=== PATIENT | male | born 1975 | race Caucasian/White ===

== ENCOUNTER 2016-11-03 15:47 | Emergency (ER) | payer OTHER ==
[~2016-11-03 15:47] MED LIST: ADV100INH INH; ALBU83IN IN; ASMA110A INH; CYCL10TA PO; FLEXERIL PO; IMOD2TAB16 PO; LIDO1DIS2 TOP; NAPR1TAB86 PO; NAPR500T OR; PROA1AER INH; PROZ20CA11 PO; RANI150T PO; REMERON PO; TRAM50TA2 OR; TRAM50TA2 PO; TRAZ100T OR; TRAZ100T4 PO; VITA200016 PO; VITAMIN B COMPLE1 PO; VITATAB11 PO; ZANT150T OR
--- NOTE | 2016-11-03 16:21 | REP ---
Chest one-view HISTORY: Chest pain Comparison: 09/06/2016 The lungs are clear. The heart is normal in size. The pulmonary vasculature is normal in appearance. Impression: No acute disease. Signed by Osito Becerra MD 11/03/2016 04:13 P
[2016-11-03 16:31] LABS: BASO % 0.4 % (0.0-1.0); EOS # 0.1 K/mm3 (0.0-0.50); EOS % 1.3 % (0.0-3.0); LARGE UNSTAINED CELL # 0.2 K/mm3 (0.0-0.4); LYMPH # 1.4 K/mm3 (1.5-4.5); LYMPH % 22.5 % (24.0-44.0); MEAN CORPUSCULAR HEMOGLOBIN 30.3 pg (27.0-33.0); MEAN CORPUSCULAR VOLUME 89.1 fl (80.0-96.0); MONO # 0.4 K/mm3 (0.0-0.8); MONO % 5.7 % (0.0-5.0); NEUTROPHILS # 4.2 K/mm3 (1.8-7.7); NEUTROPHILS % 67.1 % (36.0-66.0); PLATELET COUNT, AUTOMATED 222 k/mm3 (150-450); WHITE BLOOD COUNT 6.2 K/mm3 (4.0-10.0)
[2016-11-03] MEDS ORDERED: ASPIRIN 81 MG CHEW TABLET As Ordered ONE (16:32)
[2016-11-03 16:56] LABS: ANION GAP 9 MEQ/L (8-16); BLOOD UREA NITROGEN 18 MG/DL (7-18); CALCIUM LEVEL 8.2 MG/DL (8.5-10.1); CARBON DIOXIDE LEVEL 25 MEQ/L (21-32); CHLORIDE LEVEL 110 MEQ/L (98-107); CREATININE FOR GFR 1.21 MG/DL (0.70-1.30); GLOMERULAR FILTRATION RATE > 60.0 (>60); GLUCOSE, FASTING 127 MG/DL (70-105); POTASSIUM SERUM 4.2 MEQ/L (3.5-5.1); SODIUM LEVEL 144 MEQ/L (136-145)
[2016-11-03] MEDS ORDERED: KETOROLAC 30 MG/ML VIAL (J1885) As Ordered ONE (17:06)
--- NOTE | 2016-11-03 22:53 | EDDOCDS ---
Nurse's Notes [facility] Name: Brittany Blanc Age: 41 yrs Sex: Male : 1975 Arrival Date: 11/03/2016 Time: 15:47 Bed OBSERVATION Private MD: Pawan Mcrae M Diagnosis: Other chest pain Presentation: 11/03 15:54 Presenting complaint:. dwg 15:54 Presenting complaint: Patient states: Left sided chest pain for 2 days, ''on and off'', dwg much worse since 3pm today. Aspirin was not taken prior to arrival. Adult Sepsis Screening: The patient does not have new or worsening altered mentation. Patient's respiratory rate is less than 22. Systolic blood pressure is greater than 100. Patient has a qSOFA score of 0- Negative Sepsis Screen. Suicide/Homicide risk assessment- the patient denies having any suicidal and/or homicidal ideations and does not present with any other emotional, behavioral or mental health complaints. Status: Patient is not a director of food and nutrition services or dependent. Transition of care: patient was not received from another setting of care. 15:54 Acuity: STACY Level 2 dwg 15:54 Method Of Arrival: Walkin/Carried/Asstd dwg Triage Assessment: 15:56 General: Appears in no apparent distress, Behavior is cooperative. Pain: Pain currently dwg is 7 out of 10 on a pain scale. HIV screening NA for this visit Offered previously. Historical: - Allergies: no known allergies; - Home Meds: 1. none - PMHx: Kidney stones; Migraine Headaches; Asthma; - PSHx: Left elbow tendon repair; - Social history: Smoking status: Patient states former smoker of tobacco. No barriers to communication noted, The patient speaks fluent Lithuanian. - Family history: Father has/had cerebrovascular accident, cardiac disorder. - : The pt / caregiver states he / she is not on anticoagulants. Home medication list is obtained from the patient. - Exposure Risk Screening:: None identified. Screenin:18 Screening information is obtained from the patient. Fall risk: No risks identified. kr3 Assistance ADL's: requires no assistance with activities of daily living. Abuse/DV Screen: The patient / caregiver reports he/she is: not in a situation that causes fear, pain or injury. Nutritional screening: No deficits noted. Advance Directives: Currently, there is no health care proxy. home support is adequate. Assessment: 16:19 General: Appears in no apparent distress, comfortable, Behavior is cooperative. Pain: kr3 Location: chest Pain currently is 7 out of 10 on a pain scale. Pain radiates to left arm Quality of pain is described as tingling left arm. Neurological: No deficits noted. Cardiovascular: Rhythm is sinus rhythm No ectopy. Respiratory: Respiratory effort is even, unlabored, Breath sounds are clear bilaterally. Denies shortness of breath. Derm: Skin is normal. 17:09 Reassessment: Patient appears in no apparent distress at this time. Reassessment: kr3 informed of plan for redraws at 930PM. Pain: Location: chest Pain currently is 3 out of 10 on a pain scale. Respiratory: Respiratory effort is even, unlabored. Derm: Skin is pink, warm & dry. 18:04 Reassessment: Patient appears in no apparent distress at this time. Patient denies pain kr3 at this time. Respiratory: Respiratory effort is even, unlabored. 18:04 Adult Sepsis Screening: The patient does not have new or worsening altered mentation. kr3 Patient's respiratory rate is less than 22. Systolic blood pressure is greater than 100. Patient has a qSOFA score of 0- Negative Sepsis Screen. 19:23 General: Appears in no apparent distress, comfortable, Behavior is cooperative, mlc pleasant. Pain: Location: anterior aspect of left upper chest and left breast Pain currently is 4 out of 10 on a pain scale. Neurological: Level of Consciousness is awake, alert, Oriented to person, place, time. Cardiovascular: Capillary refill < 3 seconds Heart tones S1 S2 present Rhythm is sinus rhythm. Respiratory: Airway is patent Respiratory effort is even, unlabored, Respiratory pattern is regular, Breath sounds are clear bilaterally. Derm: Skin is pink, warm & dry. 20:32 Reassessment: Patient appears in no apparent distress at this time. pt resting mlc comfortably in bed, resp easy/unlabored. pt offers no complaints. . 21:40 Reassessment: Patient appears in no apparent distress at this time. pt resting mlc comfortably in bed, offers no complaints. labs sent per order. 22:50 General: Appears in no apparent distress, comfortable, Behavior is cooperative. mlc Neurological: Level of Consciousness is awake, alert, Oriented to person, place, time. Respiratory: Airway is patent Respiratory effort is even, unlabored, Respiratory pattern is regular. Derm: Skin is pink, warm & dry. Vital Signs: 15:49 BP 149 / 93; Pulse 89; Resp 18 S; Temp 96.7(O); Pulse Ox 100% on R/A; Weight 122.47 kg gr2 (R); Height 6 ft. 8 in. (203.20 cm) (R); Pain 3/10; 16:15 BP 129 / 86 (auto/); kr3 16:16 Pulse 80 MON; kr3 16:45 BP 129 / 73 (auto/); kr3 16:46 Pulse 70 MON; Resp 16; Pulse Ox 95% on R/A; kr3 17:15 BP 128 / 71 (auto/); kr3 17:16 Pulse 64 MON; Resp 16; Pulse Ox 95% on R/A; kr3 17:45 BP 125 / 76 (auto/); kr3 17:46 Pulse 62 MON; Resp 16; Pulse Ox 96% on R/A; kr3 18:15 BP 123 / 73 (auto/); kr3 18:16 Pulse 60 MON; Resp 16; Pulse Ox 96% on R/A; kr3 18:45 BP 124 / 79 (auto/); mlc 18:46 Pulse 56 MON; Pulse Ox 96% ; mlc 19:15 BP 127 / 82 (auto/); mlc 19:16 Pulse 58 MON; Pulse Ox 97% ; mlc 19:45 BP 125 / 67 (auto/); mlc 19:46 Pulse 56 MON; Pulse Ox 96% ; mlc 20:15 BP 130 / 83 (auto/); mlc 20:16 Pulse 64 MON; Pulse Ox 97% ; mlc 20:45 BP 131 / 85 (auto/); mlc 20:46 Pulse 66 MON; Pulse Ox 97% ; mlc 21:15 BP 132 / 86 (auto/); mlc 21:16 Pulse 68 MON; Pulse Ox 97% ; mlc 21:38 Pulse 70 MON; Pulse Ox 97% ; mlc 21:45 BP 143 / 94 (auto/); mlc 21:46 Pulse 64 MON; Pulse Ox 96% ; mlc 22:15 BP 134 / 88 (auto/); mlc 22:16 Pulse 70 MON; Pulse Ox 95% ; mlc 22:47 BP 147 / 90; Pulse 75; Resp 18; Temp 98.2(TE); Pulse Ox 97% on R/A; Pain 0/10; mirtha 15:49 Body Mass Index 29.66 (122.47 kg, 203.20 cm) gr2 Vitals: 15:49 Log In Time: November 03, 2016 at 15:49. RN notified that patient meets Red Flag gr2 criteria. ED Course: 15:49 Patient visited by Zak Bernal. gr2 15:49 Pawan Mcrae is Private Physician. gr2 15:49 Patient moved to Waiting gr2 15:52 Patient visited by Zak Bernal. gr2 15:52 Patient moved to Pre RCE gr2 15:56 Triage Initiated dwg 15:57 Patient moved to 11 dwg 15:58 Anita Sage MD is Attending Physician. sd1 16:04 Patient visited by Anita Sage MD. sd1 16:18 The patient / caregiver is instructed regarding the plan of care and ED course. Patient kr3 has correct armband on for positive identification. Placed in gown. Bed in low position. Call light in reach. Side rails up X2. vehicle monitor technician on. Pulse ox on. NIBP on. 16:19 Inserted saline lock: 20 gauge in right forearm and blood collected. kr3 16:20 Patient visited by Keith Vilchis. dem1 16:20 Basic Metabolic Profile Sent. kr3 16:20 CBC with Diff Sent. kr3 16:20 Cardiac Injury Profile Sent. kr3 16:20 Troponin Sent. kr3 16:20 EKG done. (by ED staff). Reviewed by Anita Sage MD. dem1 16:24 portable chest Returned. EDMS 17:08 Patient moved to OBSERVATION sd1 17:58 [facility] Payment Agreement was scanned into [employer] and attached to record. ks16 19:00 Ingrid Friedman,KING is Primary Nurse. mlc 19:12 Attending Physician role handed off by Anita Sage MD cs11 19:12 Fabio Rosales DO is Attending Physician. cs11 19:31 Patient visited by Ingrid Friedman,KING. mlc 20:33 Patient visited by Ingrid Friedman,KING. mlc 21:35 Patient visited by Deniz Bain PCA. jmv 21:35 EKG done. (by ED staff). Reviewed by Fabio Rosales DO. jmv 21:39 CARDIAC MARKER PANEL Sent. mlc 21:40 Patient visited by Ingrid Friedman RN. mlc 21:46 Discontinued IV lock intact, bleeding controlled, pressure dressing applied, No mlc redness/swelling at site. No procedures done that require assistance. 22:32 Pawan Mcrae is Referral Physician. cs11 22:32 Jim Franklin MD is Referral Physician. cs11 22:48 Patient visited by Roro Peguero PCA. mirtha Administered Medications: 16:32 Not Given (Duplicate Order): Aspirin Delayed Release Tablet 81 mg PO once sd1 16:34 Drug: Aspirin 81 mg [aspirin 81 mg chewable tablet (1 tabs)] Route: PO; kr3 17:09 Drug: ketorolac 30 mg [ketorolac 30 mg/mL (1 mL) injection solution (1 mL)] Route: IVP; kr3 Site: right forearm; 18:04 Follow up: Response: Pain is resolved kr3 Order Results: Lab Order: Basic Metabolic Profile; SPEC'M 11/03/16 16:16 Test: GLUCOSE, FASTING; Value: 127; Range: 70-105; Abnormal: Above high normal; Units: MG/DL; Status: F Test: BLOOD UREA NITROGEN; Value: 18; Range: 7-18; Units: MG/DL; Status: F Test: CREATININE FOR GFR; Value: 1.21; Range: 0.70-1.30; Units: MG/DL; Status: F Test: GLOMERULAR FILTRATION RATE; Value: > 60.0; Range: >60; Status: F Test: SODIUM LEVEL; Value: 144; Range: 136-145; Units: MEQ/L; Status: F Test: POTASSIUM SERUM; Value: 4.2; Range: 3.5-5.1; Units: MEQ/L; Status: F Test: CHLORIDE LEVEL; Value: 110; Range: 98-107; Abnormal: Above high normal; Units: MEQ/L; Status: F Test: CARBON DIOXIDE LEVEL; Value: 25; Range: 21-32; Units: MEQ/L; Status: F Test: ANION GAP; Value: 9; Range: 8-16; Units: MEQ/L; Status: F Test: CALCIUM LEVEL; Value: 8.2; Range: 8.5-10.1; Abnormal: Below low normal; Units: MG/DL; Status: F Test Note: ; Units are mL/min/1.73 m2 Chronic Kidney Disease Staging per NKF: Stage I & II GFR >=60 Normal to Mildly Decreased Stage III GFR 30-59 Moderately Decreased Stage IV GFR 15-29 Severely Decreased Stage V GFR <15 Very Little GFR Left ESRD GFR <15 on CYBER REVERSE ENGINEER Lab Order: CBC with Diff; SPEC'M 11/03/16 16:16 Test: WHITE BLOOD COUNT; Value: 6.2; Range: 4.0-10.0; Units: K/mm3; Status: F Test: RED BLOOD COUNT; Value: 4.85; Range: 4.30-6.10; Units: M/mm3; Status: F Test: HEMOGLOBIN; Value: 14.7; Range: 14.0-18.0; Units: g/dl; Status: F Test: HEMATOCRIT; Value: 43.2; Range: 42.0-52.0; Units: %; Status: F Test: MEAN CORPUSCULAR VOLUME; Value: 89.1; Range: 80.0-96.0; Units: fl; Status: F Test: MEAN CORPUSCULAR HEMOGLOBIN; Value: 30.3; Range: 27.0-33.0; Units: pg; Status: F Test: MEAN CORPUSCULAR HGB CONC; Value: 34.0; Range: 32.0-36.5; Units: g/dl; Status: F Test: RED CELL DISTRIBUTION WIDTH; Value: 13.0; Range: 11.5-14.5; Units: %; Status: F Test: PLATELET COUNT, AUTOMATED; Value: 222; Range: 150-450; Units: k/mm3; Status: F Test: NEUTROPHILS %; Value: 67.1; Range: 36.0-66.0; Abnormal: Above high normal; Units: %; Status: F Test: LYMPH %; Value: 22.5; Range: 24.0-44.0; Abnormal: Below low normal; Units: %; Status: F Test: MONO %; Value: 5.7; Range: 0.0-5.0; Abnormal: Above high normal; Units: %; Status: F Test: EOS %; Value: 1.3; Range: 0.0-3.0; Units: %; Status: F Test: BASO %; Value: 0.4; Range: 0.0-1.0; Units: %; Status: F Test: LARGE UNSTAINED CELL %; Value: 3.0; Range: 0.0-4.0; Units: %; Status: F Test: NEUTROPHILS #; Value: 4.2; Range: 1.8-7.7; Units: K/mm3; Status: F Test: LYMPH #; Value: 1.4; Range: 1.5-4.5; Abnormal: Below low normal; Units: K/mm3; Status: F Test: MONO #; Value: 0.4; Range: 0.0-0.8; Units: K/mm3; Status: F Test: EOS #; Value: 0.1; Range: 0.0-0.50; Units: K/mm3; Status: F Test: BASO #; Value: 0.0; Range: 0.0-0.2; Units: K/mm3; Status: F Test: LARGE UNSTAINED CELL #; Value: 0.2; Range: 0.0-0.4; Units: K/mm3; Status: F Lab Order: Cardiac Injury Profile; SPEC'M 11/03/16 16:16 Test: CPK CREATINE PHOSPHOKINASE; Value: 176; Range: 39-308; Units: U/L; Status: F Test: CK-MB VALUE MASS; Value: 1.1; Range: 0.0-3.6; Units: NG/ML; Status: F Test: MB/CK RELATIVE INDEX; Value: 0.62; Range: < OR =4; Status: F Test Note: ; DIAGNOSIS CRITERIA MMB ng/ml Relative Index (RI) NON-AMI < or = 5 N/A RODRIGUEZ ZONE > 5 < or = 4 AMI > 5 > 4 Lab Order: Troponin; SPEC'M 11/03/16 16:16 Test: TROPONIN I; Value: < 0.02; Range: < 0.10; Units: NG/ML; Status: F Test Note: ; Troponin I Reference Interval for [place] LOCI: 99th Percentile= 0.00-0.045 ng/ml Risk Stratification: <= 0.10 ng/ml Decreased Risk for Adverse Clinical Events. 0.10-1.50 ng/ml Increased Risk for Adverse Clinical Events. Evaluation of additional criterion and/or repeat testing in 2-6 hours is suggested to rule out myocardial damage. >= 1.50 ng/ml Indicative of Myocardial Injury. Lab Order: CARDIAC MARKER PANEL; SPEC'M 11/03/16 21:38 Test: CPK CREATINE PHOSPHOKINASE; Value: 140; Range: 39-308; Units: U/L; Status: F Test: CK-MB VALUE MASS; Value: 1.0; Range: 0.0-3.6; Units: NG/ML; Status: F Test: MB/CK RELATIVE INDEX; Value: 0.71; Range: < OR =4; Status: F Test: TROPONIN I; Value: < 0.02; Range: < 0.10; Units: NG/ML; Status: F Test Note: ; DIAGNOSIS CRITERIA MMB ng/ml Relative Index (RI) NON-AMI < or = 5 N/A RODRIGUEZ ZONE > 5 < or = 4 AMI > 5 > 4 Lab Order: D-Dimer Quant; SPEC'M 11/03/16 16:16 Test: D-DIMER QUANT; Value: < 270.0; Range: <500; Units: ng/ml; Status: F Radiology Order: portable chest Test: portable chest REASON FOR EXAMINATION: Chest Pain; Chest one-view; ; HISTORY: Chest pain; ; Comparison: 09/06/2016; ; The lungs are clear. The heart is normal in size. The pulmonary vasculature is; normal in appearance.; ; Impression: No acute disease.; ; ; Signed by; Osito Becerra MD 11/03/2016 04:13 P; Outcome: 21:46 Discharge Assessment: Patient awake, alert and oriented x 3. No cognitive and/or mlc functional deficits noted. Patient verbalized understanding of disposition instructions. patient administered narcotics - no. The following High Risk Discharge criteria are identified: None. Discharged to home ambulatory. Condition: good Condition: stable. Discharge instructions given to patient, Instructed on discharge instructions, follow up and referral plans. medication usage, Demonstrated understanding of instructions, medications, Pt was receptive of discharge instructions/ teaching. Prescriptions given X 1. No special radiology studies were completed. Property sent home with patient. 22:32 Discharge ordered by Provider. cs11 22:52 [place]. [facility] [place] Signatures: Dispatcher [employer] EDMS Anita Sage MD MD sd1 Ricky Echevarria, RN RN dwg Jasmyne Christine,KING RN kr3 Sudhir, Roro, EVP SALES EVP SALES mirtha Deng, Keith dem1 Fabio Rosales, DO DO cs11 Zak Bernal gr2 Ingrid Friedman,KING RN [facility] [place] Concetta, Edyta, Reg Reg ks16 Bain, Deniz, EVP SALES EVP SALES jmv MTDD
--- NOTE | 2016-11-03 22:53 | EDDOCDS ---
Physician Documentation [facility] Name: Brittany Blanc Age: 41 yrs Sex: Male : 1975 Arrival Date: 11/03/2016 Time: 15:47 Bed OBSERVATION Private MD: Pawan Mcrae M Disposition: 11/03/16 22:32 Discharged to Home/Self Care. Impression: Other chest pain. - Condition is Stable. - Discharge Instructions: Angina Pectoris, Nonspecific Chest Pain, Chest Wall Pain, Gastroesophageal Reflux Disease, Adult. - Prescriptions for Aspirin 81 mg - take 1 tablet by ORAL route once daily; 90 tablet. - Medication Reconciliation, Local Pharmacy Hours form. - Follow up: Pawan Mcrae; When: Call to arrange an appointment. Follow up: Jim Franklin; When: Call to arrange an appointment. - Problem is new. - Symptoms have improved. Historical: - Allergies: no known allergies; - Home Meds: 1. none - PMHx: Kidney stones; Migraine Headaches; Asthma; - PSHx: Left elbow tendon repair; - Social history: Smoking status: Patient states former smoker of tobacco. No barriers to communication noted, The patient speaks fluent Syriac. - Family history: Father has/had cerebrovascular accident, cardiac disorder. - : The pt / caregiver states he / she is not on anticoagulants. Home medication list is obtained from the patient. - Exposure Risk Screening:: None identified. Vital Signs: 11/03 15:49 BP 149 / 93; Pulse 89; Resp 18 S; Temp 96.7(O); Pulse Ox 100% on R/A; Weight 122.47 kg gr2 / 270 lbs (R); Height 6 ft. 8 in. (203.20 cm) (R); Pain 3/10; 16:15 BP 129 / 86 (auto/); kr3 16:16 Pulse 80 MON; kr3 16:45 BP 129 / 73 (auto/); kr3 16:46 Pulse 70 MON; Resp 16; Pulse Ox 95% on R/A; kr3 17:15 BP 128 / 71 (auto/); kr3 17:16 Pulse 64 MON; Resp 16; Pulse Ox 95% on R/A; kr3 17:45 BP 125 / 76 (auto/); kr3 17:46 Pulse 62 MON; Resp 16; Pulse Ox 96% on R/A; kr3 18:15 BP 123 / 73 (auto/); kr3 18:16 Pulse 60 MON; Resp 16; Pulse Ox 96% on R/A; kr3 18:45 BP 124 / 79 (auto/); mlc 18:46 Pulse 56 MON; Pulse Ox 96% ; mlc 19:15 BP 127 / 82 (auto/); mlc 19:16 Pulse 58 MON; Pulse Ox 97% ; mlc 19:45 BP 125 / 67 (auto/); mlc 19:46 Pulse 56 MON; Pulse Ox 96% ; mlc 20:15 BP 130 / 83 (auto/); mlc 20:16 Pulse 64 MON; Pulse Ox 97% ; mlc 20:45 BP 131 / 85 (auto/); mlc 20:46 Pulse 66 MON; Pulse Ox 97% ; mlc 21:15 BP 132 / 86 (auto/); mlc 21:16 Pulse 68 MON; Pulse Ox 97% ; mlc 21:38 Pulse 70 MON; Pulse Ox 97% ; mlc 21:45 BP 143 / 94 (auto/); mlc 21:46 Pulse 64 MON; Pulse Ox 96% ; mlc 22:15 BP 134 / 88 (auto/); mlc 22:16 Pulse 70 MON; Pulse Ox 95% ; mlc 22:47 BP 147 / 90; Pulse 75; Resp 18; Temp 98.2(TE); Pulse Ox 97% on R/A; Pain 0/10; mirtha 15:49 Body Mass Index 29.66 (122.47 kg, 203.20 cm) gr2 MDM: 15:58 Marine Drafter/Pulse Ox/q 30 min VS ordered. sd1 15:58 IV Saline Lock ordered. sd1 15:58 Rhythm Strip to chart ordered. sd1 15:58 Undress patient appropriately for examination ordered. sd1 16:01 portable chest Ordered. EDMS 16:01 Basic Metabolic Profile Ordered. EDMS 16:01 CBC with Diff Ordered. EDMS 16:01 Cardiac Injury Profile Ordered. EDMS 16:01 Troponin Ordered. EDMS 16:01 ECG WITH READING ER PHYS+CARDIAG ordered. EDMS 16:23 Aspirin Delayed Release Tablet 81 mg PO once ordered. sd1 16:32 Aspirin Chewable Tablet 81 mg PO once ordered. sd1 16:49 CBC with Diff Reviewed. sd1 16:49 portable chest Reviewed. sd1 17:03 Basic Metabolic Profile Reviewed. sd1 17:03 Cardiac Injury Profile Reviewed. sd1 17:03 Troponin Reviewed. sd1 17:04 ketorolac 30 mg IVP once ordered. sd1 17:04 Redraw CIP &Troponin (put time in details section) ordered. sd1 17:05 Repeat EKG (put time details section) ordered. sd1 17:05 Misc. Nursing Order ordered. sd1 17:19 Redraw CIP &Troponin (put time in details section) complete. deg 17:19 Repeat EKG (put time details section) complete. deg 17:19 ECG WITH READING ER PHYS ordered. EDMS 17:20 CARDIAC MARKER PANEL Ordered. EDMS 17:35 D-Dimer Quant Ordered. EDMS 17:46 Financial registration complete. ks16 17:58 [facility] Payment Agreement was scanned into [employer] and attached to record. ks16 18:36 D-Dimer Quant Reviewed. sd1 Administered Medications: 16:32 Not Given (Duplicate Order): Aspirin Delayed Release Tablet 81 mg PO once sd1 16:34 Drug: Aspirin 81 mg [aspirin 81 mg chewable tablet (1 tabs)] Route: PO; kr3 17:09 Drug: ketorolac 30 mg [ketorolac 30 mg/mL (1 mL) injection solution (1 mL)] Route: IVP; kr3 Site: right forearm; 18:04 Follow up: Response: Pain is resolved kr3 Signatures: Dispatcher [employer] Anita Mota MD MD sd1 Shannan Bullock, Ranger Aide Unit deg Ricky Echevarria RN RN dwg Robie, Kathleen, RN RN kr3 Fabio Rosales, DO cs11 Ingrid Friedman RN RN mlc Sorenson, Kimberly, Reg Reg ks16 The chart was reviewed and I authenticate all verbal orders and agree with the evaluation and treatment provided.Attachments: 17:58 [facility] [place] Agreement ks16 MTDD
--- NOTE | 2016-11-04 07:28 | ECGEPIP ---
Stationary ECG Study [facility] - ED Test Date: 2016-11-03 Pat Name: ALFONSO JAIME Department: Room: - Gender: M Bioinformatics Team Member: yaya : 1975 Requested By: Anita Sage Order Number: [id number] Reading MD: Anita Sage Measurements Intervals [place] Rate: 75 P: 67 IN: 155 QRS: 55 QRSD: 97 T: 55 QT: 361 QTc: 403 Interpretive Statements SINUS RHYTHM LVH NSTTW ABNORMALITY SIMILAR 09/06/16 Electronically Signed On 11-04-2016 7:28:09 EST by Anita Sage
--- NOTE | 2016-11-04 07:35 | ECGEPIP ---
Stationary ECG Study [facility] - ED Test Date: 2016-11-03 Pat Name: ALFONSO JAIME Department: Room: - Gender: M Aircraft Time Clerk: aleksander : 1975 Requested By: Anita Sage Order Number: [id number] Reading MD: Anita Sage Measurements Intervals [place] Rate: 71 P: 50 PA: 145 QRS: 39 QRSD: 100 T: 38 QT: 386 QTc: 422 Interpretive Statements SINUS RHYTHM NSTTW ABNORMALITY SIMILAR 11/03/16 16:20 Electronically Signed On 11-04-2016 7:35:26 EST by Anita Sage
--- NOTE | 2016-11-05 23:53 | EDDOCDS ---
Physician Documentation [facility] Name: Brittany Blanc Age: 41 yrs Sex: Male : 1975 Arrival Date: 11/03/2016 Time: 15:47 Bed OBSERVATION Private MD: Pawan Mcrae M Disposition: 11/03/16 22:32 Discharged to Home/Self Care. Impression: Other chest pain. - Condition is Stable. - Discharge Instructions: Angina Pectoris, Nonspecific Chest Pain, Chest Wall Pain, Gastroesophageal Reflux Disease, Adult. - Prescriptions for Aspirin 81 mg - take 1 tablet by ORAL route once daily; 90 tablet. - Medication Reconciliation, Local Pharmacy Hours form. - Follow up: Pawan Mcrae; When: Call to arrange an appointment. Follow up: Jim Franklin; When: Call to arrange an appointment. - Problem is new. - Symptoms have improved. Historical: - Allergies: no known allergies; - Home Meds: 1. none - PMHx: Kidney stones; Migraine Headaches; Asthma; - PSHx: Left elbow tendon repair; - Social history: Smoking status: Patient states former smoker of tobacco. No barriers to communication noted, The patient speaks fluent Yoruba. - Family history: Father has/had cerebrovascular accident, cardiac disorder. - : The pt / caregiver states he / she is not on anticoagulants. Home medication list is obtained from the patient. - Exposure Risk Screening:: None identified. Vital Signs: 11/03 15:49 BP 149 / 93; Pulse 89; Resp 18 S; Temp 96.7(O); Pulse Ox 100% on R/A; Weight 122.47 kg gr2 / 270 lbs (R); Height 6 ft. 8 in. (203.20 cm) (R); Pain 3/10; 16:15 BP 129 / 86 (auto/); kr3 16:16 Pulse 80 MON; kr3 16:45 BP 129 / 73 (auto/); kr3 16:46 Pulse 70 MON; Resp 16; Pulse Ox 95% on R/A; kr3 17:15 BP 128 / 71 (auto/); kr3 17:16 Pulse 64 MON; Resp 16; Pulse Ox 95% on R/A; kr3 17:45 BP 125 / 76 (auto/); kr3 17:46 Pulse 62 MON; Resp 16; Pulse Ox 96% on R/A; kr3 18:15 BP 123 / 73 (auto/); kr3 18:16 Pulse 60 MON; Resp 16; Pulse Ox 96% on R/A; kr3 18:45 BP 124 / 79 (auto/); mlc 18:46 Pulse 56 MON; Pulse Ox 96% ; mlc 19:15 BP 127 / 82 (auto/); mlc 19:16 Pulse 58 MON; Pulse Ox 97% ; mlc 19:45 BP 125 / 67 (auto/); mlc 19:46 Pulse 56 MON; Pulse Ox 96% ; mlc 20:15 BP 130 / 83 (auto/); mlc 20:16 Pulse 64 MON; Pulse Ox 97% ; mlc 20:45 BP 131 / 85 (auto/); mlc 20:46 Pulse 66 MON; Pulse Ox 97% ; mlc 21:15 BP 132 / 86 (auto/); mlc 21:16 Pulse 68 MON; Pulse Ox 97% ; mlc 21:38 Pulse 70 MON; Pulse Ox 97% ; mlc 21:45 BP 143 / 94 (auto/); mlc 21:46 Pulse 64 MON; Pulse Ox 96% ; mlc 22:15 BP 134 / 88 (auto/); mlc 22:16 Pulse 70 MON; Pulse Ox 95% ; mlc 22:47 BP 147 / 90; Pulse 75; Resp 18; Temp 98.2(TE); Pulse Ox 97% on R/A; Pain 0/10; mirtha 15:49 Body Mass Index 29.66 (122.47 kg, 203.20 cm) gr2 MDM: 15:58 Airflight Attendants Supervisor/Pulse Ox/q 30 min VS ordered. sd1 15:58 IV Saline Lock ordered. sd1 15:58 Rhythm Strip to chart ordered. sd1 15:58 Undress patient appropriately for examination ordered. sd1 16:01 portable chest Ordered. EDMS 16:01 Basic Metabolic Profile Ordered. EDMS 16:01 CBC with Diff Ordered. EDMS 16:01 Cardiac Injury Profile Ordered. EDMS 16:01 Troponin Ordered. EDMS 16:01 ECG WITH READING ER PHYS+CARDIAG ordered. EDMS 16:23 Aspirin Delayed Release Tablet 81 mg PO once ordered. sd1 16:32 Aspirin Chewable Tablet 81 mg PO once ordered. sd1 16:49 CBC with Diff Reviewed. sd1 16:49 portable chest Reviewed. sd1 17:03 Basic Metabolic Profile Reviewed. sd1 17:03 Cardiac Injury Profile Reviewed. sd1 17:03 Troponin Reviewed. sd1 17:04 ketorolac 30 mg IVP once ordered. sd1 17:04 Redraw CIP &Troponin (put time in details section) ordered. sd1 17:05 Repeat EKG (put time details section) ordered. sd1 17:05 Misc. Nursing Order ordered. sd1 17:19 Redraw CIP &Troponin (put time in details section) complete. deg 17:19 Repeat EKG (put time details section) complete. deg 17:19 ECG WITH READING ER PHYS ordered. EDMS 17:20 CARDIAC MARKER PANEL Ordered. EDMS 17:35 D-Dimer Quant Ordered. EDMS 17:46 Financial registration complete. ks16 17:58 [facility] Payment Agreement was scanned into [employer] and attached to record. ks16 18:36 D-Dimer Quant Reviewed. sd11/04 09:29 T-Sheet-- Draft Copy was scanned into [employer] and attached to record. gb 09:30 ECG/EKG was scanned into [employer] and attached to record. gb Administered Medications: 11/03 16:32 Not Given (Duplicate Order): Aspirin Delayed Release Tablet 81 mg PO once sd1 16:34 Drug: Aspirin 81 mg [aspirin 81 mg chewable tablet (1 tabs)] Route: PO; kr3 17:09 Drug: ketorolac 30 mg [ketorolac 30 mg/mL (1 mL) injection solution (1 mL)] Route: IVP; kr3 Site: right forearm; 18:04 Follow up: Response: Pain is resolved kr3 Signatures: Dispatcher [employer] EDAnita Nick MD MD sd1 Shannan Bullock, Roll Coating Machine Operator Unit deg Ricky Echevarria RN RN dwg Deisy Gunn, Reg Reg gb Jasmyne Christine RN RN kr3 Fabio Rosales, DO cs11 Ingrid FriedmanRN RN Edyta Amor, Reg Reg ks16 The chart was reviewed and I authenticate all verbal orders and agree with the evaluation and treatment provided.Attachments: 17:58 [facility] Payment Agreement ks16 11/04 09:29 T-Sheet-- Draft Copy gb 09:30 ECG/EKG gb Chart Complete MTDD
--- NOTE | 2016-11-05 23:53 | EDDOCDS ---
Nurse's Notes [facility] Name: Alfonso Jaime Age: 41 yrs Sex: Male : 1975 Arrival Date: 11/03/2016 Time: 15:47 Bed OBSERVATION Private MD: Pawan Mcrae M Diagnosis: Other chest pain Presentation: 11/03 15:54 Presenting complaint:. dwg 15:54 Presenting complaint: Patient states: Left sided chest pain for 2 days, ''on and off'', dwg much worse since 3pm today. Aspirin was not taken prior to arrival. Adult Sepsis Screening: The patient does not have new or worsening altered mentation. Patient's respiratory rate is less than 22. Systolic blood pressure is greater than 100. Patient has a qSOFA score of 0- Negative Sepsis Screen. Suicide/Homicide risk assessment- the patient denies having any suicidal and/or homicidal ideations and does not present with any other emotional, behavioral or mental health complaints. Status: Patient is not a service architect or dependent. Transition of care: patient was not received from another setting of care. 15:54 Acuity: STACY Level 2 dwg 15:54 Method Of Arrival: Walkin/Carried/Asstd dwg Triage Assessment: 15:56 General: Appears in no apparent distress, Behavior is cooperative. Pain: Pain currently dwg is 7 out of 10 on a pain scale. HIV screening NA for this visit Offered previously. Historical: - Allergies: no known allergies; - Home Meds: 1. none - PMHx: Kidney stones; Migraine Headaches; Asthma; - PSHx: Left elbow tendon repair; - Social history: Smoking status: Patient states former smoker of tobacco. No barriers to communication noted, The patient speaks fluent Turkish. - Family history: Father has/had cerebrovascular accident, cardiac disorder. - : The pt / caregiver states he / she is not on anticoagulants. Home medication list is obtained from the patient. - Exposure Risk Screening:: None identified. Screenin:18 Screening information is obtained from the patient. Fall risk: No risks identified. kr3 Assistance ADL's: requires no assistance with activities of daily living. Abuse/DV Screen: The patient / caregiver reports he/she is: not in a situation that causes fear, pain or injury. Nutritional screening: No deficits noted. Advance Directives: Currently, there is no health care proxy. home support is adequate. Assessment: 16:19 General: Appears in no apparent distress, comfortable, Behavior is cooperative. Pain: kr3 Location: chest Pain currently is 7 out of 10 on a pain scale. Pain radiates to left arm Quality of pain is described as tingling left arm. Neurological: No deficits noted. Cardiovascular: Rhythm is sinus rhythm No ectopy. Respiratory: Respiratory effort is even, unlabored, Breath sounds are clear bilaterally. Denies shortness of breath. Derm: Skin is normal. 17:09 Reassessment: Patient appears in no apparent distress at this time. Reassessment: kr3 informed of plan for redraws at 930PM. Pain: Location: chest Pain currently is 3 out of 10 on a pain scale. Respiratory: Respiratory effort is even, unlabored. Derm: Skin is pink, warm & dry. 18:04 Reassessment: Patient appears in no apparent distress at this time. Patient denies pain kr3 at this time. Respiratory: Respiratory effort is even, unlabored. 18:04 Adult Sepsis Screening: The patient does not have new or worsening altered mentation. kr3 Patient's respiratory rate is less than 22. Systolic blood pressure is greater than 100. Patient has a qSOFA score of 0- Negative Sepsis Screen. 19:23 General: Appears in no apparent distress, comfortable, Behavior is cooperative, mlc pleasant. Pain: Location: anterior aspect of left upper chest and left breast Pain currently is 4 out of 10 on a pain scale. Neurological: Level of Consciousness is awake, alert, Oriented to person, place, time. Cardiovascular: Capillary refill < 3 seconds Heart tones S1 S2 present Rhythm is sinus rhythm. Respiratory: Airway is patent Respiratory effort is even, unlabored, Respiratory pattern is regular, Breath sounds are clear bilaterally. Derm: Skin is pink, warm & dry. 20:32 Reassessment: Patient appears in no apparent distress at this time. pt resting mlc comfortably in bed, resp easy/unlabored. pt offers no complaints. . 21:40 Reassessment: Patient appears in no apparent distress at this time. pt resting mlc comfortably in bed, offers no complaints. labs sent per order. 22:50 General: Appears in no apparent distress, comfortable, Behavior is cooperative. mlc Neurological: Level of Consciousness is awake, alert, Oriented to person, place, time. Respiratory: Airway is patent Respiratory effort is even, unlabored, Respiratory pattern is regular. Derm: Skin is pink, warm & dry. Vital Signs: 15:49 BP 149 / 93; Pulse 89; Resp 18 S; Temp 96.7(O); Pulse Ox 100% on R/A; Weight 122.47 kg gr2 (R); Height 6 ft. 8 in. (203.20 cm) (R); Pain 3/10; 16:15 BP 129 / 86 (auto/); kr3 16:16 Pulse 80 MON; kr3 16:45 BP 129 / 73 (auto/); kr3 16:46 Pulse 70 MON; Resp 16; Pulse Ox 95% on R/A; kr3 17:15 BP 128 / 71 (auto/); kr3 17:16 Pulse 64 MON; Resp 16; Pulse Ox 95% on R/A; kr3 17:45 BP 125 / 76 (auto/); kr3 17:46 Pulse 62 MON; Resp 16; Pulse Ox 96% on R/A; kr3 18:15 BP 123 / 73 (auto/); kr3 18:16 Pulse 60 MON; Resp 16; Pulse Ox 96% on R/A; kr3 18:45 BP 124 / 79 (auto/); mlc 18:46 Pulse 56 MON; Pulse Ox 96% ; mlc 19:15 BP 127 / 82 (auto/); mlc 19:16 Pulse 58 MON; Pulse Ox 97% ; mlc 19:45 BP 125 / 67 (auto/); mlc 19:46 Pulse 56 MON; Pulse Ox 96% ; mlc 20:15 BP 130 / 83 (auto/); mlc 20:16 Pulse 64 MON; Pulse Ox 97% ; mlc 20:45 BP 131 / 85 (auto/); mlc 20:46 Pulse 66 MON; Pulse Ox 97% ; mlc 21:15 BP 132 / 86 (auto/); mlc 21:16 Pulse 68 MON; Pulse Ox 97% ; mlc 21:38 Pulse 70 MON; Pulse Ox 97% ; mlc 21:45 BP 143 / 94 (auto/); mlc 21:46 Pulse 64 MON; Pulse Ox 96% ; mlc 22:15 BP 134 / 88 (auto/); mlc 22:16 Pulse 70 MON; Pulse Ox 95% ; mlc 22:47 BP 147 / 90; Pulse 75; Resp 18; Temp 98.2(TE); Pulse Ox 97% on R/A; Pain 0/10; mirtha 15:49 Body Mass Index 29.66 (122.47 kg, 203.20 cm) gr2 Vitals: 15:49 Log In Time: November 03, 2016 at 15:49. RN notified that patient meets Red Flag gr2 criteria. ED Course: 15:49 Patient visited by Zak Bernal. gr2 15:49 Pawan Mcrae is Private Physician. gr2 15:49 Patient moved to Waiting gr2 15:52 Patient visited by Zak Bernal. gr2 15:52 Patient moved to Pre RCE gr2 15:56 Triage Initiated dwg 15:57 Patient moved to 11 dwg 15:58 Anita Sage MD is Attending Physician. sd1 16:04 Patient visited by Anita Sage MD. sd1 16:18 The patient / caregiver is instructed regarding the plan of care and ED course. Patient kr3 has correct armband on for positive identification. Placed in gown. Bed in low position. Call light in reach. Side rails up X2. dry wall installations mechanic on. Pulse ox on. NIBP on. 16:19 Inserted saline lock: 20 gauge in right forearm and blood collected. kr3 16:20 Patient visited by Keith Vilchis. dem1 16:20 Basic Metabolic Profile Sent. kr3 16:20 CBC with Diff Sent. kr3 16:20 Cardiac Injury Profile Sent. kr3 16:20 Troponin Sent. kr3 16:20 EKG done. (by ED staff). Reviewed by Anita Sage MD. dem1 16:24 portable chest Returned. EDMS 17:08 Patient moved to OBSERVATION sd1 17:58 [facility] Payment Agreement was scanned into [employer] and attached to record. ks16 19:00 Ingrid Friedman,KING is Primary Nurse. mlc 19:12 Attending Physician role handed off by Anita Sage MD cs11 19:12 Fabio Rosales DO is Attending Physician. cs11 19:31 Patient visited by Ingrid Friedman,KING. mlc 20:33 Patient visited by Ingrid Friedman,KING. mlc 21:35 Patient visited by Deniz Bain PCA. jmv 21:35 EKG done. (by ED staff). Reviewed by Fabio Rosales DO. jmv 21:39 CARDIAC MARKER PANEL Sent. mlc 21:40 Patient visited by Ingrid Friedman RN. mlc 21:46 Discontinued IV lock intact, bleeding controlled, pressure dressing applied, No mlc redness/swelling at site. No procedures done that require assistance. 22:32 Pawan Mcrae is Referral Physician. cs11 22:32 Jim Franklin MD is Referral Physician. cs11 22:48 Patient visited by Roro Peguero PCA. mirtha 11/04 07:53 EKG-ADULT Returned. EDMS 07:53 ECG WITH READING ER PHYS Returned. EDMS 09:29 T-Sheet-- Draft Copy was scanned into [employer] and attached to record. gb 09:30 ECG/EKG was scanned into [employer] and attached to record. gb Administered Medications: 11/03 16:32 Not Given (Duplicate Order): Aspirin Delayed Release Tablet 81 mg PO once sd1 16:34 Drug: Aspirin 81 mg [aspirin 81 mg chewable tablet (1 tabs)] Route: PO; kr3 17:09 Drug: ketorolac 30 mg [ketorolac 30 mg/mL (1 mL) injection solution (1 mL)] Route: IVP; kr3 Site: right forearm; 18:04 Follow up: Response: Pain is resolved kr3 Order Results: Lab Order: Basic Metabolic Profile; SPEC'M 11/03/16 16:16 Test: GLUCOSE, FASTING; Value: 127; Range: 70-105; Abnormal: Above high normal; Units: MG/DL; Status: F Test: BLOOD UREA NITROGEN; Value: 18; Range: 7-18; Units: MG/DL; Status: F Test: CREATININE FOR GFR; Value: 1.21; Range: 0.70-1.30; Units: MG/DL; Status: F Test: GLOMERULAR FILTRATION RATE; Value: > 60.0; Range: >60; Status: F Test: SODIUM LEVEL; Value: 144; Range: 136-145; Units: MEQ/L; Status: F Test: POTASSIUM SERUM; Value: 4.2; Range: 3.5-5.1; Units: MEQ/L; Status: F Test: CHLORIDE LEVEL; Value: 110; Range: 98-107; Abnormal: Above high normal; Units: MEQ/L; Status: F Test: CARBON DIOXIDE LEVEL; Value: 25; Range: 21-32; Units: MEQ/L; Status: F Test: ANION GAP; Value: 9; Range: 8-16; Units: MEQ/L; Status: F Test: CALCIUM LEVEL; Value: 8.2; Range: 8.5-10.1; Abnormal: Below low normal; Units: MG/DL; Status: F Test Note: ; Units are mL/min/1.73 m2 Chronic Kidney Disease Staging per NKF: Stage I & II GFR >=60 Normal to Mildly Decreased Stage III GFR 30-59 Moderately Decreased Stage IV GFR 15-29 Severely Decreased Stage V GFR <15 Very Little GFR Left ESRD GFR <15 on HOPPER FEEDER Lab Order: CBC with Diff; SPEC'M 11/03/16 16:16 Test: WHITE BLOOD COUNT; Value: 6.2; Range: 4.0-10.0; Units: K/mm3; Status: F Test: RED BLOOD COUNT; Value: 4.85; Range: 4.30-6.10; Units: M/mm3; Status: F Test: HEMOGLOBIN; Value: 14.7; Range: 14.0-18.0; Units: g/dl; Status: F Test: HEMATOCRIT; Value: 43.2; Range: 42.0-52.0; Units: %; Status: F Test: MEAN CORPUSCULAR VOLUME; Value: 89.1; Range: 80.0-96.0; Units: fl; Status: F Test: MEAN CORPUSCULAR HEMOGLOBIN; Value: 30.3; Range: 27.0-33.0; Units: pg; Status: F Test: MEAN CORPUSCULAR HGB CONC; Value: 34.0; Range: 32.0-36.5; Units: g/dl; Status: F Test: RED CELL DISTRIBUTION WIDTH; Value: 13.0; Range: 11.5-14.5; Units: %; Status: F Test: PLATELET COUNT, AUTOMATED; Value: 222; Range: 150-450; Units: k/mm3; Status: F Test: NEUTROPHILS %; Value: 67.1; Range: 36.0-66.0; Abnormal: Above high normal; Units: %; Status: F Test: LYMPH %; Value: 22.5; Range: 24.0-44.0; Abnormal: Below low normal; Units: %; Status: F Test: MONO %; Value: 5.7; Range: 0.0-5.0; Abnormal: Above high normal; Units: %; Status: F Test: EOS %; Value: 1.3; Range: 0.0-3.0; Units: %; Status: F Test: BASO %; Value: 0.4; Range: 0.0-1.0; Units: %; Status: F Test: LARGE UNSTAINED CELL %; Value: 3.0; Range: 0.0-4.0; Units: %; Status: F Test: NEUTROPHILS #; Value: 4.2; Range: 1.8-7.7; Units: K/mm3; Status: F Test: LYMPH #; Value: 1.4; Range: 1.5-4.5; Abnormal: Below low normal; Units: K/mm3; Status: F Test: MONO #; Value: 0.4; Range: 0.0-0.8; Units: K/mm3; Status: F Test: EOS #; Value: 0.1; Range: 0.0-0.50; Units: K/mm3; Status: F Test: BASO #; Value: 0.0; Range: 0.0-0.2; Units: K/mm3; Status: F Test: LARGE UNSTAINED CELL #; Value: 0.2; Range: 0.0-0.4; Units: K/mm3; Status: F Lab Order: Cardiac Injury Profile; SPEC'M 11/03/16 16:16 Test: CPK CREATINE PHOSPHOKINASE; Value: 176; Range: 39-308; Units: U/L; Status: F Test: CK-MB VALUE MASS; Value: 1.1; Range: 0.0-3.6; Units: NG/ML; Status: F Test: MB/CK RELATIVE INDEX; Value: 0.62; Range: < OR =4; Status: F Test Note: ; DIAGNOSIS CRITERIA MMB ng/ml Relative Index (RI) NON-AMI < or = 5 N/A RODRIGUEZ ZONE > 5 < or = 4 AMI > 5 > 4 Lab Order: Troponin; SPEC'M 11/03/16 16:16 Test: TROPONIN I; Value: < 0.02; Range: < 0.10; Units: NG/ML; Status: F Test Note: ; Troponin I Reference Interval for [employer] LOCI: 99th Percentile= 0.00-0.045 ng/ml Risk Stratification: <= 0.10 ng/ml Decreased Risk for Adverse Clinical Events. 0.10-1.50 ng/ml Increased Risk for Adverse Clinical Events. Evaluation of additional criterion and/or repeat testing in 2-6 hours is suggested to rule out myocardial damage. >= 1.50 ng/ml Indicative of Myocardial Injury. Lab Order: CARDIAC MARKER PANEL; SPEC'M 11/03/16 21:38 Test: CPK CREATINE PHOSPHOKINASE; Value: 140; Range: 39-308; Units: U/L; Status: F Test: CK-MB VALUE MASS; Value: 1.0; Range: 0.0-3.6; Units: NG/ML; Status: F Test: MB/CK RELATIVE INDEX; Value: 0.71; Range: < OR =4; Status: F Test: TROPONIN I; Value: < 0.02; Range: < 0.10; Units: NG/ML; Status: F Test Note: ; DIAGNOSIS CRITERIA MMB ng/ml Relative Index (RI) NON-AMI < or = 5 N/A RODRIGUEZ ZONE > 5 < or = 4 AMI > 5 > 4 Lab Order: D-Dimer Quant; SPEC'M 11/03/16 16:16 Test: D-DIMER QUANT; Value: < 270.0; Range: <500; Units: ng/ml; Status: F Radiology Order: portable chest Test: portable chest REASON FOR EXAMINATION: Chest Pain; Chest one-view; ; HISTORY: Chest pain; ; Comparison: 09/06/2016; ; The lungs are clear. The heart is normal in size. 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; : 1975 Requested By: Anita Sage; Order Number: [id number] Reading MD: Anita Sage; Measurements; Intervals [place]; Rate: 75 P: 67; MN: 155 QRS: 55; QRSD: 97 T: 55; QT: 361; QTc: 403; Interpretive Statements; SINUS RHYTHM; LVH; NSTTW ABNORMALITY; SIMILAR 09/06/16; Electronically Signed On 11-04-2016 7:28:09 EST by Anita Sage; Radiology Order: ECG WITH READING ER PHYS Test: ECG WITH READING ER PHYS REASON FOR EXAMINATION: CHEST PAIN; Stationary ECG Study; [facility] ED; ; Test Date: 2016-11-03; Pat Name: ALOFNSO JAIME Department:; Room: -; Gender: M Distributor Sales Consultant: [email or web address]; : 1975 Requested By: Anita Sage; Order Number: [id number] Reading MD: Anita Sage; Measurements; Intervals [place]; Rate: 71 P: 50; MN: 145 QRS: 39; QRSD: 100 T: 38; QT: 386; QTc: 422; Interpretive Statements; SINUS RHYTHM; NSTTW ABNORMALITY; SIMILAR 11/03/16 16:20; Electronically Signed On 11-04-2016 7:35:26 EST by Anita Sage; Outcome: 21:46 Discharge Assessment: Patient awake, alert and oriented x 3. No cognitive and/or mlc functional deficits noted. Patient verbalized understanding of disposition instructions. patient administered narcotics - no. The following High Risk Discharge criteria are identified: None. Discharged to home ambulatory. Condition: good Condition: stable. Discharge instructions given to patient, Instructed on discharge instructions, follow up and referral plans. medication usage, Demonstrated understanding of instructions, medications, Pt was receptive of discharge instructions/ teaching. Prescriptions given X 1. No special radiology studies were completed. Property sent home with patient. 22:32 Discharge ordered by Provider. cs11 22:52 Patient left the ED. [facility] [place] Signatures: Dispatcher Med[employer] EDLA Anita Sage MD MD sd1 Ricky Echevarria, RN RN williamg Deisy Gunn, Reg Reg Jasmyne Fields,RN RN kr3 Sudhir, Roro, FNPS FNPS mirtha Deng, Keith dem1 Fabio Rosales, DO cs11 Zak Bernal gr2 Ingrid Friedman,RN RN [facility] [place] Edyta Hylton, Reg Reg ks16 Bain, Deniz, FNPS FNPS jmv Chart Complete MTDD
--- NOTE | 2016-11-05 23:53 | EDDOCDS ---
Physician Documentation [facility] Name: Brittany Blanc Age: 41 yrs Sex: Male : 1975 Arrival Date: 11/03/2016 Time: 15:47 Bed OBSERVATION Private MD: Pawan Mcrae M Disposition: 11/03/16 22:32 Discharged to Home/Self Care. Impression: Other chest pain. - Condition is Stable. - Discharge Instructions: Angina Pectoris, Nonspecific Chest Pain, Chest Wall Pain, Gastroesophageal Reflux Disease, Adult. - Prescriptions for Aspirin 81 mg - take 1 tablet by ORAL route once daily; 90 tablet. - Medication Reconciliation, Local Pharmacy Hours form. - Follow up: Pawan Mcrae; When: Call to arrange an appointment. Follow up: Jim Franklin; When: Call to arrange an appointment. - Problem is new. - Symptoms have improved. Historical: - Allergies: no known allergies; - Home Meds: 1. none - PMHx: Kidney stones; Migraine Headaches; Asthma; - PSHx: Left elbow tendon repair; - Social history: Smoking status: Patient states former smoker of tobacco. No barriers to communication noted, The patient speaks fluent Maltese. - Family history: Father has/had cerebrovascular accident, cardiac disorder. - : The pt / caregiver states he / she is not on anticoagulants. Home medication list is obtained from the patient. - Exposure Risk Screening:: None identified. Vital Signs: 11/03 15:49 BP 149 / 93; Pulse 89; Resp 18 S; Temp 96.7(O); Pulse Ox 100% on R/A; Weight 122.47 kg gr2 / 270 lbs (R); Height 6 ft. 8 in. (203.20 cm) (R); Pain 3/10; 16:15 BP 129 / 86 (auto/); kr3 16:16 Pulse 80 MON; kr3 16:45 BP 129 / 73 (auto/); kr3 16:46 Pulse 70 MON; Resp 16; Pulse Ox 95% on R/A; kr3 17:15 BP 128 / 71 (auto/); kr3 17:16 Pulse 64 MON; Resp 16; Pulse Ox 95% on R/A; kr3 17:45 BP 125 / 76 (auto/); kr3 17:46 Pulse 62 MON; Resp 16; Pulse Ox 96% on R/A; kr3 18:15 BP 123 / 73 (auto/); kr3 18:16 Pulse 60 MON; Resp 16; Pulse Ox 96% on R/A; kr3 18:45 BP 124 / 79 (auto/); mlc 18:46 Pulse 56 MON; Pulse Ox 96% ; mlc 19:15 BP 127 / 82 (auto/); mlc 19:16 Pulse 58 MON; Pulse Ox 97% ; mlc 19:45 BP 125 / 67 (auto/); mlc 19:46 Pulse 56 MON; Pulse Ox 96% ; mlc 20:15 BP 130 / 83 (auto/); mlc 20:16 Pulse 64 MON; Pulse Ox 97% ; mlc 20:45 BP 131 / 85 (auto/); mlc 20:46 Pulse 66 MON; Pulse Ox 97% ; mlc 21:15 BP 132 / 86 (auto/); mlc 21:16 Pulse 68 MON; Pulse Ox 97% ; mlc 21:38 Pulse 70 MON; Pulse Ox 97% ; mlc 21:45 BP 143 / 94 (auto/); mlc 21:46 Pulse 64 MON; Pulse Ox 96% ; mlc 22:15 BP 134 / 88 (auto/); mlc 22:16 Pulse 70 MON; Pulse Ox 95% ; mlc 22:47 BP 147 / 90; Pulse 75; Resp 18; Temp 98.2(TE); Pulse Ox 97% on R/A; Pain 0/10; mirtha 15:49 Body Mass Index 29.66 (122.47 kg, 203.20 cm) gr2 MDM: 15:58 Medical Tech/Pulse Ox/q 30 min VS ordered. sd1 15:58 IV Saline Lock ordered. sd1 15:58 Rhythm Strip to chart ordered. sd1 15:58 Undress patient appropriately for examination ordered. sd1 16:01 portable chest Ordered. EDMS 16:01 Basic Metabolic Profile Ordered. EDMS 16:01 CBC with Diff Ordered. EDMS 16:01 Cardiac Injury Profile Ordered. EDMS 16:01 Troponin Ordered. EDMS 16:01 ECG WITH READING ER PHYS+CARDIAG ordered. EDMS 16:23 Aspirin Delayed Release Tablet 81 mg PO once ordered. sd1 16:32 Aspirin Chewable Tablet 81 mg PO once ordered. sd1 16:49 CBC with Diff Reviewed. sd1 16:49 portable chest Reviewed. sd1 17:03 Basic Metabolic Profile Reviewed. sd1 17:03 Cardiac Injury Profile Reviewed. sd1 17:03 Troponin Reviewed. sd1 17:04 ketorolac 30 mg IVP once ordered. sd1 17:04 Redraw CIP &Troponin (put time in details section) ordered. sd1 17:05 Repeat EKG (put time details section) ordered. sd1 17:05 Misc. Nursing Order ordered. sd1 17:19 Redraw CIP &Troponin (put time in details section) complete. deg 17:19 Repeat EKG (put time details section) complete. deg 17:19 ECG WITH READING ER PHYS ordered. EDMS 17:20 CARDIAC MARKER PANEL Ordered. EDMS 17:35 D-Dimer Quant Ordered. EDMS 17:46 Financial registration complete. [email or web address] 17:58 [facility] Payment Agreement was scanned into [employer] and attached to record. ks16 18:36 D-Dimer Quant Reviewed. sd11/04 09:29 T-Sheet-- Draft Copy was scanned into [employer] and attached to record. gb 09:30 ECG/EKG was scanned into [employer] and attached to record. gb Administered Medications: 11/03 16:32 Not Given (Duplicate Order): Aspirin Delayed Release Tablet 81 mg PO once sd1 16:34 Drug: Aspirin 81 mg [aspirin 81 mg chewable tablet (1 tabs)] Route: PO; kr3 17:09 Drug: ketorolac 30 mg [ketorolac 30 mg/mL (1 mL) injection solution (1 mL)] Route: IVP; kr3 Site: right forearm; 18:04 Follow up: Response: Pain is resolved kr3 Signatures: Dispatcher [employer] EDAnita Nick MD MD sd1 Shannan Bullock, Grocery Worker Unit deg Ricky Echevarria RN RN dwg Deisy Gunn, Reg Reg gb Jasmyne Christine RN RN kr3 Fabio Rosales, DO cs11 Ingrid FriedmanRN RN Edyta Amor, Reg Reg ks16 The chart was reviewed and I authenticate all verbal orders and agree with the evaluation and treatment provided.Attachments: 17:58 [facility] Payment Agreement [email or web address] 11/04 09:29 T-Sheet-- Draft Copy gb 09:30 ECG/EKG gb Chart Complete MTDD
== END 2016-11-03 22:52 | disposition home or self-care (01) ==
LOC: M ED 15:47
DX: R07.9 Chest pain, unspecified (principal)
CPT/HCPCS: 36415; 71010; 80048; 82550; 82553; 85025; 85379; 93005; 93041; 96374; 99285; J1885

== ENCOUNTER 2017-03-01 23:25 | Emergency (ER) | payer OTHER ==
[~2017-03-01] VITALS: Ht 203.2 cm; Wt 122.5 kg
[2017-03-01] MEDS ORDERED: ASPI81TA85 PO (23:31)
[2017-03-02 00:30] LABS: BASO % 0.4 % (0.0-1.0); EOS # 0.2 K/mm3 (0.0-0.50); EOS % 3.4 % (0.0-3.0); LARGE UNSTAINED CELL # 0.3 K/mm3 (0.0-0.4); LARGE UNSTAINED CELL % 4.4 % (0.0-4.0); LYMPH # 2.2 K/mm3 (1.5-4.5); LYMPH % 36.8 % (24.0-44.0); MEAN CORPUSCULAR HEMOGLOBIN 31.1 pg (27.0-33.0); MEAN CORPUSCULAR HGB CONC 34.4 g/dl (32.0-36.5); MEAN CORPUSCULAR VOLUME 90.2 fl (80.0-96.0); MONO # 0.4 K/mm3 (0.0-0.8); MONO % 5.9 % (0.0-5.0); NEUTROPHILS % 49.2 % (36.0-66.0); PLATELET COUNT, AUTOMATED 170 k/mm3 (150-450); RED CELL DISTRIBUTION WIDTH 12.8 % (11.5-14.5); WHITE BLOOD COUNT 6.1 K/mm3 (4.0-10.0)
[2017-03-02 00:40] LABS: ALBUMIN 3.6 GM/DL (3.2-5.2); ALBUMIN/GLOBULIN RATIO 1.16 (1.00-1.93); ALKALINE PHOSPHATASE 128 U/L (45-117); ALT/SGPT 29 U/L (12-78); ANION GAP 4 MEQ/L (8-16); AST/SGOT 13 U/L (15-37); BILIRUBIN,TOTAL 1.3 MG/DL (0.2-1.0); BLOOD UREA NITROGEN 25 MG/DL (7-18); CALCIUM LEVEL 7.9 MG/DL (8.5-10.1); CARBON DIOXIDE LEVEL 29 MEQ/L (21-32); CHLORIDE LEVEL 109 MEQ/L (98-107); CREATININE FOR GFR 1.36 MG/DL (0.70-1.30); GLOMERULAR FILTRATION RATE > 60.0 (>60); GLUCOSE, FASTING 80 MG/DL (70-105); POTASSIUM SERUM 3.7 MEQ/L (3.5-5.1); SODIUM LEVEL 142 MEQ/L (136-145); TOTAL PROTEIN 6.7 GM/DL (6.4-8.2)
[2017-03-02 01:38] LABS: MAGNESIUM LEVEL 2.4 MG/DL (1.8-2.4)
[2017-03-02 02:58] VITALS: BP 134/87
--- NOTE | 2017-03-02 08:13 | ECGEPIP ---
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
== END 2017-03-02 03:00 | disposition home or self-care (01) ==
LOC: M ED 23:25
DX: R00.2 Palpitations (principal)

== ENCOUNTER 2017-03-17 04:50 | Emergency (ER) | payer OTHER ==
[~2017-03-17] VITALS: Ht 203.2 cm; Wt 122.5 kg
[~2017-03-17 04:50] MED LIST changes: +ASPI81TA85 PO
[2017-03-17] MEDS ORDERED: HYDR-4274 PO (08:10)
[2017-03-17 08:19] VITALS: BP 132/85
--- NOTE | 2017-03-17 12:02 | ECGEPIP ---
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 Order Number: [id number] Reading MD: Anita Sage Measurements Intervals [place] Rate: 55 P: 41 [place]: 175 QRS: 76 QRSD: 98 T: 62 QT: 462 QTc: 443 Interpretive Statements SINUS BRADYCARDIA NSTTW ABNORMALITY DECREASED RATE 03/01/17 Electronically Signed On 03-17-2017 12:01:42 EDT by Anita Sage
== END 2017-03-17 08:21 | disposition home or self-care (01) ==
LOC: M ED 05:39
DX: F41.1 Generalized anxiety disorder (principal); F41.0 Panic disorder [episodic paroxysmal anxiety]; R00.1 Bradycardia, unspecified; J45.909 Unspecified asthma, uncomplicated

== ENCOUNTER 2017-05-19 15:37 | Emergency (ER) | payer OTHER ==
[~2017-05-19] VITALS: Ht 203.2 cm; Wt 125.0 kg
[~2017-05-19 15:37] MED LIST changes: +HYDR50TA70 PO; -PROA1AER INH; +PROAAER10 INH; +TRAZ-136 PO; -TRAZ100T4 PO
[2017-05-19] MEDS ORDERED: NITROGLYCERIN 0.4 MG SUBL TABLET SL PRN (16:30)
[2017-05-19] MEDS ORDERED: ASPIRIN 81 MG CHEW TABLET PO ONE (16:30)
[2017-05-19 16:46] LABS: BASO % 0.3 % (0.0-1.0); EOS % 0.6 % (0.0-3.0); LARGE UNSTAINED CELL # 0.2 K/mm3 (0.0-0.4); LARGE UNSTAINED CELL % 2.4 % (0.0-4.0); LYMPH # 2.1 K/mm3 (1.5-4.5); LYMPH % 24.8 % (24.0-44.0); MEAN CORPUSCULAR HEMOGLOBIN 31.2 pg (27.0-33.0); MEAN CORPUSCULAR HGB CONC 34.2 g/dl (32.0-36.5); MEAN CORPUSCULAR VOLUME 91.2 fl (80.0-96.0); MONO # 0.4 K/mm3 (0.0-0.8); MONO % 5.1 % (0.0-5.0); NEUTROPHILS # 5.1 K/mm3 (1.8-7.7); NEUTROPHILS % 66.8 % (36.0-66.0); PLATELET COUNT, AUTOMATED 166 k/mm3 (150-450); RED CELL DISTRIBUTION WIDTH 12.7 % (11.5-14.5); WHITE BLOOD COUNT 7.6 K/mm3 (4.0-10.0)
[2017-05-19 16:54] LABS: ANION GAP 8 MEQ/L (8-16); BLOOD UREA NITROGEN 20 MG/DL (7-18); CALCIUM LEVEL 8.1 MG/DL (8.5-10.1); CARBON DIOXIDE LEVEL 28 MEQ/L (21-32); CHLORIDE LEVEL 108 MEQ/L (98-107); CREATININE FOR GFR 1.23 MG/DL (0.70-1.30); GLOMERULAR FILTRATION RATE > 60.0 (>60); GLUCOSE, FASTING 111 MG/DL (70-105); POTASSIUM SERUM 3.9 MEQ/L (3.5-5.1); SODIUM LEVEL 144 MEQ/L (136-145)
--- NOTE | 2017-05-19 17:42 | REP ---
HISTORY: Chest pain. COMPARISON: Multiple, the latest 11/03/2016 FINDINGS: The superior mediastinal structures are midline. The cardiac silhouette is unremarkable in size, shape and position. The diaphragmatic surfaces of the lungs are regular and the costophrenic angles are clear. The pulmonary cormier are clear. The imaged osseous structures are intact. IMPRESSION: There is no acute cardiopulmonary disease. No significant change from the prior exam. Signed by Crispin López DO 05/22/2017 03:24 P
--- NOTE | 2017-05-19 19:59 | ECGEPIP ---
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
[2017-05-19 23:06] VITALS: BP 138/62
--- NOTE | 2017-05-20 07:19 | ECGEPIP ---
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
== END 2017-05-19 23:07 | disposition home or self-care (01) ==
LOC: M ED 15:37
DX: R07.9 Chest pain, unspecified (principal); I10 Essential (primary) hypertension; J45.909 Unspecified asthma, uncomplicated; K21.9 Gastro-esophageal reflux disease without esophagitis; M48.00 Spinal stenosis, site unspecified; G25.81 Restless legs syndrome; Z82.49 Family history of ischemic heart disease and other diseases of the circulatory system

== ENCOUNTER 2017-08-24 11:44 | Emergency (ER) | payer OTHER, SELFPAY ==
[~2017-08-24] VITALS: Ht 203.2 cm; Wt 122.7 kg
[2017-08-24 11:45] VITALS: BP 142/86
[2017-08-24] MEDS ORDERED: ASPI1TAB PO (11:51)
[2017-08-24] MEDS ORDERED: HYDR-3363 PO (11:51)
== END 2017-08-24 12:59 | disposition home or self-care (01) ==
LOC: M ED 11:44
DX: B34.9 Viral infection, unspecified (principal); J45.909 Unspecified asthma, uncomplicated; M48.00 Spinal stenosis, site unspecified; Z79.82 Long term (current) use of aspirin; Z87.442 Personal history of urinary calculi; Z86.79 Personal history of other diseases of the circulatory system

== ENCOUNTER 2017-09-21 08:57 | Emergency (ER) | payer OTHER, SELFPAY ==
[~2017-09-21] VITALS: Ht 203.2 cm; Wt 122.7 kg
[~2017-09-21 08:57] MED LIST changes: +ASPI1TAB PO; +HYDR-3363 PO
[2017-09-21 08:58] VITALS: BP 134/85
[2017-09-21] MEDS ORDERED: ZOFR4TAB3 PO (10:11)
[2017-09-21] MEDS ORDERED: ONDANSETRON 4 MG ORAL DISINTEGRATING TAB (S0181) PO ONE (10:15)
== END 2017-09-21 10:26 | disposition home or self-care (01) ==
LOC: M ED 08:57
DX: A08.4 Viral intestinal infection, unspecified (principal); J45.909 Unspecified asthma, uncomplicated; F41.9 Anxiety disorder, unspecified; F33.9 Major depressive disorder, recurrent, unspecified; Z79.899 Other long term (current) drug therapy; Z79.82 Long term (current) use of aspirin; Z87.448 Personal history of other diseases of urinary system

== ENCOUNTER 2017-10-13 06:51 | Emergency (ER) | payer SELFPAY, OTHER ==
[2017-10-13] MEDS: ONDANSETRON 4MG/2ML VIAL (J2405) IV (07:39)
[2017-10-13] MEDS: NS 1,000 ML IV (07:39)
[2017-10-13 07:44] LABS: BASO % 0.2 % (0.0-1.0); EOS # 0.1 10^3/uL (0.0-0.50); EOS % 2.2 % (0.0-3.0); HEMATOCRIT 41.1 % (42.0-52.0); HEMOGLOBIN 14.3 g/dl (14.0-18.0); IMMATURE GRANULOCYTE % 0.3 % (0-0); LYMPH # 1.8 10^3/uL (1.5-4.5); LYMPH % 30.1 % (24.0-44.0); MEAN CORPUSCULAR HEMOGLOBIN 30.1 pg (27.0-33.0); MEAN CORPUSCULAR HGB CONC 34.8 g/dl (32.0-36.5); MEAN CORPUSCULAR VOLUME 86.5 fl (80.0-96.0); MONO # 0.5 10^3/uL (0.0-0.8); MONO % 9.1 % (0.0-5.0); NEUTROPHILS # 3.4 10^3/uL (1.8-7.7); NEUTROPHILS % 58.1 % (36.0-66.0); PLATELET COUNT, AUTOMATED 182 10^3/uL (150-450); RED BLOOD COUNT 4.75 10^6/uL (4.30-6.10); RED CELL DISTRIBUTION WIDTH 12.3 % (11.5-14.5); WHITE BLOOD COUNT 5.9 10^3/uL (4.0-10.0)
[2017-10-13] MEDS ORDERED: NS 1,000 ML IV (07:45)
[2017-10-13 08:09] LABS: ALBUMIN 3.9 GM/DL (3.2-5.2); ALBUMIN/GLOBULIN RATIO 1.44 (1.00-1.93); ALKALINE PHOSPHATASE 113 U/L (45-117); ALT/SGPT 24 U/L (12-78); ANION GAP 3 MEQ/L (8-16); AST/SGOT 14 U/L (7-37); BILIRUBIN,DIRECT 0.2 MG/DL (0.0-0.2); BILIRUBIN,TOTAL 1.2 MG/DL (0.2-1.0); BLOOD UREA NITROGEN 18 MG/DL (7-18); CARBON DIOXIDE LEVEL 30 MEQ/L (21-32); CHLORIDE LEVEL 110 MEQ/L (98-107); CREATININE FOR GFR 1.19 MG/DL (0.70-1.30); GLOMERULAR FILTRATION RATE > 60.0 (>60); GLUCOSE, FASTING 85 MG/DL (70-105); LIPASE 213 U/L (73-393); POTASSIUM SERUM 3.7 MEQ/L (3.5-5.1); SODIUM LEVEL 143 MEQ/L (136-145); TOTAL PROTEIN 6.6 GM/DL (6.4-8.2)
== END 2017-10-13 09:06 | disposition home or self-care (01) ==
LOC: M ED 06:51
DX: R11.10 Vomiting, unspecified (principal); R19.7 Diarrhea, unspecified; R10.9 Unspecified abdominal pain; M48.00 Spinal stenosis, site unspecified; F41.9 Anxiety disorder, unspecified; F33.9 Major depressive disorder, recurrent, unspecified; Z79.899 Other long term (current) drug therapy; Z79.82 Long term (current) use of aspirin; Z87.442 Personal history of urinary calculi
CPT/HCPCS: J2405

== ENCOUNTER 2017-11-08 10:45 | Emergency (ER) | payer SELFPAY | END 2017-11-08 12:12 | disposition home or self-care (01) | LOC: M ED 10:45 | DX: J20.9 Acute bronchitis, unspecified (principal); J06.9 Acute upper respiratory infection, unspecified; B34.9 Viral infection, unspecified | CPT/HCPCS: 99283 ==

== ENCOUNTER 2017-12-29 05:29 | Emergency (ER) | payer SELFPAY ==
[2017-12-29 06:19] LABS: BASO % 0.3 % (0.0-1.0); EOS # 0.2 10^3/uL (0.0-0.50); EOS % 2.4 % (0.0-3.0); HEMATOCRIT 41.7 % (42.0-52.0); HEMOGLOBIN 14.5 g/dl (14.0-18.0); IMMATURE GRANULOCYTE % 0.4 % (0-3.0); LYMPH # 1.7 10^3/uL (1.5-4.5); MEAN CORPUSCULAR HEMOGLOBIN 30.2 pg (27.0-33.0); MEAN CORPUSCULAR HGB CONC 34.8 g/dl (32.0-36.5); MEAN CORPUSCULAR VOLUME 86.9 fl (80.0-96.0); MONO # 0.7 10^3/uL (0.0-0.8); MONO % 9.5 % (0.0-5.0); NEUTROPHILS % 65.4 % (36.0-66.0); PLATELET COUNT, AUTOMATED 168 10^3/uL (150-450); RED CELL DISTRIBUTION WIDTH 12.7 % (11.5-14.5); WHITE BLOOD COUNT 7.6 10^3/uL (4.0-10.0)
[2017-12-29 06:28] LABS: ALBUMIN 3.9 GM/DL (3.2-5.2); ALBUMIN/GLOBULIN RATIO 1.34 (1.00-1.93); ALKALINE PHOSPHATASE 105 U/L (45-117); ALT/SGPT 36 U/L (12-78); AMYLASE 66 U/L (25-115); ANION GAP 7 MEQ/L (8-16); AST/SGOT 14 U/L (7-37); BILIRUBIN,DIRECT 0.4 MG/DL (0.0-0.2); BILIRUBIN,TOTAL 1.8 MG/DL (0.2-1.0); BLOOD UREA NITROGEN 19 MG/DL (7-18); C REACTIVE PROTEIN QUANTITATIV < 0.30 MG/DL (0.00-0.30); CALCIUM LEVEL 7.7 MG/DL (8.5-10.1); CARBON DIOXIDE LEVEL 27 MEQ/L (21-32); CHLORIDE LEVEL 108 MEQ/L (98-107); CREATININE FOR GFR 1.16 MG/DL (0.70-1.30); GLOMERULAR FILTRATION RATE > 60.0 (>60); GLUCOSE, FASTING 97 MG/DL (70-100); LIPASE 141 U/L (73-393); SODIUM LEVEL 142 MEQ/L (136-145); TOTAL PROTEIN 6.8 GM/DL (6.4-8.2)
[2017-12-29] MEDS: NS 1,000 ML IV (06:38)
[2017-12-29] MEDS: METOCLOPRAMIDE INJ 10MG/2ML VIAL (J2765) IV (06:39)
[2017-12-29 07:28] LABS: APPEARANCE, URINE CLEAR (CLEAR); BACTERIA, URINE AUTO NEGATIVE (NEGATIVE); BILIRUBIN, URINE AUTO NEGATIVE (NEGATIVE); BLOOD, URINE BLOOD NEGATIVE (NEGATIVE); COLOR, URINE YELLOW (YELLOW); GLUCOSE, URINE (UA) AUTO NEGATIVE (NEGATIVE); KETONE, URINE AUTO NEGATIVE (NEGATIVE); LEUKOCYTE ESTERASE, URINE AUTO NEGATIVE (NEGATIVE); MUCUS, URINE SMALL (NEGATIVE); NITRITE, URINE AUTO NEGATIVE (NEGATIVE); PROTEIN, URINE AUTO NEGATIVE (NEGATIVE); RBC, URINE AUTO 2 /HPF (0-3); SPECIFIC GRAVITY URINE AUTO 1.027 (1.002-1.035); SQUAMOUS EPITHELIAL CELL UR AU 0 /HPF (0-6); UROBILINOGEN, URINE AUTO 0.2 mg/dL (0.0-2.0); WBC, URINE AUTO 0 /HPF (0-3)
== END 2017-12-29 07:58 | disposition home or self-care (01) ==
LOC: M ED 05:29
DX: R11.2 Nausea with vomiting, unspecified (principal); R19.7 Diarrhea, unspecified; J02.9 Acute pharyngitis, unspecified; J45.909 Unspecified asthma, uncomplicated; M48.00 Spinal stenosis, site unspecified; F41.9 Anxiety disorder, unspecified; F33.9 Major depressive disorder, recurrent, unspecified; Z87.442 Personal history of urinary calculi
CPT/HCPCS: J2765

== ENCOUNTER 2018-01-13 09:16 | Emergency (ER) | payer SELFPAY ==
[2018-01-13] MEDS: ONDANSETRON 4 MG ORAL DISINTEGRATING TAB (S0181) PO (09:44)
== END 2018-01-13 10:25 | disposition home or self-care (01) ==
LOC: M ED 09:16
DX: K52.9 Noninfective gastroenteritis and colitis, unspecified (principal); J32.9 Chronic sinusitis, unspecified; J45.909 Unspecified asthma, uncomplicated; F33.9 Major depressive disorder, recurrent, unspecified; F41.9 Anxiety disorder, unspecified; M48.00 Spinal stenosis, site unspecified; Z79.82 Long term (current) use of aspirin
CPT/HCPCS: 87880

== ENCOUNTER 2018-05-02 09:37 | Emergency (ER) | payer MEDICAID, SELFPAY ==
[2018-05-02] MEDS: ASPIRIN 81 MG CHEW TABLET PO ×2 (09:59)
[2018-05-02] MEDS ORDERED: ASPIRIN 81 MG CHEW TABLET PO ×2 (10:00)
[2018-05-02 10:05] LABS: BASO % 0.1 % (0.0-1.0); EOS # 0.1 10^3/uL (0.0-0.50); EOS % 0.9 % (0.0-3.0); HEMATOCRIT 42.9 % (42.0-52.0); HEMOGLOBIN 14.6 g/dl (13.5-17.5); IMMATURE GRANULOCYTE % 0.4 % (0-3.0); LYMPH # 1.6 10^3/uL (1.5-4.5); MEAN CORPUSCULAR HEMOGLOBIN 30.4 pg (27.0-33.0); MEAN CORPUSCULAR VOLUME 89.4 fl (80.0-96.0); MONO # 0.6 10^3/uL (0.0-0.8); MONO % 7.1 % (0.0-5.0); NEUTROPHILS # 5.6 10^3/uL (1.8-7.7); NEUTROPHILS % 71.5 % (36.0-66.0); PLATELET COUNT, AUTOMATED 197 10^3/uL (150-450); RED CELL DISTRIBUTION WIDTH 12.3 % (11.5-14.5); WHITE BLOOD COUNT 7.8 10^3/uL (4.0-10.0)
[2018-05-02 10:13] LABS: INR 0.97
[2018-05-02] MEDS: LORazepam 2 MG TAB PO ×2 (10:14)
[2018-05-02 10:38] LABS: ALBUMIN 3.9 GM/DL (3.2-5.2); ALBUMIN/GLOBULIN RATIO 1.22 (1.00-1.93); ALKALINE PHOSPHATASE 101 U/L (45-117); ALT/SGPT 22 U/L (12-78); ANION GAP 7 MEQ/L (8-16); AST/SGOT 10 U/L (7-37); BILIRUBIN,DIRECT 0.3 MG/DL (0.0-0.2); BILIRUBIN,TOTAL 1.8 MG/DL (0.2-1.0); BLOOD UREA NITROGEN 13 MG/DL (7-18); CALCIUM LEVEL 7.8 MG/DL (8.5-10.1); CARBON DIOXIDE LEVEL 27 MEQ/L (21-32); CHLORIDE LEVEL 108 MEQ/L (98-107); CPK CREATINE PHOSPHOKINASE 166 U/L (39-308); CREATININE FOR GFR 1.26 MG/DL (0.70-1.30); GLOMERULAR FILTRATION RATE > 60.0 (>60); GLUCOSE, FASTING 96 MG/DL (70-100); POTASSIUM SERUM 3.5 MEQ/L (3.5-5.1); SODIUM LEVEL 142 MEQ/L (136-145); TOTAL PROTEIN 7.1 GM/DL (6.4-8.2); TROPONIN I < 0.02 NG/ML (< 0.10)
[2018-05-02 10:44] LABS: CK-MB VALUE MASS < 1.0 NG/ML (<3.6); NT-PRO BNP 59 PG/ML (<125)
[2018-05-02 11:20] LABS: AMPHETAMINES LEVEL URINE NEGATIVE (NEGATIVE); BARBITURATES URINE NEGATIVE (NEGATIVE); BENZODIAZEPINES URINE NEGATIVE (NEGATIVE); CANNABINOIDS URINE NEGATIVE (NEGATIVE); COCAINE METABOLITE URINE NEGATIVE (NEGATIVE); METHADONE URINE NEGATIVE (NEGATIVE); OPIATES URINE NEGATIVE (NEGATIVE); PHENCYCLIDINE URINE NEGATIVE (NEGATIVE)
== END 2018-05-02 13:07 | disposition home or self-care (01) ==
LOC: M ED 09:37
DX: R07.9 Chest pain, unspecified (principal)
CPT/HCPCS: 71045

== ENCOUNTER 2018-05-11 07:46 | Emergency (ER) | payer OTHER, SELFPAY, MEDICAID ==
[2018-05-11] MEDS: methylPREDNISolone INJ 125 MG/2 ML VIAL (J2930) IM ×2 (08:45)
[2018-05-11] MEDS: KETOROLAC 60 MG/2 ML VIAL (J1885) IM ×2 (08:46)
== END 2018-05-11 09:15 | disposition home or self-care (01) ==
LOC: M ED 07:46
DX: M62.830 Muscle spasm of back (principal); X50.0XXA Overexertion from strenuous movement or load, initial encounter; Y92.89 Other specified places as the place of occurrence of the external cause; M48.00 Spinal stenosis, site unspecified; J45.909 Unspecified asthma, uncomplicated; F41.9 Anxiety disorder, unspecified; F32.9 Major depressive disorder, single episode, unspecified; Z87.442 Personal history of urinary calculi
CPT/HCPCS: J1885

== ENCOUNTER → 2018-08-06 | Outpatient (CLI) | payer OTHER ==
[2018-08-06 11:27] LABS: CHOLESTEROL LEVEL 127 MG/DL (<200); CHOLESTEROL RISK RATIO 2.591 (<5); HDL CHOLESTEROL 49 MG/DL (>40); LDL CHOLESTEROL 65 MG/DL (<100); NON-HDL-C 78 MG/DL; TRIGLYCERIDES LEVEL 64 MG/DL (<150)
== END ==
LOC: M LAB 10:08
DX: R07.2 Precordial pain (principal)
CPT/HCPCS: 80061

== ENCOUNTER 2018-08-15 20:03 | Emergency (ER) | payer OTHER ==
[2018-08-15] MEDS: AUGMENTIN 875 MG TAB PO (21:45)
== END 2018-08-15 22:14 | disposition home or self-care (01) ==
LOC: M ED 20:03
DX: R59.1 Generalized enlarged lymph nodes (principal); F41.9 Anxiety disorder, unspecified; Z79.899 Other long term (current) drug therapy
CPT/HCPCS: 99283

== ENCOUNTER 2018-10-10 04:57 | Emergency (ER) | payer OTHER ==
[~2018-10-10] VITALS: Ht 203.2 cm; Wt 109.1 kg
[~2018-10-10 04:57] MED LIST changes: +AUGM875T28 PO; +FLON1SPR; +IBUP-1022 PO; +PRED20TA PO; +SUDA1TAB3 PO; +TESS100C PO; -TRAZ-136 PO; +TRAZ-163 PO; +ZOFR4TAB14 PO
[2018-10-10 05:53] LABS: BASO % 0.3 % (0.0-1.0); EOS # 0.2 10^3/uL (0.0-0.50); EOS % 2.4 % (0.0-3.0); HEMATOCRIT 42.9 % (42.0-52.0); HEMOGLOBIN 14.5 g/dl (13.5-17.5); LYMPH # 2.2 10^3/uL (1.5-4.5); MEAN CORPUSCULAR HEMOGLOBIN 29.8 pg (27.0-33.0); MEAN CORPUSCULAR HGB CONC 33.8 g/dl (32.0-36.5); MEAN CORPUSCULAR VOLUME 88.1 fl (80.0-96.0); MONO # 0.6 10^3/uL (0.0-0.8); MONO % 9.6 % (0.0-5.0); NEUTROPHILS # 3.6 10^3/uL (1.8-7.7); NEUTROPHILS % 54.5 % (36.0-66.0); PLATELET COUNT, AUTOMATED 186 10^3/uL (150-450); RED BLOOD COUNT 4.87 10^6/uL (4.30-6.10); WHITE BLOOD COUNT 6.6 10^3/uL (4.0-10.0)
[2018-10-10 06:16] LABS: ALBUMIN 3.9 GM/DL (3.2-5.2); ALT/SGPT 22 U/L (12-78); BILIRUBIN,DIRECT 0.3 MG/DL (0.0-0.2); BILIRUBIN,TOTAL 1.2 MG/DL (0.2-1.0); BLOOD UREA NITROGEN 21 MG/DL (7-18); CALCIUM LEVEL 8.1 MG/DL (8.5-10.1); CARBON DIOXIDE LEVEL 29 MEQ/L (21-32); CHLORIDE LEVEL 108 MEQ/L (98-107); CREATININE FOR GFR 1.35 MG/DL (0.70-1.30); GLOMERULAR FILTRATION RATE > 60.0 (>60); GLUCOSE, FASTING 100 MG/DL (70-100); LIPASE 151 U/L (73-393); POTASSIUM SERUM 3.9 MEQ/L (3.5-5.1); SODIUM LEVEL 142 MEQ/L (136-145); TOTAL PROTEIN 6.9 GM/DL (6.4-8.2)
[2018-10-10] MEDS ORDERED: MORPHINE 4 MG/ML 1ML VIAL/SYRINGE (J2270) IV ONE (06:30)
[2018-10-10] MEDS ORDERED: ONDANSETRON 4MG/2ML VIAL (J2405) IV ONE (06:30)
--- NOTE | 2018-10-10 06:52 | REPVR ---
EXAM: CT Abdomen and Pelvis Without Contrast EXAM DATE/TIME: 10/10/2018 6:24 AM CLINICAL HISTORY: 43 years old, male; Pain; Abdominal pain; Flank; Right; Additional info: Right flank pain; HX kidney stones TECHNIQUE: Axial computed tomography images of the abdomen and pelvis without contrast. All CT scans at this facility use at least one of these dose optimization techniques: automated exposure control; mA and/or kV adjustment per patient size (includes targeted exams where dose is matched to clinical indication); or iterative reconstruction. Coronal and sagittal reformatted images were created and reviewed. COMPARISON: CT ABD PELVIS W/O CONTRAST 09/17/2015 11:27 AM FINDINGS: Lower thorax: There is severe emphysema in the lingula/inferior left upper lobe. Paraseptal emphysematous changes seen in the lung bases. There is a small sliding hiatal hernia. ABDOMEN: Liver: Normal. No mass. Gallbladder and bile ducts: Normal. No calcified stones. No ductal dilation. Pancreas: Normal. No ductal dilation. Spleen: Normal. No splenomegaly. Adrenals: Normal. No mass. Kidneys and ureters: There is a 7mm stone in the proximal right ureter with moderate right-sided hydronephrosis. Stomach and bowel: There is questionable thickening of the rectum (axial image 134) Appendix: No evidence of appendicitis. PELVIS: Bladder: Unremarkable as visualized. Reproductive: Unremarkable as visualized. ABDOMEN and PELVIS: Intraperitoneal space: Normal. No free air. No significant fluid collection. Bones/joints: There is L5 S1 disc degenerative changes. Soft tissues: Unremarkable. Vasculature: Normal. No abdominal aortic aneurysm. Lymph nodes: Normal. No enlarged lymph nodes. IMPRESSION: 1. 7 mm proximal right ureteral obstructing stone with moderate proximal hydronephrosis. 2. Small sliding hiatal hernia. 3. Apparent thickening of the rectum. Correlate clinically and with physical exam for rectal pathology. 4. Severe emphysematous changes and a partially imaged inferior left upper lobe/lingula in addition paraseptal emphysema in the partially imaged lower lobes. Electronically signed by: Andrew Mtz On 10/10/2018 06:51:57 AM
[2018-10-10] MEDS ORDERED: KETOROLAC 30 MG/ML VIAL (J1885) IV ONE (07:00)
[2018-10-10] MEDS ORDERED: METOCLOPRAMIDE INJ 10MG/2ML VIAL (J2765) IV ONE (07:15)
[2018-10-10] MEDS ORDERED: FLOM0.4C39 PO (08:14)
[2018-10-10] MEDS ORDERED: NORCOTAB PO (08:14)
[2018-10-10] MEDS ORDERED: KETO10TAB PO (08:14)
[2018-10-10] MEDS ORDERED: ZOFR4TAB14 PO (08:14)
[2018-10-10 08:28] VITALS: BP 130/74
--- NOTE | 2018-10-16 12:27 | ED PDOC ---
Post-Departure Follow-Up dr jose armando shrestha faxed formal report of ct abd/p for fu Dona Bnod MD Oct 16, 2018 12:27
== END 2018-10-10 08:33 | disposition home or self-care (01) ==
LOC: M ED 04:57
DX: N20.1 Calculus of ureter (principal); N13.39 Other hydronephrosis; R11.2 Nausea with vomiting, unspecified; J45.909 Unspecified asthma, uncomplicated; M48.00 Spinal stenosis, site unspecified; G43.909 Migraine, unspecified, not intractable, without status migrainosus; K21.9 Gastro-esophageal reflux disease without esophagitis; F41.9 Anxiety disorder, unspecified; F32.9 Major depressive disorder, single episode, unspecified; Z87.442 Personal history of urinary calculi
CPT/HCPCS: 74176; 80048; 80076; 83690; 85025; 96374; 96375; 99284; J1885; J2270; J2405; J2765

== ENCOUNTER 2018-10-21 08:41 | Emergency (ER) | payer OTHER ==
[~2018-10-21] VITALS: Ht 203.2 cm; Wt 109.1 kg
[~2018-10-21 08:41] MED LIST changes: +FLOM0.4C39 PO; +KETO10TAB PO; +NORCOTAB PO
[2018-10-21] MEDS ORDERED: ASPI81TA85 PO (08:47)
[2018-10-21 09:41] LABS: BASO % 0.1 % (0.0-1.0); EOS # 0.1 10^3/uL (0.0-0.50); HEMATOCRIT 42.1 % (42.0-52.0); HEMOGLOBIN 14.2 g/dl (13.5-17.5); LYMPH # 1.4 10^3/uL (1.5-4.5); LYMPH % 17.9 % (24.0-44.0); MEAN CORPUSCULAR HEMOGLOBIN 29.9 pg (27.0-33.0); MEAN CORPUSCULAR HGB CONC 33.7 g/dl (32.0-36.5); MEAN CORPUSCULAR VOLUME 88.6 fl (80.0-96.0); MONO % 11.9 % (0.0-5.0); NEUTROPHILS # 5.5 10^3/uL (1.8-7.7); NEUTROPHILS % 68.6 % (36.0-66.0); PLATELET COUNT, AUTOMATED 175 10^3/uL (150-450); RED BLOOD COUNT 4.75 10^6/uL (4.30-6.10)
--- NOTE | 2018-10-21 10:00 | REP ---
CT abdomen and pelvis without IV or oral contrast: History: Flank pain. Comparison CT study October 10, 2018. The recent prior CT study showed a 7 mm obstructing calculus in the right proximal ureter. 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 The lung bases remain clear. No hepatic or splenic abnormality is seen. The adrenals and gallbladder are unremarkable. No pancreatic abnormality is seen. There is no evidence of intrarenal calculus on either side. There is moderate right-sided hydronephrosis again noted. There is periureteral and elizabeth renal fat stranding. Right-sided hydroureter is seen and can be traced today to the central pelvis where the previously noted 7 mm calculus is seen in the distal ureter, several centimeters above the ureterovesical junction. No bladder calculus is seen. No left-sided hydronephrosis or left urinary calculus is seen. A normal appendix is seen. A few dystrophic calcifications are seen in the prostate as before. No abdominal wall defect is seen. Impression: Moderate hydronephrosis is again seen. The previously noted 7 mm right proximal ureteral calculus is now in the distal right ureter, several centimeters above the uretero-vesicle junction. Electronically Signed by Max Molina MD 10/21/2018 09:51 A
[2018-10-21 10:04] LABS: CALCIUM LEVEL 8.2 MG/DL (8.5-10.1); CREATININE FOR GFR 1.99 MG/DL (0.70-1.30); GLOMERULAR FILTRATION RATE 39.1 (>60); POTASSIUM SERUM 4.3 MEQ/L (3.5-5.1)
[2018-10-21] MEDS ORDERED: TAMSULOSIN 0.4 MG CAP PO ONE (10:30)
[2018-10-21] MEDS ORDERED: NS 1,000 ML IV ONE (10:30)
[2018-10-21 12:41] VITALS: BP 128/92
== END 2018-10-21 12:41 | disposition home or self-care (01) ==
LOC: M ED 08:41
DX: N20.1 Calculus of ureter (principal); J45.909 Unspecified asthma, uncomplicated; F41.9 Anxiety disorder, unspecified; F33.9 Major depressive disorder, recurrent, unspecified; G43.909 Migraine, unspecified, not intractable, without status migrainosus; M48.00 Spinal stenosis, site unspecified; Z79.899 Other long term (current) drug therapy; Z79.82 Long term (current) use of aspirin

== ENCOUNTER 2018-11-11 06:50 | Day surgery (SDC) | payer OTHER ==
[~2018-11-11] VITALS: Ht 203.2 cm; Wt 100.5 kg
[2018-11-11] MEDS ORDERED: KETOROLAC 30 MG/ML VIAL (J1885) IV ONE (07:15)
[2018-11-11 07:40] LABS: BASO % 0.1 % (0.0-1.0); EOS # 0.1 10^3/uL (0.0-0.50); HEMATOCRIT 39.6 % (42.0-52.0); HEMOGLOBIN 13.8 g/dl (13.5-17.5); LYMPH # 1.1 10^3/uL (1.5-4.5); LYMPH % 13.9 % (24.0-44.0); MEAN CORPUSCULAR HEMOGLOBIN 30.1 pg (27.0-33.0); MEAN CORPUSCULAR HGB CONC 34.8 g/dl (32.0-36.5); MEAN CORPUSCULAR VOLUME 86.5 fl (80.0-96.0); MONO # 0.8 10^3/uL (0.0-0.8); NEUTROPHILS # 6.1 10^3/uL (1.8-7.7); NEUTROPHILS % 74.6 % (36.0-66.0); PLATELET COUNT, AUTOMATED 157 10^3/uL (150-450); RED BLOOD COUNT 4.58 10^6/uL (4.30-6.10); WHITE BLOOD COUNT 8.1 10^3/uL (4.0-10.0)
[2018-11-11 08:05] LABS: CALCIUM LEVEL 7.7 MG/DL (8.5-10.1); CREATININE FOR GFR 2.05 MG/DL (0.70-1.30); GLOMERULAR FILTRATION RATE 37.7 (>60); POTASSIUM SERUM 4.4 MEQ/L (3.5-5.1)
--- NOTE | 2018-11-11 08:54 | REP ---
Clinical: Right flank pain. Technique: Axial noncontrast images from the lung bases to the pubic symphysis with coronal and sagittal re-formations. Findings: Mild/moderate acute right-sided obstructive uropathy with edematous enlargement to the kidney, perinephric and periureteral stranding, and hydroureteronephrosis with 8 mm obstructing calculus at the distal ureter / ureterovesicle junction (images 127-129). Remainder of the urinary tract system is unremarkable. Liver, spleen, pancreas, gallbladder, and bilateral adrenal glands are normal. The enteric system is without obstruction or acute inflammatory process. Normal terminal ileum and appendix identified in the right lower quadrant. Pelvis demonstrates normal bladder and age appropriate prostate/seminal vesicles. Phleboliths noted in the pelvis. No ascites. No free air. No significant adenopathy. Abdominal aorta without aneurysm. Musculoskeletal structures demonstrate degenerative changes to the lumbosacral spine. Lung bases are clear. Impression: Moderate acute right-sided obstructive uropathy with 8 mm calculus in the distal right ureter approaching the ureterovesical junction. Electronically Signed by Karl Wright MD 11/11/2018 08:46 A
[2018-11-11] MEDS ORDERED: PIPERACILLIN/TAZOBACTAM SOD 3.375 GM in D5W MINI-BAG PLUS 50 ML IV ONE (09:45)
[2018-11-11] MEDS ORDERED: NS 1,000 ML IV ONE (10:00)
--- NOTE | 2018-11-11 10:00 | REP ---
Clinical: Nephrolithiasis. Technique: Two supine views of the abdomen and pelvis. Correlation: CT dated 11/11/2018 Findings: Evaluation of the urinary tract system is severely limited due to overlying bowel gas. Known calculus in the right ureterovesical junction identified in the right hanane pelvis. Further calcifications in the pelvis consistent with phleboliths. Bowel gas pattern is nonspecific. No organomegaly. Skeletal structures intact. Impression: Right UVJ stone consistent with findings on CT. Electronically Signed by Karl Wright MD 11/11/2018 09:52 A
[2018-11-11] MEDS ORDERED: HYDR-3713 PO (10:08)
[2018-11-11] MEDS ORDERED: HYDR50TA70 PO (10:10)
[2018-11-11] MEDS ORDERED: IBUP-1022 PO (10:10)
[2018-11-11] MEDS ORDERED: ONDA4TAB6 PO (10:11)
[2018-11-11] MEDS ORDERED: FLOM0.4C39 PO ×2 (10:12→13:14)
[2018-11-11] MEDS ORDERED: CONRAY-60 60% 50ML VIAL (Q9961) As Ordered ONE (10:54)
[2018-11-11] MEDS ORDERED: LIDOCAINE 2% 5ML JELLY UROJET As Ordered ONE (10:54)
[2018-11-11] MEDS ORDERED: fentaNYL 100 MCG/2 ML INJECTION (J3010) As Ordered ONE ×2 (11:19→12:03)
[2018-11-11] MEDS ORDERED: MIDAZOLAM INJ 2 MG/2 ML VIAL (J2250) As Ordered ONE (11:19)
[2018-11-11] MEDS ORDERED: PROPOFOL 200 MG/20 ML VIAL As Ordered ONE (11:19)
[2018-11-11] MEDS ORDERED: LIDOCAINE 2% INJ 100 MG/5 ML SDV (FOR ANES.) As Ordered ONE (11:19)
[2018-11-11] MEDS ORDERED: dexameTHASONE 4 MG/ML 1ML VIAL (J1100) As Ordered ONE (11:57)
[2018-11-11] MEDS ORDERED: ONDANSETRON 4MG/2ML VIAL (J2405) As Ordered ONE (11:57)
--- NOTE | 2018-11-11 12:51 | REP ---
Clinical: Right-sided obstructive uropathy. Technique: Intraoperative fluoroscopic imaging using portable C-arm technique. Findings: Five images from retrograde pyelogram study demonstrates satisfactory right ureteral stent placement. Total fluoroscopic time 13 seconds. Impression: Status post right ureteral stent placement. Electronically Signed by Karl Wright MD 11/11/2018 12:43 P
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
[2018-11-11] MEDS ORDERED: TYLE500T78 PO (13:14)
[2018-11-11] MEDS ORDERED: CIPR-249 PO (13:14)
[2018-11-11] MEDS ORDERED: PERCOCET 5MG/325MG TAB PO PRN (13:15)
[2018-11-11] MEDS ORDERED: fentaNYL 100 MCG/2 ML INJECTION (J3010) IV PRN (13:15)
[2018-11-11] MEDS ORDERED: ONDANSETRON 4MG/2ML VIAL (J2405) IV PRN (13:15)
[2018-11-11] MEDS ORDERED: LR 1,000 ML IV SCH (13:15)
[2018-11-11] MEDS ORDERED: ACID1CAP5 PO (13:16)
[2018-11-11] MEDS ORDERED: ZOFR4TAB16 PO (13:16)
[2018-11-11] MEDS ORDERED: MIRA3350 PO (13:16)
[2018-11-11] MEDS ORDERED: MAGN400C PO (13:18)
[2018-11-11] MEDS ORDERED: ACETAMINOPHEN TAB 650MG DOSE (2X325MG) As Ordered ONE (13:36)
--- NOTE | 2018-11-11 13:56 | REP ---
Clinical: Ureteral stent. Technique: Portable supine view of the abdomen. Findings: A right ureteral stent is identified in seemingly satisfactory position. Bowel gas pattern is nonspecific. Skeletal structures appear intact. Impression: Right ureteral stent. Electronically Signed by Karl Wright MD 11/11/2018 01:48 P
[2018-11-11 14:00] VITALS: BP 139/86
[2018-11-11] MEDS ORDERED: ACETAMINOPHEN TAB 650MG DOSE (2X325MG) PO ONE (14:15)
== END 2018-11-11 16:14 | disposition home or self-care (01) ==
LOC: M ED 06:50 → M SDC 10:57 → M MSPAV 13:53 → M SDC 16:14
PROVIDERS: ATTEND Urology Pediatric Urology
DX: N20.1 Calculus of ureter (principal); I10 Essential (primary) hypertension; M48.00 Spinal stenosis, site unspecified; M54.9 Dorsalgia, unspecified; F32.9 Major depressive disorder, single episode, unspecified; G47.00 Insomnia, unspecified; I20.9 Angina pectoris, unspecified; J45.909 Unspecified asthma, uncomplicated; Z86.59 Personal history of other mental and behavioral disorders
CPT/HCPCS: 52332; 74018; 74420; 80048; 81001; 82360; 85025; 88300; 99284; C1769; C2617; J1100; J1885; J2250; J2405; J2543; J3010; Q9961

== ENCOUNTER → 2018-11-19 | Outpatient (CLI) | payer OTHER ==
[~2018-11-19] MED LIST changes: +ACID1CAP5 PO; +CIPR-249 PO; +HYDR-3713 PO; +MAGN400C PO; +MIRA3350 PO; +ONDA4TAB6 PO; +TYLE500T78 PO; +ZOFR4TAB16 PO
--- NOTE | 2018-11-19 17:09 | REP ---
KUB, ONE VIEW: HISTORY: Chronic kidney disease. A small amount of air is present in the intestine. There are no air fluid levels or dilated loops of intestine. There is no pneumoperitoneum. Calcifications are present in the pelvis consistent with phleboliths. IMPRESSION:Nonspecific bowel gas pattern. Electronically Signed by Osito Becerra MD 11/20/2018 07:53 A
== END ==
LOC: M SMT 14:20
PROVIDERS: ATTEND Urology Pediatric Urology
DX: N18.9 Chronic kidney disease, unspecified (principal)

== ENCOUNTER 2018-12-12 08:10 | Emergency (ER) | payer OTHER ==
[~2018-12-12] VITALS: Ht 200.7 cm; Wt 109.1 kg
[2018-12-12] MEDS ORDERED: ASPI81TA85 PO (08:16)
[2018-12-12] MEDS ORDERED: LORazepam 2 MG TAB PO STA (08:24)
[2018-12-12] MEDS ORDERED: ASPIRIN 81 MG CHEW TABLET PO ONE (08:30)
[2018-12-12 08:41] LABS: BASO % 0.4 % (0.0-1.0); EOS # 0.1 10^3/uL (0.0-0.50); EOS % 2.3 % (0.0-3.0); HEMATOCRIT 41.4 % (42.0-52.0); HEMOGLOBIN 14.5 g/dl (13.5-17.5); LYMPH # 1.4 10^3/uL (1.5-4.5); LYMPH % 27.5 % (24.0-44.0); MEAN CORPUSCULAR HEMOGLOBIN 30.3 pg (27.0-33.0); MEAN CORPUSCULAR VOLUME 86.4 fl (80.0-96.0); MONO # 0.5 10^3/uL (0.0-0.8); MONO % 8.8 % (0.0-5.0); NEUTROPHILS # 3.1 10^3/uL (1.8-7.7); NEUTROPHILS % 60.6 % (36.0-66.0); PLATELET COUNT, AUTOMATED 182 10^3/uL (150-450); RED BLOOD COUNT 4.79 10^6/uL (4.30-6.10); WHITE BLOOD COUNT 5.1 10^3/uL (4.0-10.0)
[2018-12-12 08:53] LABS: INR 0.97
[2018-12-12 09:14] LABS: D-DIMER QUANT < 270 ng/ml (<500)
--- NOTE | 2018-12-12 09:37 | REP ---
CHEST, SINGLE VIEW: There is no evidence of acute infiltrate. No pleural effusion is seen. The heart is normal in size. The mediastinal silhouette is unremarkable. The visualized osseous structures are intact. IMPRESSION: No acute pulmonary disease. Electronically Signed by Ricky Armstrong MD 12/12/2018 08:32 P
--- NOTE | 2018-12-12 09:39 | ECGEPIP ---
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
[2018-12-12 10:03] LABS: ALBUMIN 3.8 GM/DL (3.2-5.2); ALT/SGPT 30 U/L (12-78); BILIRUBIN,DIRECT 0.3 MG/DL (0.0-0.2); BILIRUBIN,TOTAL 1.6 MG/DL (0.2-1.0); BLOOD UREA NITROGEN 20 MG/DL (7-18); CALCIUM LEVEL 8.1 MG/DL (8.5-10.1); CARBON DIOXIDE LEVEL 26 MEQ/L (21-32); CHLORIDE LEVEL 110 MEQ/L (98-107); CPK CREATINE PHOSPHOKINASE 1381 U/L (39-308); CREATININE FOR GFR 1.25 MG/DL (0.70-1.30); GLOMERULAR FILTRATION RATE > 60.0 (>60); GLUCOSE, FASTING 94 MG/DL (70-100); LIPASE 155 U/L (73-393); MB/CK RELATIVE INDEX 0.18 (< OR =4); NT-PRO BNP 32 PG/ML (<125); POTASSIUM SERUM 4.2 MEQ/L (3.5-5.1); SODIUM LEVEL 143 MEQ/L (136-145); THYROID STIMULATING HORMONE 0.653 uIU/ML (0.358-3.740); TOTAL PROTEIN 6.6 GM/DL (6.4-8.2); TROPONIN I < 0.02 NG/ML (< 0.10)
[2018-12-12] MEDS ORDERED: NS 1,000 ML IV ONE (11:45)
[2018-12-12 14:03] LABS: CPK CREATINE PHOSPHOKINASE 989 U/L (39-308); TROPONIN I < 0.02 NG/ML (< 0.10)
[2018-12-12 14:31] VITALS: BP 142/86
--- NOTE | 2018-12-12 20:37 | ECGEPIP ---
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
== END 2018-12-12 14:51 | disposition home or self-care (01) ==
LOC: M ED 08:10
DX: F41.9 Anxiety disorder, unspecified (principal); Z79.82 Long term (current) use of aspirin

== ENCOUNTER 2018-12-21 08:13 | Emergency (ER) | payer OTHER ==
[~2018-12-21] VITALS: Ht 203.2 cm; Wt 103.6 kg
[2018-12-21 09:24] LABS: ALBUMIN 3.8 GM/DL (3.2-5.2); ALT/SGPT 20 U/L (12-78); BILIRUBIN,DIRECT 0.3 MG/DL (0.0-0.2); BILIRUBIN,TOTAL 1.8 MG/DL (0.2-1.0); CPK CREATINE PHOSPHOKINASE 170 U/L (39-308); LIPASE 180 U/L (73-393); MB/CK RELATIVE INDEX 0.82 (< OR =4); TOTAL PROTEIN 6.7 GM/DL (6.4-8.2); TROPONIN I < 0.02 NG/ML (< 0.10)
[2018-12-21 11:19] LABS: AMPHETAMINES LEVEL URINE NEGATIVE (NEGATIVE); BARBITURATES URINE NEGATIVE (NEGATIVE); BENZODIAZEPINES URINE NEGATIVE (NEGATIVE); CANNABINOIDS URINE NEGATIVE (NEGATIVE); COCAINE METABOLITE URINE NEGATIVE (NEGATIVE); METHADONE URINE NEGATIVE (NEGATIVE); OPIATES URINE NEGATIVE (NEGATIVE); PHENCYCLIDINE URINE NEGATIVE (NEGATIVE)
[2018-12-21 12:30] VITALS: BP 116/64
--- NOTE | 2018-12-21 20:33 | ECGEPIP ---
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
== END 2018-12-21 13:00 | disposition home or self-care (01) ==
LOC: M ED 08:13
DX: R07.89 Other chest pain (principal); G56.22 Lesion of ulnar nerve, left upper limb; F41.9 Anxiety disorder, unspecified; J45.909 Unspecified asthma, uncomplicated; Z79.82 Long term (current) use of aspirin

== ENCOUNTER 2019-05-15 15:31 | Emergency (ER) | payer OTHER ==
[~2019-05-15] VITALS: Ht 203.2 cm; Wt 109.7 kg
[2019-05-15 15:31] VITALS: BP 139/82
[~2019-05-15 15:31] MED LIST changes: -ASPI1TAB PO; +ASPI81TA26 PO; +HYDR-3715 PO; -NORCOTAB PO; -TRAZ-163 PO; +TRAZ-257 PO
[2019-05-15] MEDS ORDERED: ALBU8.5H (15:38)
[2019-05-15] MEDS ORDERED: ROBA500T PO (16:08)
[2019-05-15] MEDS ORDERED: IBUP-1022 PO (16:08)
== END 2019-05-15 16:16 | disposition home or self-care (01) ==
LOC: M ED 15:31
DX: S39.92XA Unspecified injury of lower back, initial encounter (principal); M62.830 Muscle spasm of back; X50.1XXA Overexertion from prolonged static or awkward postures, initial encounter; Y92.89 Other specified places as the place of occurrence of the external cause; M48.00 Spinal stenosis, site unspecified; J45.909 Unspecified asthma, uncomplicated; Z87.442 Personal history of urinary calculi; Z79.82 Long term (current) use of aspirin

== ENCOUNTER 2019-05-26 11:30 | Emergency (ER) | payer OTHER ==
[~2019-05-26] VITALS: Ht 203.2 cm; Wt 108.5 kg
[~2019-05-26 11:30] MED LIST changes: +ALBU8.5H; +ROBA500T PO; +TRAZ-163 PO; -TRAZ-257 PO
[2019-05-26 12:06] LABS: BASO % 0.2 % (0.0-1.0); EOS # 0.1 10^3/uL (0.0-0.50); EOS % 0.9 % (0.0-3.0); HEMATOCRIT 41.6 % (42.0-52.0); HEMOGLOBIN 14.2 g/dl (13.5-17.5); LYMPH # 1.6 10^3/uL (1.5-4.5); LYMPH % 24.6 % (24.0-44.0); MEAN CORPUSCULAR HEMOGLOBIN 29.6 pg (27.0-33.0); MEAN CORPUSCULAR HGB CONC 34.1 g/dl (32.0-36.5); MEAN CORPUSCULAR VOLUME 86.8 fl (80.0-96.0); MONO # 0.4 10^3/uL (0.0-0.8); MONO % 6.9 % (0.0-5.0); NEUTROPHILS # 4.3 10^3/uL (1.8-7.7); NEUTROPHILS % 67.1 % (36.0-66.0); PLATELET COUNT, AUTOMATED 190 10^3/uL (150-450); RED BLOOD COUNT 4.79 10^6/uL (4.30-6.10); WHITE BLOOD COUNT 6.4 10^3/uL (4.0-10.0)
[2019-05-26] MEDS ORDERED: GI COCKTAIL 50ML BTL(HYOSCYAMINE/MAALOX/LIDOCAINE VISCOUS)(1:3:1) PO ONE (12:15)
[2019-05-26 12:20] LABS: INR 1.01
[2019-05-26 12:21] LABS: PARTIAL THROMBOPLASTIN TIME 29.2 SECONDS (25.0-38.4)
[2019-05-26 12:23] LABS: D-DIMER QUANT 277.76 ng/ml (<500)
[2019-05-26 12:43] LABS: ALBUMIN 3.7 GM/DL (3.2-5.2); ALT/SGPT 25 U/L (12-78); BILIRUBIN,DIRECT 0.3 MG/DL (0.0-0.2); BILIRUBIN,TOTAL 1.4 MG/DL (0.2-1.0); BLOOD UREA NITROGEN 13 MG/DL (7-18); CALCIUM LEVEL 8.9 MG/DL (8.5-10.1); CARBON DIOXIDE LEVEL 29 MEQ/L (21-32); CHLORIDE LEVEL 110 MEQ/L (98-107); CK-MB VALUE MASS 1.2 NG/ML (<3.6); CPK CREATINE PHOSPHOKINASE 114 U/L (39-308); CREATININE FOR GFR 1.31 MG/DL (0.70-1.30); GLOMERULAR FILTRATION RATE > 60.0 (>60); GLUCOSE, FASTING 86 MG/DL (70-100); MB/CK RELATIVE INDEX 1.05 (< OR =4); POTASSIUM SERUM 4.2 MEQ/L (3.5-5.1); SODIUM LEVEL 142 MEQ/L (136-145); TOTAL PROTEIN 6.5 GM/DL (6.4-8.2); TROPONIN I < 0.02 NG/ML (< 0.10)
[2019-05-26] MEDS ORDERED: KETOROLAC 30 MG/ML VIAL (J1885) IV ONE (14:30)
[2019-05-26 15:47] LABS: CK-MB VALUE MASS 1.2 NG/ML (<3.6); CPK CREATINE PHOSPHOKINASE 109 U/L (39-308); TROPONIN I < 0.02 NG/ML (< 0.10)
[2019-05-26] MEDS ORDERED: KETO10TAB PO (16:25)
[2019-05-26 17:31] VITALS: BP 117/56
[2019-05-26] MEDS ORDERED: KETOROLAC TROMETHAMINE 10 MG TAB PO ONE (17:45)
--- NOTE | 2019-05-26 19:28 | ECGEPIP ---
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
--- NOTE | 2019-05-26 19:31 | ECGEPIP ---
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
--- NOTE | 2019-05-27 08:20 | REP ---
AP PORTABLE CHEST: 05/26/2019. Comparison: 12/12/2018, 05/02/2018. Clinical history: Chest pain. Findings: The lung cormier are well inflated and without infiltrate, effusion, atelectasis or mass. The heart, mediastinal and hilar contours are normal. The aorta and airway are intact. Bones without acute finding. No free air under the diaphragms. Impression: 1. Negative AP portable chest. Electronically Signed by Joel Evans MD 05/27/2019 08:25 A
== END 2019-05-26 17:45 | disposition home or self-care (01) ==
LOC: M ED 11:30
DX: R07.89 Other chest pain (principal); J45.909 Unspecified asthma, uncomplicated; Z79.82 Long term (current) use of aspirin

== ENCOUNTER 2019-07-10 13:14 | Emergency (ER) | payer OTHER ==
[~2019-07-10] VITALS: Ht 203.2 cm; Wt 109.1 kg
[2019-07-10] MEDS ORDERED: LOTRCRE TOP (16:36)
[2019-07-10] MEDS ORDERED: GNP1CRE5 TOP (16:38)
[2019-07-10 16:45] VITALS: BP 141/83
== END 2019-07-10 16:59 | disposition home or self-care (01) ==
LOC: M ED 13:14
DX: B35.3 Tinea pedis (principal); J45.909 Unspecified asthma, uncomplicated; G43.909 Migraine, unspecified, not intractable, without status migrainosus; M48.00 Spinal stenosis, site unspecified; Z87.442 Personal history of urinary calculi; F41.9 Anxiety disorder, unspecified; F32.9 Major depressive disorder, single episode, unspecified

== ENCOUNTER 2019-07-27 13:21 | Emergency (ER) | payer OTHER ==
[~2019-07-27] VITALS: Ht 203.2 cm; Wt 109.7 kg
[~2019-07-27 13:21] MED LIST changes: +GNP1CRE5 TOP; +LOTRCRE TOP
--- NOTE | 2019-07-27 15:37 | REP ---
Pelvis bilateral hip: Five views. History: Left groin pain after abduction. Injury. Comparison radiographs November 19, 2018. Findings: AP view of the pelvis and AP and frog-leg views of each hip are presented. Bony pelvic ring is intact. Sacrum and SI joints are unremarkable. Symphysis pubis is normal in position. The femoral heads are smooth and rounded and hip joint spaces are preserved bilaterally. No fracture or subluxation is seen. Periarticular soft tissues are unremarkable. Impression: Negative radiographs of the pelvis and hips bilaterally. No traumatic abnormality. Electronically Signed by Max Molina MD 07/27/2019 03:28 P
[2019-07-27] MEDS ORDERED: ACET-897 PO (15:51)
[2019-07-27 16:04] VITALS: BP 149/81
== END 2019-07-27 16:06 | disposition home or self-care (01) ==
LOC: M ED 13:21
DX: M25.552 Pain in left hip (principal); W01.0XXA Fall on same level from slipping, tripping and stumbling without subsequent striking against object, initial encounter; Y92.511 Restaurant or cafe as the place of occurrence of the external cause; Y93.9 Activity, unspecified; Y99.0 Civilian activity done for income or pay; I20.9 Angina pectoris, unspecified; G43.909 Migraine, unspecified, not intractable, without status migrainosus; J45.909 Unspecified asthma, uncomplicated; K21.9 Gastro-esophageal reflux disease without esophagitis; M54.9 Dorsalgia, unspecified; M48.00 Spinal stenosis, site unspecified; Z79.82 Long term (current) use of aspirin

== ENCOUNTER 2019-08-08 12:08 | Day surgery (SDC) | payer OTHER ==
[~2019-08-08] VITALS: Ht 203.2 cm; Wt 108.0 kg
[~2019-08-08 12:08] MED LIST changes: +ACET-897 PO
[2019-08-08] MEDS ORDERED: NS 1,000 ML IV ONE (14:00)
[2019-08-08] MEDS ORDERED: PROPOFOL 200 MG/20 ML VIAL As Ordered ONE (14:51)
[2019-08-08] MEDS ORDERED: LIDOCAINE 2% INJ 100 MG/5 ML SDV (FOR ANES.) As Ordered ONE (14:51)
--- NOTE | 2019-08-08 15:20 | ROOR ---
Patient Name: Brittany Blanc Procedure Date: 08/08/2019 3:06 PM Date of : 1975 Age: 44 Room: [facility] Gender: Male Note Status: Finalized Procedure: Upper GI endoscopy Indications: Oral phase dysphagia Providers: Brandan WAGNER MD Referring MD: Rudy DORANTES MD Requesting Provider: Medicines: Monitored Anesthesia Care Complications: No immediate complications. Procedure: Pre-Anesthesia Assessment: - The heart rate, respiratory rate, oxygen saturations, blood pressure, adequacy of pulmonary ventilation, and response to care were monitored throughout the procedure. The Endoscope was introduced through the mouth, and advanced to the second part of duodenum. The upper GI endoscopy was accomplished without difficulty. The patient tolerated the procedure well. Findings: Very small (insignificant) Hiatal Hernia. The esophagus was normal. The stomach was normal. The examined duodenum was normal. Impression: - Normal esophagus. - Normal stomach with a very small (insignificant) Hiatal Hernia. - Normal examined duodenum. - No specimens collected. Recommendation: - Observe patient's clinical course. - Consideration may be given to an empiric 1-2 month trial on PPI therapy (Omeprazole 40 mg q day). Brandan Wagner MD Brandan WAGNER MD 08/08/2019 3:20:02 PM Electronically signed by Brandan WAGNER MD Number of Addenda: 0 Note Initiated On: 08/08/2019 3:06 PM Estimated Blood Loss: Estimated blood loss: none.
--- NOTE | 2019-08-08 15:40 | ROOR ---
Patient Name: Brittany Blanc Procedure Date: 08/08/2019 3:07 PM Date of : 1975 Age: 44 Room: [facility] Gender: Male Note Status: Finalized Procedure: Colonoscopy Indications: Abnormal CT of the GI tract Providers: Brandan WAGNER MD Referring MD: Rudy DORANTES MD Requesting Provider: Medicines: Monitored Anesthesia Care Complications: No immediate complications. Procedure: Pre-Anesthesia Assessment: - The heart rate, respiratory rate, oxygen saturations, blood pressure, adequacy of pulmonary ventilation, and response to care were monitored throughout the procedure. The Colonoscope was introduced through the anus and advanced to the cecum, identified by appendiceal orifice and ileocecal valve. The colonoscopy was performed without difficulty. The patient tolerated the procedure well. The quality of the bowel preparation was good. Findings: The perianal and digital rectal examinations were normal. Retroflexion in the right colon was performed. The entire examined colon appeared normal on direct and retroflexion views. (No rectal abnormality was seen) Internal hemorrhoids were found during retroflexion. The hemorrhoids were small. Impression: - The entire colon is normal on direct and retroflexion views. - Internal hemorrhoids. - No specimens collected. Recommendation: - Return to referring physician as previously scheduled. Brandan Wagner MD Brandan WAGNER MD 08/08/2019 3:40:06 PM Electronically signed by Brandan WAGNER MD Number of Addenda: 0 Note Initiated On: 08/08/2019 3:07 PM Estimated Blood Loss: Estimated blood loss: none.
[2019-08-08 16:00] VITALS: BP 139/83
== END 2019-08-08 16:30 | disposition home or self-care (01) ==
LOC: M OPP 12:08
PROVIDERS: ATTEND Internal Medicine Gastroenterology
DX: K64.8 Other hemorrhoids (principal); R93.3 Abnormal findings on diagnostic imaging of other parts of digestive tract; R13.11 Dysphagia, oral phase; Z79.82 Long term (current) use of aspirin; Z79.899 Other long term (current) drug therapy; Z96.0 Presence of urogenital implants

== ENCOUNTER 2019-09-26 10:55 | Emergency (ER) | payer OTHER ==
[~2019-09-26] VITALS: Ht 203.2 cm; Wt 107.6 kg
[2019-09-26] MEDS ORDERED: ACETAMINOPHEN 325 MG TAB PO ONE (11:30)
[2019-09-26] MEDS ORDERED: NS 1,000 ML IV ONE (11:30)
--- NOTE | 2019-09-26 11:50 | REP ---
Two-view chest: 09/26/2019. Indication: Epigastric pain. Comparison: 05/26/2019. Findings: The lungs are clear. There is no pleural effusion or pneumothorax. The cardiomediastinal silhouette is unremarkable. Impression: No acute cardiopulmonary process. Electronically Signed by Sebastien Gómez DO 09/26/2019 11:41 A
[2019-09-26 12:01] LABS: BASO % 0.2 % (0.0-1.0); EOS # 0.1 10^3/uL (0.0-0.5); EOS % 1.4 % (0.0-3.0); HEMOGLOBIN 15.5 g/dl (13.5-17.5); LYMPH # 1.5 10^3/uL (1.5-5.0); LYMPH % 15.6 % (24.0-44.0); MEAN CORPUSCULAR HEMOGLOBIN 29.7 pg (27.0-33.0); MONO # 0.8 10^3/uL (0.0-0.8); MONO % 8.1 % (0.0-5.0); NEUTROPHILS % 74.4 % (36.0-66.0); PLATELET COUNT, AUTOMATED 202 10^3/uL (150-450); RED BLOOD COUNT 5.22 10^6/uL (4.30-6.10); WHITE BLOOD COUNT 9.5 10^3/uL (4.0-10.0)
[2019-09-26 12:30] LABS: ALT/SGPT 16 U/L (12-78); BILIRUBIN,DIRECT 0.3 MG/DL (0.0-0.2); BILIRUBIN,TOTAL 1.7 MG/DL (0.2-1.0); BLOOD UREA NITROGEN 15 MG/DL (7-18); CALCIUM LEVEL 8.8 MG/DL (8.5-10.1); CARBON DIOXIDE LEVEL 30 MEQ/L (21-32); CHLORIDE LEVEL 107 MEQ/L (98-107); CREATININE FOR GFR 1.27 MG/DL (0.70-1.30); GLOMERULAR FILTRATION RATE > 60.0 (>60); GLUCOSE, FASTING 87 MG/DL (70-100); LIPASE 101 U/L (73-393); POTASSIUM SERUM 4.2 MEQ/L (3.5-5.1); SODIUM LEVEL 143 MEQ/L (136-145); TOTAL PROTEIN 7.2 GM/DL (6.4-8.2)
[2019-09-26] MEDS ORDERED: KETOROLAC 30 MG/ML VIAL (J1885) IV ONE (13:00)
[2019-09-26 13:33] LABS: INFLUENZA A AMPLIFICATION NEGATIVE (NEGATIVE); INFLUENZA B AMPLIFICATION NEGATIVE (NEGATIVE)
--- NOTE | 2019-09-26 14:08 | REP ---
RIGHT UPPER QUADRANT ULTRASOUND: Real-time sonographic evaluation of the right upper quadrant is performed. Gallbladder demonstrates no evidence of intraluminal sludge or calculi, wall thickening or pericholecystic fluid. There is no intrahepatic or extrahepatic biliary dilatation, common bile duct measuring 3 mm. Liver demonstrates homogeneous echotexture with no gross mass. Pancreas could not be seen due to overlying bowel gas. Right kidney demonstrates no hydronephrosis with normal size 11.7 cm in length. There is no ascites. IMPRESSION: Essentially negative right upper quadrant ultrasound. Electronically Signed by Ricky Armstrong MD 09/26/2019 05:13 P
[2019-09-26] MEDS ORDERED: MACR100C43 PO (14:25)
[2019-09-26 14:42] VITALS: BP 107/70
[2019-09-30 10:59] LABS: HEPATITIS B SURFACE ANTIGEN NEGATIVE (NEGATIVE)
[2019-09-30 11:26] LABS: HEPATITIS C VIRUS ABY INDEX 0.2 INDEX (<0.8)
[2019-09-30 11:27] LABS: HEPATITIS B CORE ANTIBODY IGM NEGATIVE (NEGATIVE)
[2019-09-30 11:28] LABS: HEPATITIS A ANTIBODY IGM NEGATIVE (NEGATIVE)
== END 2019-09-26 14:51 | disposition home or self-care (01) ==
LOC: M ED 10:55
DX: J00 Acute nasopharyngitis [common cold] (principal); N39.0 Urinary tract infection, site not specified; R79.9 Abnormal finding of blood chemistry, unspecified; B34.9 Viral infection, unspecified; J45.909 Unspecified asthma, uncomplicated; G43.909 Migraine, unspecified, not intractable, without status migrainosus; K21.9 Gastro-esophageal reflux disease without esophagitis
CPT/HCPCS: 71046; 76705; 80048; 80076; 81001; 83690; 85025; 86705; 86709; 86803; 87086; 87340; 87502; 96361; 96374; 99284; J1885

== ENCOUNTER → 2020-02-26 | Outpatient (REF) | payer OTHER ==
[~2020-02-26] MED LIST changes: +CYCL-707 PO; -CYCL10TA PO; +MACR100C43 PO; -TRAZ-163 PO; +TRAZ-257 PO
[2020-02-26 13:55] LABS: ALBUMIN 4.1 GM/DL (3.2-5.2); ALT/SGPT 57 U/L (12-78); BILIRUBIN,TOTAL 1.7 MG/DL (0.2-1.0); BLOOD UREA NITROGEN 15 MG/DL (7-18); CALCIUM LEVEL 8.7 MG/DL (8.5-10.1); CARBON DIOXIDE LEVEL 28 MEQ/L (21-32); CHLORIDE LEVEL 108 MEQ/L (98-107); GLOMERULAR FILTRATION RATE > 60.0 (>60); GLUCOSE, FASTING 88 MG/DL (70-100); POTASSIUM SERUM 4.2 MEQ/L (3.5-5.1); SODIUM LEVEL 142 MEQ/L (136-145)
[2020-02-26 14:01] LABS: BASO % 0.3 % (0.0-1.0); EOS # 0.1 10^3/uL (0.0-0.5); EOS % 1.8 % (0.0-3.0); HEMATOCRIT 44.3 % (42.0-52.0); LYMPH # 1.4 10^3/uL (1.5-5.0); LYMPH % 18.6 % (24.0-44.0); MEAN CORPUSCULAR HEMOGLOBIN 29.6 pg (27.0-33.0); MEAN CORPUSCULAR HGB CONC 33.9 g/dl (32.0-36.5); MEAN CORPUSCULAR VOLUME 87.5 fl (80.0-96.0); MONO # 0.6 10^3/uL (0.0-0.8); MONO % 7.1 % (0.0-5.0); NEUTROPHILS # 5.5 10^3/uL (1.5-8.5); NEUTROPHILS % 71.7 % (36.0-66.0); PLATELET COUNT, AUTOMATED 213 10^3/uL (150-450); RED BLOOD COUNT 5.06 10^6/uL (4.30-6.10); WHITE BLOOD COUNT 7.7 10^3/uL (4.0-10.0)
[2020-02-26 14:17] LABS: APPEARANCE, URINE CLEAR (CLEAR); BACTERIA, URINE AUTO NEGATIVE (NEGATIVE); BILIRUBIN, URINE AUTO NEGATIVE (NEGATIVE); BLOOD, URINE BLOOD NEGATIVE (NEGATIVE); CALCIUM OXALATE CRYSTALS SMALL; COLOR, URINE YELLOW (YELLOW); GLUCOSE, URINE (UA) AUTO NEGATIVE (NEGATIVE); KETONE, URINE AUTO TRACE mg/dL (NEGATIVE); LEUKOCYTE ESTERASE, URINE AUTO NEGATIVE (NEGATIVE); MUCUS, URINE SMALL (NEGATIVE); NITRITE, URINE AUTO NEGATIVE (NEGATIVE); PROTEIN, URINE AUTO NEGATIVE (NEGATIVE); RBC, URINE AUTO 0 /HPF (0-3); SPECIFIC GRAVITY URINE AUTO 1.029 (1.002-1.035); SQUAMOUS EPITHELIAL CELL UR AU 0 /HPF (0-6); UROBILINOGEN, URINE AUTO 0.2 mg/dL (0.0-2.0); WBC, URINE AUTO 0 /HPF (0-3)
[2020-02-28 10:07] LABS: E001-IgE Cat Epith/Dander < 0.10 kU/L (Class 0); E005-IgE Dog Dander < 0.10 kU/L (Class 0); G002-IgE Bermuda Grass 0.29 kU/L (Class 0/I); G008-IgE Kentucky Bluegrass 1.42 kU/L (Class III); M001-IgE Penicillium chrysogen < 0.10 kU/L (Class 0); M002 IgE Cladosporium herbaru < 0.10 kU/L (Class 0); M003 IgE Aspergillus fumigatu < 0.10 kU/L (Class 0); M006-IgE Alternaria alternata < 0.10 kU/L (Class 0); T001-IgE Maple/Box Elder < 0.10 kU/L (Class 0); T003-IgE Common Silver Birch < 0.10 kU/L (Class 0); T006-IgE Cedar, Mountain < 0.10 kU/L (Class 0); T007-IgE Oak, White < 0.10 kU/L (Class 0); T008-IgE Elm, American < 0.10 kU/L (Class 0); T015-IgE Ash, White < 0.10 kU/L (Class 0); T041-IgE Hickory, White < 0.10 kU/L (Class 0); T070-IgE White Mulberry < 0.10 kU/L (Class 0); W001-IgE Ragweed, Short < 0.10 kU/L (Class 0); W009-IgE Plantain, English < 0.10 kU/L (Class 0); W014-IgE Pigweed, Rough < 0.10 kU/L (Class 0); W018-IgE Sheep Sorrel < 0.10 kU/L (Class 0)
== END ==
LOC: M SFHCPLAZ 11:50
PROVIDERS: ATTEND Physician Assistant Medical
DX: J30.2 Other seasonal allergic rhinitis (principal); J45.20 Mild intermittent asthma, uncomplicated

== ENCOUNTER → 2020-04-08 | Outpatient (CLI) | payer OTHER ==
[~2020-04-08] MED LIST changes: +BENA25CA4 PO; +DULO1CAP4 PO; +FLUT1INH3 PO; +LEVA750T7 PO; +LORA-674 PO; +MONT10TA4 PO
== END ==
LOC: M LABSMTC 10:06
PROVIDERS: ATTEND Family Medicine
DX: Z11.59 Encounter for screening for other viral diseases (principal)
CPT/HCPCS: C9803; U0003

== ENCOUNTER 2020-04-16 21:02 | Emergency (ER) | payer OTHER ==
[~2020-04-16] VITALS: Ht 203.2 cm; Wt 119.1 kg
[~2020-04-16 21:02] MED LIST changes: -BENA25CA4 PO; -DULO1CAP4 PO; -FLUT1INH3 PO; -LEVA750T7 PO; -LORA-674 PO; -MONT10TA4 PO
[2020-04-16] MEDS ORDERED: BENA25CA4 PO (21:22)
[2020-04-16] MEDS ORDERED: LORA-674 PO (21:22)
[2020-04-16] MEDS ORDERED: MONT10TA4 PO (21:22)
[2020-04-16] MEDS ORDERED: DULO1CAP4 PO ×2 (21:22→21:23)
[2020-04-16] MEDS ORDERED: FLUT1INH3 PO (21:22)
[2020-04-16 21:55] LABS: BASO % 0.2 % (0.0-1.0); EOS # 0.1 10^3/uL (0.0-0.5); EOS % 0.8 % (0.0-3.0); HEMATOCRIT 41.9 % (42.0-52.0); HEMOGLOBIN 13.9 g/dl (13.5-17.5); LYMPH # 1.8 10^3/uL (1.5-5.0); LYMPH % 19.7 % (24.0-44.0); MEAN CORPUSCULAR HEMOGLOBIN 29.8 pg (27.0-33.0); MEAN CORPUSCULAR HGB CONC 33.2 g/dl (32.0-36.5); MEAN CORPUSCULAR VOLUME 89.7 fl (80.0-96.0); MONO % 10.8 % (0.0-5.0); NEUTROPHILS # 6.1 10^3/uL (1.5-8.5); NEUTROPHILS % 67.8 % (36.0-66.0); PLATELET COUNT, AUTOMATED 168 10^3/uL (150-450); RED BLOOD COUNT 4.67 10^6/uL (4.30-6.10)
--- NOTE | 2020-04-16 23:13 | REPVR ---
PROCEDURE INFORMATION: Exam: CT Chest Without Contrast Exam date and time: 04/16/2020 11:00 PM Age: 44 years old Clinical indication: Shortness of breath; Additional info: New left infiltrate TECHNIQUE: Imaging protocol: Computed tomography of the chest without contrast. 3D rendering: MIP and/or 3D reconstructed images were created by the technologist. Radiation optimization: All CT scans at this facility use at least one of these dose optimization techniques: automated exposure control; mA and/or kV adjustment per patient size (includes targeted exams where dose is matched to clinical indication); or iterative reconstruction. COMPARISON: [place] Chest, 2 view PA, Lat 09/26/2019 11:26 AM FINDINGS: Lungs: Minimal subpleural bullous change and subpleural fibro-atelectatic change in the posterior left lower lobe. Moderate localized bullous change and interstitial prominence or scar in the lingula. There is some associated infiltrate and fluid some bulla suggesting overlying infection or pneumonia. Pleural space: Unremarkable. No pneumothorax. No pleural effusion. Heart: Unremarkable. No cardiomegaly. No pericardial effusion. Mediastinal space: There is associated left infrahilar or central lingular mass which is not well-defined from the left hilum but appears to measure approximately 5.2 x 2.9 x 3.4 cm. Induration of anterior mediastinal fat which may reflect residual thymic tissue. Aorta: The ascending thoracic aorta measures 28 mm. Lymph nodes: Unremarkable. No enlarged lymph nodes. Bones/joints: Unremarkable. No acute fracture. Soft tissues: Unremarkable. IMPRESSION: 1. Left infrahilar or central lingular mass with more peripheral moderate bullous change and interstitial prominence and scar in the lingula. There is some patchy infiltrate and trace fluid and some bullous suggesting infection or pneumonia in the area. 2. Minimal bilateral lower lobe subpleural cystic change with minimal fibro-atelectatic change. Electronically signed by: Loco Hearn On 04/16/2020 23:13:21 PM
[2020-04-16 23:57] LABS: AMPHETAMINES LEVEL URINE NEGATIVE (NEGATIVE); BARBITURATES URINE NEGATIVE (NEGATIVE); BENZODIAZEPINES URINE NEGATIVE (NEGATIVE); CANNABINOIDS URINE NEGATIVE (NEGATIVE); COCAINE METABOLITE URINE NEGATIVE (NEGATIVE); METHADONE URINE NEGATIVE (NEGATIVE); OPIATES URINE NEGATIVE (NEGATIVE); PHENCYCLIDINE URINE NEGATIVE (NEGATIVE)
[2020-04-17] MEDS ORDERED: LEVA750T7 PO (00:47)
[2020-04-17 01:00] VITALS: BP 150/79
[2020-04-17] MEDS ORDERED: LevoFLOXacin 750 MG TABLET PO ONE (01:00)
--- NOTE | 2020-04-17 08:25 | REP ---
REASON: Dyspnea. Patchy opacities are seen in the left lower lobe. The cardiac silhouette is magnified by technique. There is no cardiomegaly. The pleural angles are sharp and the osseus structures are within normal limits. IMPRESSION: Left lower lobe pneumonia. Electronically Signed by Crispin López DO 04/17/2020 09:17 A
--- NOTE | 2020-04-17 08:26 | ED PDOC ---
Post-Departure Follow-Up bebo williamson and dr pressley faxed formal report of ct chest for fu Dona Bond MD Apr 17, 2020 08:26
--- NOTE | 2020-04-17 10:19 | ECGEPIP ---
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
== END 2020-04-17 01:13 | disposition home or self-care (01) ==
LOC: M ED 21:02
DX: R91.8 Other nonspecific abnormal finding of lung field (principal); J18.8 Other pneumonia, unspecified organism; R00.0 Tachycardia, unspecified; J45.909 Unspecified asthma, uncomplicated; G43.909 Migraine, unspecified, not intractable, without status migrainosus; F25.9 Schizoaffective disorder, unspecified; G47.00 Insomnia, unspecified; F41.9 Anxiety disorder, unspecified; M54.9 Dorsalgia, unspecified; F15.10 Other stimulant abuse, uncomplicated; F14.10 Cocaine abuse, uncomplicated; F17.200 Nicotine dependence, unspecified, uncomplicated; Z82.49 Family history of ischemic heart disease and other diseases of the circulatory system; Z79.899 Other long term (current) drug therapy

== ENCOUNTER → 2020-06-10 | Outpatient (CLI) | payer OTHER ==
[~2020-06-10] MED LIST changes: -ASPI81TA85 PO; +ASPI81TA86 PO; +BENA25CA4 PO; +DOXY100C37 PO; +DULO1CAP4 PO; +FLUT1INH3 PO; +ISOVUE-370 76% 100ML VIAL As Ordered ONE; +LEVA750T7 PO; +LORA-674 PO; +MONT10TA4 PO
--- NOTE | 2020-07-08 09:57 | REP ---
CONTRAST-ENHANCED CHEST CT: CLINICAL: Follow up abnormal lung findings. TECHNIQUE: Axial contrast-enhanced images from the thoracic inlet to the upper abdomen with coronal and sagittal reformations using 75 cc Isovue 370 intravenous contrast material. COMPARISON: 04/16/20 FINDINGS: Irregular bullae and chronic-appearing cystic changes with scarring involves the lingula/left upper lobe and the previously noted associated area of consolidation in the left hilar region has resolved. These findings likely represent sequelae of chronic infection. The lung cormier are otherwise clear on current examination and without acute consolidation, nodule or mass. No axillary, hilar or mediastinal adenopathy. No pleural effusion or pneumothorax. The tracheobronchial tree is patent. Further evaluation of the mediastinum demonstrates normal thoracic aorta, pulmonary vasculature and heart/pericardium. Surrounding musculoskeletal structures are intact. Limited upper abdomen demonstrates normal bilateral adrenal glands. IMPRESSION: 1. Chronic irregular cystic and bullous changes involving the lingula/left upper lobe suggesting sequelae of prior infections. Previously noted associated consolidation in the perihilar region has resolved. 2. No new acute mediastinal or pleuroparenchymal process appreciated. MTDD
== END ==
LOC: M RAD 08:22
PROVIDERS: ATTEND Internal Medicine Pulmonary Disease
DX: R91.8 Other nonspecific abnormal finding of lung field (principal)
CPT/HCPCS: 71260; Q9967

== ENCOUNTER 2020-08-14 21:46 | Emergency (ER) | payer OTHER ==
[~2020-08-14] VITALS: Ht 203.2 cm; Wt 126.1 kg
[~2020-08-14 21:46] MED LIST changes: -DOXY100C37 PO; -ISOVUE-370 76% 100ML VIAL As Ordered ONE
--- NOTE | 2020-08-14 23:24 | REPVR ---
PROCEDURE INFORMATION: Exam: US Scrotum and Artery or Vein of the Abdominal and/or Reproductive Organs, Limited Scrotum Exam date and time: 08/14/2020 11:09 PM Age: 45 years old Clinical indication: Scrotum pain; Additional info: Right testicular pain TECHNIQUE: Imaging protocol: Real-time ultrasound of the scrotum. Real-time duplex ultrasound scan of the arterial or venous flow with calixto scale, color Doppler flow and spectral waveform analysis with image documentation. Limited Duplex exam focused of the scrotum. Duplex images required to evaluate for torsion and other vascular conditions. COMPARISON: Scrotal, US 09/17/2015 9:44 AM (The report from this study was not available for review at the time of this interpretation.) FINDINGS: Right testicle: The right testicle is normal in appearance. No testicular mass or lesion is noted. The right testicle measures 4.2 cm x 2.5 cm x 3.4 cm. The color Doppler flow and spectral waveforms in the right testicle are within normal limits without evidence for testicular torsion or orchitis. Left testicle: The left testicle is normal in appearance. No testicular mass or lesion is noted. The left testicle measures 3.9 cm x 3.1 cm x 2.5 cm. The color Doppler flow and spectral waveforms in the left testicle are within normal limits without evidence for testicular torsion or orchitis. Epididymides: Normal. No epididymitis. Scrotum: No hydrocele or varicocele is noted. IMPRESSION: Normal scrotal ultrasound. No evidence for testicular torsion, orchitis, or epididymitis. Electronically signed by: Alan Raines On 08/14/2020 23:24:11 PM
[2020-08-15 01:57] LABS: CHLAMYDIA DNA AMPLIFICATION NEGATIVE (NEGATIVE); GC DNA AMPLIFICATION NEGATIVE (NEGATIVE)
[2020-08-15] MEDS ORDERED: DOXYCYCLINE HYCLATE 100MG TABLET PO ONE (03:00)
[2020-08-15] MEDS ORDERED: DOXY100C37 PO (03:07)
[2020-08-15 03:18] VITALS: BP 134/88
== END 2020-08-15 03:20 | disposition home or self-care (01) ==
LOC: M ED 21:46
DX: N50.811 Right testicular pain (principal); J44.9 Chronic obstructive pulmonary disease, unspecified; M54.9 Dorsalgia, unspecified; G89.29 Other chronic pain; G43.909 Migraine, unspecified, not intractable, without status migrainosus; K21.9 Gastro-esophageal reflux disease without esophagitis; F41.9 Anxiety disorder, unspecified; F32.9 Major depressive disorder, single episode, unspecified; Z87.442 Personal history of urinary calculi; Z79.899 Other long term (current) drug therapy

== ENCOUNTER 2020-09-04 12:38 | Emergency (ER) | payer OTHER ==
[~2020-09-04] VITALS: Ht 203.2 cm; Wt 124.8 kg
[~2020-09-04 12:38] MED LIST changes: +DOXY100C37 PO; -MONT10TA4 PO; +MONT5TAB2 PO
[2020-09-04 12:40] VITALS: BP 128/79
[2020-09-04] MEDS ORDERED: PRED10TA2 PO (14:11)
[2020-09-04] MEDS ORDERED: ROBA750T4 PO (14:11)
== END 2020-09-04 14:26 | disposition home or self-care (01) ==
LOC: M ED 12:38
DX: M54.5 Low back pain (principal); G89.29 Other chronic pain; M48.00 Spinal stenosis, site unspecified; G43.909 Migraine, unspecified, not intractable, without status migrainosus; J45.909 Unspecified asthma, uncomplicated; J44.9 Chronic obstructive pulmonary disease, unspecified; Z79.899 Other long term (current) drug therapy

== ENCOUNTER → 2020-09-09 | Outpatient (CLI) | payer OTHER ==
[~2020-09-09] MED LIST changes: +PRED10TA2 PO; +ROBA750T4 PO
[2020-09-09 13:44] LABS: BASO % 0.3 % (0.0-1.0); EOS # 0.1 10^3/uL (0.0-0.5); EOS % 1.6 % (0.0-3.0); HEMATOCRIT 46.3 % (42.0-52.0); HEMOGLOBIN 15.4 g/dl (13.5-17.5); LYMPH # 2.1 10^3/uL (1.5-5.0); LYMPH % 27.8 % (24.0-44.0); MEAN CORPUSCULAR HEMOGLOBIN 29.2 pg (27.0-33.0); MEAN CORPUSCULAR HGB CONC 33.3 g/dl (32.0-36.5); MEAN CORPUSCULAR VOLUME 87.9 fl (80.0-96.0); MONO # 0.6 10^3/uL (0.0-0.8); MONO % 7.9 % (0.0-5.0); NEUTROPHILS # 4.6 10^3/uL (1.5-8.5); NEUTROPHILS % 62.1 % (36.0-66.0); PLATELET COUNT, AUTOMATED 198 10^3/uL (150-450); RED BLOOD COUNT 5.27 10^6/uL (4.30-6.10); WHITE BLOOD COUNT 7.4 10^3/uL (4.0-10.0)
[2020-09-09 14:10] LABS: ALT/SGPT 42 U/L (12-78); BILIRUBIN,TOTAL 1.3 MG/DL (0.2-1.0); BLOOD UREA NITROGEN 20 MG/DL (7-18); CALCIUM LEVEL 8.3 MG/DL (8.5-10.1); CARBON DIOXIDE LEVEL 29 MEQ/L (21-32); CHLORIDE LEVEL 111 MEQ/L (98-107); CHOLESTEROL LEVEL 160 MG/DL (<200); CHOLESTEROL RISK RATIO 3.809 (<5); CREATININE FOR GFR 1.34 MG/DL (0.70-1.30); GLOMERULAR FILTRATION RATE > 60.0 (>60); GLUCOSE, FASTING 98 MG/DL (70-100); HDL CHOLESTEROL 42 MG/DL (>40); LDL CHOLESTEROL 95 MG/DL (<100); NON-HDL-C 118 MG/DL; POTASSIUM SERUM 4.5 MEQ/L (3.5-5.1); SODIUM LEVEL 144 MEQ/L (136-145); TRIGLYCERIDES LEVEL 115 MG/DL (<150)
== END ==
LOC: M PLALAB 09:37
PROVIDERS: ATTEND Physician Assistant Medical
DX: J45.20 Mild intermittent asthma, uncomplicated (principal); Z13.220 Encounter for screening for lipoid disorders; Z12.5 Encounter for screening for malignant neoplasm of prostate

== ENCOUNTER 2021-01-11 00:32 | Emergency (ER) | payer OTHER ==
[~2021-01-11] VITALS: Ht 203.2 cm; Wt 133.9 kg
[~2021-01-11 00:32] MED LIST changes: +MONT10TA10 PO; -MONT5TAB2 PO
[2021-01-11] MEDS ORDERED: LR 1,000 ML IV ONE (02:00)
[2021-01-11 02:02] LABS: BASO % 0.4 % (0.0-1.0); EOS # 0.2 10^3/uL (0.0-0.5); EOS % 2.2 % (0.0-3.0); HEMATOCRIT 42.1 % (42.0-52.0); HEMOGLOBIN 13.7 g/dl (13.5-17.5); LYMPH # 2.3 10^3/uL (1.5-5.0); LYMPH % 28.3 % (24.0-44.0); MEAN CORPUSCULAR HEMOGLOBIN 29.4 pg (27.0-33.0); MEAN CORPUSCULAR HGB CONC 32.5 g/dl (32.0-36.5); MEAN CORPUSCULAR VOLUME 90.3 fl (80.0-96.0); MONO # 0.7 10^3/uL (0.0-0.8); MONO % 8.7 % (2.0-8.0); NEUTROPHILS # 4.8 10^3/uL (1.5-8.5); NEUTROPHILS % 59.9 % (36.0-66.0); PLATELET COUNT, AUTOMATED 207 10^3/uL (150-450); RED BLOOD COUNT 4.66 10^6/uL (4.30-6.10)
[2021-01-11 02:21] LABS: ALBUMIN 3.7 GM/DL (3.2-5.2); ALT/SGPT 39 U/L (12-78); BILIRUBIN,DIRECT 0.2 MG/DL (0.0-0.2); BILIRUBIN,TOTAL 0.7 MG/DL (0.2-1.0); BLOOD UREA NITROGEN 26 MG/DL (7-18); CALCIUM LEVEL 8.4 MG/DL (8.5-10.1); CARBON DIOXIDE LEVEL 30 MEQ/L (21-32); CHLORIDE LEVEL 108 MEQ/L (98-107); CPK CREATINE PHOSPHOKINASE 122 U/L (39-308); CREATININE FOR GFR 1.41 MG/DL (0.70-1.30); FREE THYROXINE INDEX 2.8 % (1.4-3.8); GLOMERULAR FILTRATION RATE 57.6 (>60); GLUCOSE, FASTING 99 MG/DL (70-100); LIPASE 128 U/L (73-393); MAGNESIUM LEVEL 2.4 MG/DL (1.8-2.4); MB/CK RELATIVE INDEX 0.82 (< OR =4); POTASSIUM SERUM 4.2 MEQ/L (3.5-5.1); SODIUM LEVEL 142 MEQ/L (136-145); T UPTAKE 36 % (33-40); THYROXINE (T4) 7.9 UG/DL (4.5-12.0); TOTAL PROTEIN 6.8 GM/DL (6.4-8.2); TROPONIN I < 0.02 NG/ML (< 0.10)
--- NOTE | 2021-01-11 03:05 | REPVR ---
PROCEDURE INFORMATION: Exam: XR Abdomen Exam date and time: 01/11/2021 2:14 AM Age: 45 years old Clinical indication: Abdominal pain; Acute; Additional info: Examine gas pattern TECHNIQUE: Imaging protocol: XR of the abdomen. Views: 2 Views. Upright and supine views. COMPARISON: No relevant prior studies available. FINDINGS: Gastrointestinal tract: Minimal gas in the GI tract, greatest in the colon without abnormal dilatation. Gas is noted to the level of the rectum. Intraperitoneal space: Normal. No free air. Bones/joints: Unremarkable for age. IMPRESSION: Negative abdomen with minimal gas which is greatest in the colon. Electronically signed by: Loco Hearn On 01/11/2021 03:05:44 AM
--- NOTE | 2021-01-11 03:06 | REPVR ---
PROCEDURE INFORMATION: Exam: XR Chest Exam date and time: 01/11/2021 2:14 AM Age: 45 years old Clinical indication: Chest pain; Type not specified; Additional info: Examine gas pattern TECHNIQUE: Imaging protocol: XR of the chest Views: 2 views. COMPARISON: CT Chest with contrast 06/10/2020 8:47 AM FINDINGS: Lungs: Unremarkable. No consolidation. Pleural spaces: Unremarkable. No pleural effusion. No pneumothorax. Heart/Mediastinum: Unremarkable. No cardiomegaly. Bones/joints: Unremarkable. IMPRESSION: Negative chest without significant change from 06/10/2020. Electronically signed by: Loco Hearn On 01/11/2021 03:06:41 AM
[2021-01-11] MEDS ORDERED: QC F0.52 PO (03:29)
[2021-01-11] MEDS ORDERED: RA F PO (03:30)
[2021-01-11 03:45] VITALS: BP 134/67
--- NOTE | 2021-01-12 17:45 | ECGEPIP ---
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
== END 2021-01-11 04:15 | disposition home or self-care (01) ==
LOC: M ED 00:32
DX: R19.7 Diarrhea, unspecified (principal); R00.2 Palpitations; R42 Dizziness and giddiness

== ENCOUNTER → 2021-04-05 | Outpatient (CLI) | payer OTHER ==
[~2021-04-05] MED LIST changes: -DOXY100C37 PO; +DOXY1CAP62 PO; +QC F0.52 PO; +RA F PO
[2021-04-05 17:18] LABS: BASO % 0.4 % (0.0-1.0); EOS # 0.2 10^3/uL (0.0-0.5); HEMATOCRIT 43.3 % (42.0-52.0); HEMOGLOBIN 14.2 g/dl (13.5-17.5); LYMPH % 25.1 % (24.0-44.0); MEAN CORPUSCULAR HEMOGLOBIN 29.5 pg (27.0-33.0); MEAN CORPUSCULAR HGB CONC 32.8 g/dl (32.0-36.5); MEAN CORPUSCULAR VOLUME 89.8 fl (80.0-96.0); MONO # 0.7 10^3/uL (0.0-0.8); NEUTROPHILS % 63.1 % (36.0-66.0); PLATELET COUNT, AUTOMATED 223 10^3/uL (150-450); RED BLOOD COUNT 4.82 10^6/uL (4.30-6.10)
== END ==
LOC: M PLALAB 14:31
PROVIDERS: ATTEND Physician Assistant Medical
DX: K21.9 Gastro-esophageal reflux disease without esophagitis (principal)

== ENCOUNTER 2021-04-23 19:54 | Emergency (ER) | payer OTHER ==
[~2021-04-23] VITALS: Ht 203.2 cm; Wt 131.3 kg
[2021-04-23] MEDS ORDERED: KETOROLAC 30 MG/ML 1ML VIAL IV ONE (23:35)
[2021-04-23] MEDS ORDERED: BOOSTRIX/ADACEL VACCINE (DIPHTH/PERTUSS/ACELL/TETANUS) 0.5ML SYR IM ONE (23:35)
[2021-04-23] MEDS ORDERED: ISOVUE-370 76% 100ML VIAL As Ordered ONE (23:44)
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
[2021-04-24] MEDS ORDERED: CEPHALEXIN 500 MG CAP PO ONE (02:20)
[2021-04-24] MEDS ORDERED: KETO10TAB PO (02:22)
[2021-04-24] MEDS ORDERED: CEPH500C PO (02:22)
[2021-04-24 03:16] VITALS: BP 124/85
== END 2021-04-24 03:17 | disposition home or self-care (01) ==
LOC: M ED 19:54
DX: S31.31XA Laceration without foreign body of scrotum and testes, initial encounter (principal); X99.9XXA Assault by unspecified sharp object, initial encounter; Y92.9 Unspecified place or not applicable; Y93.9 Activity, unspecified; Y99.9 Unspecified external cause status; Y07.59 Other non-family member, perpetrator of maltreatment and neglect
CPT/HCPCS: 70450; 71260; 74177; 80047; 90471; 90715; 96374; 99284; J1885; Q9967

== ENCOUNTER → 2021-05-12 | Outpatient (CLI) | payer OTHER ==
[~2021-05-12] MED LIST changes: +CEPH500C PO
[2021-05-12 14:15] LABS: ALBUMIN 3.8 GM/DL (3.2-5.2); ALT/SGPT 35 U/L (12-78); BILIRUBIN,TOTAL 0.7 MG/DL (0.2-1.0); BLOOD UREA NITROGEN 18 MG/DL (7-18); CALCIUM LEVEL 8.2 MG/DL (8.5-10.1); CARBON DIOXIDE LEVEL 28 MEQ/L (21-32); CHLORIDE LEVEL 109 MEQ/L (98-107); CREATININE FOR GFR 1.27 MG/DL (0.70-1.30); GLOMERULAR FILTRATION RATE > 60.0 (>60); GLUCOSE, FASTING 94 MG/DL (70-100); POTASSIUM SERUM 4.5 MEQ/L (3.5-5.1); SODIUM LEVEL 140 MEQ/L (136-145); TOTAL PROTEIN 6.9 GM/DL (6.4-8.2)
== END ==
LOC: M PLALAB 11:33
PROVIDERS: ATTEND Physician Assistant Medical
DX: K21.9 Gastro-esophageal reflux disease without esophagitis (principal); R19.7 Diarrhea, unspecified

== ENCOUNTER → 2021-07-15 | Outpatient (CLI) | payer OTHER ==
[~2021-07-15] MED LIST changes: +E-Z-GAS II EFFERVESCENT PACKET (SODIUM BICARB./CITRIC ACID/SIMETHICONE) As Ordered ONE; +E-Z-HD 98% w/w 340GM SUSP BTL As Ordered ONE; +E-Z-PAQUE 96% w/w SUSP 176GM BTL As Ordered ONE
--- NOTE | 2021-07-15 16:47 | REP ---
INDICATION: DYSPHAGIA, GERD. COMPARISON: None. TECHNIQUE: This procedure was performed under the direct supervision of Dr. Molina. Images were reviewed with Dr. Molina. Liquid barium and gas producing granules were given in the erect position as well as liquid barium in the prone oblique positions in order to perform a double contrast esophagram examination. A combination of fluoroscopy, spot films and last image hold technology was utilized. 0.6 minutes of fluoro time was utilized for this procedure. FINDINGS: A single view PA chest x-ray is submitted as a geologist film. The superior mediastinal structures are midline. The heart size is within normal limits. The lungs are clear. The oral and pharyngeal stages of deglutition are unremarkable. Esophageal transport is prompt and efficient and there is no esophagitis, stricture or mucosal ring. There is a sliding-type hiatal hernia.There is gastroesophageal reflux demonstrated to the level of the tesha. IMPRESSION: There is a sliding-type hiatal hernia. There is gastroesophageal reflux demonstrated to the level of the tesha. <Electronically signed by Enrique Bird > 07/15/21 1540 <Electronically signed by Adonay Molina > 07/15/21 1645
== END ==
LOC: M RAD 08:43
PROVIDERS: ATTEND Physician Assistant Medical
DX: K21.9 Gastro-esophageal reflux disease without esophagitis (principal); R13.10 Dysphagia, unspecified

== ENCOUNTER → 2021-08-02 | Outpatient (REF) ==
[~2021-08-02] MED LIST changes: +DOXY-443 PO; -DOXY1CAP62 PO; -E-Z-GAS II EFFERVESCENT PACKET (SODIUM BICARB./CITRIC ACID/SIMETHICONE) As Ordered ONE; -E-Z-HD 98% w/w 340GM SUSP BTL As Ordered ONE; -E-Z-PAQUE 96% w/w SUSP 176GM BTL As Ordered ONE
[2021-08-02 13:09] LABS: RSV AMPLIFICATION NEGATIVE (NEGATIVE)
== END ==
LOC: M EMP 11:59
PROVIDERS: ATTEND Family Medicine
DX: Z11.52 Encounter for screening for COVID-19 (principal)

== ENCOUNTER → 2021-10-07 | Outpatient (CLI) | payer OTHER | LOC: M LABSMTC 09:26 | PROVIDERS: ATTEND Anesthesiology | DX: Z01.818 Encounter for other preprocedural examination (principal); Z11.52 Encounter for screening for COVID-19 ==

== ENCOUNTER 2021-10-12 12:02 | Day surgery (SDC) | payer OTHER ==
[~2021-10-12] VITALS: Ht 203.2 cm; Wt 127.0 kg
[~2021-10-12 12:02] MED LIST changes: -MONT10TA10 PO; +MONT10TA97 PO; +NS 1,000 ML IV ONE
[2021-10-12] MEDS ORDERED: LIDOCAINE 2% 100MG/5ML SDV (FOR ANES.) As Ordered ONE (13:52)
[2021-10-12] MEDS ORDERED: fentaNYL 100 MCG/2 ML INJECTION (J3010) As Ordered ONE (13:52)
[2021-10-12] MEDS ORDERED: propofoL 200 MG/20 ML VIAL As Ordered ONE (13:53)
[2021-10-12 14:30] VITALS: BP 143/94
== END 2021-10-12 14:51 | disposition home or self-care (01) ==
LOC: M OPP 12:02
PROVIDERS: ATTEND Internal Medicine Gastroenterology
DX: K21.00 Gastro-esophageal reflux disease with esophagitis, without bleeding (principal); K44.9 Diaphragmatic hernia without obstruction or gangrene; R13.10 Dysphagia, unspecified; R12 Heartburn; Z79.82 Long term (current) use of aspirin; Z79.899 Other long term (current) drug therapy
CPT/HCPCS: 43239; 88305; J3010

== ENCOUNTER 2021-11-20 10:17 | Emergency (ER) | payer OTHER ==
[~2021-11-20] VITALS: Ht 203.2 cm; Wt 126.3 kg
[~2021-11-20 10:17] MED LIST changes: -NS 1,000 ML IV ONE
[2021-11-20 13:12] LABS: GC DNA AMPLIFICATION NEGATIVE (NEGATIVE)
[2021-11-20] MEDS ORDERED: TAMSULOSIN 0.4 MG CAP PO ONE (14:00)
[2021-11-20] MEDS ORDERED: FLOM0.4C39 PO (14:06)
[2021-11-20 14:16] VITALS: BP 125/76
== END 2021-11-20 14:16 | disposition home or self-care (01) ==
LOC: M ED 10:17
DX: N20.0 Calculus of kidney (principal); M51.37 Other intervertebral disc degeneration, lumbosacral region; K42.9 Umbilical hernia without obstruction or gangrene

== ENCOUNTER 2021-12-19 18:09 | Emergency (ER) | payer OTHER ==
[~2021-12-19] VITALS: Ht 203.2 cm; Wt 122.8 kg
[2021-12-19] MEDS ORDERED: ONDANSETRON 4MG/2ML VIAL As Ordered ONE (18:43)
[2021-12-19] MEDS ORDERED: ONDANSETRON 4MG/2ML VIAL IV ONE (18:45)
[2021-12-19] MEDS ORDERED: NS 1,000 ML IV ONE (18:45)
[2021-12-19 18:49] LABS: BASO % 0.3 % (0.0-1.0); EOS # 0.3 10^3/uL (0.0-0.5); EOS % 2.9 % (0.0-3.0); HEMATOCRIT 46.7 % (42.0-52.0); HEMOGLOBIN 15.5 g/dl (13.5-17.5); LYMPH # 2.5 10^3/uL (1.5-5.0); LYMPH % 27.4 % (24.0-44.0); MEAN CORPUSCULAR HEMOGLOBIN 29.3 pg (27.0-33.0); MEAN CORPUSCULAR HGB CONC 33.2 g/dl (32.0-36.5); MEAN CORPUSCULAR VOLUME 88.3 fl (80.0-96.0); MONO # 0.7 10^3/uL (0.0-0.8); MONO % 7.8 % (2.0-8.0); NEUTROPHILS # 5.5 10^3/uL (1.5-8.5); NEUTROPHILS % 61.2 % (36.0-66.0); PLATELET COUNT, AUTOMATED 226 10^3/uL (150-450); RED BLOOD COUNT 5.29 10^6/uL (4.30-6.10)
[2021-12-19] MEDS ORDERED: TAMS1CAP17 (19:02)
[2021-12-19] MEDS ORDERED: PANT20TA6 (19:02)
[2021-12-19] MEDS ORDERED: FLUT1INH3 (19:02)
[2021-12-19] MEDS ORDERED: INCR1INH (19:02)
[2021-12-19 19:12] LABS: ALBUMIN 4.1 GM/DL (3.2-5.2); BILIRUBIN,DIRECT 0.2 MG/DL (0.0-0.2); TOTAL PROTEIN 7.4 GM/DL (6.4-8.2)
[2021-12-19] MEDS ORDERED: KETOROLAC 30 MG/ML 1ML VIAL IV ONE (19:15)
[2021-12-19] MEDS ORDERED: FLOM0.4C39 PO (21:47)
[2021-12-19] MEDS ORDERED: ONDA4TAB6 PO (21:47)
[2021-12-19] MEDS ORDERED: KETO10TAB PO (21:50)
[2021-12-19] MEDS ORDERED: HYDR-3713 PO (21:50)
[2021-12-19] MEDS ORDERED: NORCO, ANEXSIA 5/325MG TABLET (HYDROcodone/ACETAMINOPHEN) PO ONE (21:55)
[2021-12-19 22:18] VITALS: BP 133/74
== END 2021-12-19 22:20 | disposition home or self-care (01) ==
LOC: M ED 18:09
DX: N23 Unspecified renal colic (principal); Z79.899 Other long term (current) drug therapy
CPT/HCPCS: 36415; 76775; 80047; 80076; 81001; 83690; 85025; 87086; 96361; 96374; 96375; 99284; J1885; J2405

== ENCOUNTER → 2021-12-27 | Outpatient (CLI) | payer OTHER ==
[~2021-12-27] MED LIST changes: +FLUT1INH3; +INCR1INH; +PANT20TA6; +TAMS1CAP17
[2021-12-27 13:34] LABS: BASO % 0.2 % (0.0-1.0); EOS # 0.2 10^3/uL (0.0-0.5); EOS % 2.1 % (0.0-3.0); HEMATOCRIT 44.7 % (42.0-52.0); HEMOGLOBIN 14.6 g/dl (13.5-17.5); LYMPH # 1.8 10^3/uL (1.5-5.0); MEAN CORPUSCULAR HEMOGLOBIN 29.3 pg (27.0-33.0); MEAN CORPUSCULAR HGB CONC 32.7 g/dl (32.0-36.5); MEAN CORPUSCULAR VOLUME 89.6 fl (80.0-96.0); MONO # 0.7 10^3/uL (0.0-0.8); MONO % 8.1 % (2.0-8.0); NEUTROPHILS # 5.4 10^3/uL (1.5-8.5); NEUTROPHILS % 67.1 % (36.0-66.0); PLATELET COUNT, AUTOMATED 198 10^3/uL (150-450); RED BLOOD COUNT 4.99 10^6/uL (4.30-6.10); WHITE BLOOD COUNT 8.1 10^3/uL (4.0-10.0)
[2021-12-27 14:18] LABS: BLOOD UREA NITROGEN 21 MG/DL (7-18); CREATININE FOR GFR 1.46 MG/DL (0.70-1.30); GLUCOSE, FASTING 99 MG/DL (70-100)
[2021-12-27 14:19] LABS: ALBUMIN 4.2 GM/DL (3.2-5.2); ALT/SGPT 30 U/L (12-78); BILIRUBIN,TOTAL 1.2 MG/DL (0.2-1.0); CALCIUM LEVEL 8.8 MG/DL (8.5-10.1); CARBON DIOXIDE LEVEL 30 MEQ/L (21-32); CHLORIDE LEVEL 109 MEQ/L (98-107); CHOLESTEROL LEVEL 144 MG/DL (<200); CHOLESTEROL RISK RATIO 3.692 (<5); FREE T4 1.17 NG/DL (0.76-1.46); GLOMERULAR FILTRATION RATE 55.1 (>60); HDL CHOLESTEROL 39 MG/DL (>40); LDL CHOLESTEROL 88 MG/DL (<100); NON-HDL-C 105 MG/DL; POTASSIUM SERUM 4.8 MEQ/L (3.5-5.1); SODIUM LEVEL 142 MEQ/L (136-145); TOTAL PROTEIN 7.1 GM/DL (6.4-8.2); TRIGLYCERIDES LEVEL 87 MG/DL (<150)
[2021-12-27 14:22] LABS: HEPATITIS B SURFACE ANTIBODY POSITIVE (POSITIVE)
[2021-12-27 14:32] LABS: HEPATITIS B SURFACE ANTIGEN NEGATIVE (NEGATIVE)
[2021-12-27 15:00] LABS: HEPATITIS C VIRUS ABY INDEX 0.2 INDEX (<0.8); HIV 1&2 SCREEN CENTAUR NEGATIVE (NEGATIVE)
== END ==
LOC: M PLALAB 08:28
PROVIDERS: ATTEND Physician Assistant Medical
DX: Z72.51 High risk heterosexual behavior (principal)

== ENCOUNTER → 2022-01-25 | Outpatient (CLI) | payer OTHER ==
[2022-01-25 16:51] LABS: HEMATOCRIT 44.8 % (42.0-52.0)
== END ==
LOC: M PLALAB 15:07
PROVIDERS: ATTEND Physician Assistant Medical
DX: R44.3 Hallucinations, unspecified (principal)

== ENCOUNTER 2022-02-19 00:54 | Emergency (ER) | payer OTHER, MEDICAID ==
[~2022-02-19] VITALS: Ht 203.2 cm; Wt 125.0 kg
[2022-02-19 01:05] VITALS: BP 132/90
[2022-02-19] MEDS ORDERED: ABIL1TAB11 PO (01:05)
== END 2022-02-19 01:29 | disposition left against medical advice (07) ==
LOC: M ED 00:54
DX: Z53.21 Procedure and treatment not carried out due to patient leaving prior to being seen by health care provider (principal)

== ENCOUNTER 2022-05-18 11:03 | Emergency (ER) | payer OTHER, MEDICAID ==
[~2022-05-18] VITALS: Ht 203.2 cm; Wt 137.7 kg
[~2022-05-18 11:03] MED LIST changes: +ABIL1TAB11 PO; -ASMA110A INH; +MOME110A INH
[2022-05-18 11:05] VITALS: BP 173/98
[2022-05-18] MEDS ORDERED: OLAN1TAB16 (11:11)
[2022-05-18] MEDS ORDERED: INCR1INH (11:11)
[2022-05-18] MEDS ORDERED: SERT50TA29 (11:11)
[2022-05-18] MEDS ORDERED: ALBU8.5H (11:11)
[2022-05-18] MEDS ORDERED: KETOROLAC 60MG 2ML VIAL IM ONE (13:05)
[2022-05-18] MEDS ORDERED: IBUP80TA PO (13:59)
== END 2022-05-18 14:06 | disposition home or self-care (01) ==
LOC: M ED 11:03
DX: M51.37 Other intervertebral disc degeneration, lumbosacral region (principal); J44.9 Chronic obstructive pulmonary disease, unspecified; J45.909 Unspecified asthma, uncomplicated; M48.00 Spinal stenosis, site unspecified; Z87.442 Personal history of urinary calculi; Z79.899 Other long term (current) drug therapy
CPT/HCPCS: 72110; 96372; 99282; J1885

== ENCOUNTER 2022-08-05 20:17 | Emergency (ER) | payer MEDICAID, OTHER ==
[~2022-08-05] VITALS: Ht 203.2 cm; Wt 140.3 kg
[~2022-08-05 20:17] MED LIST changes: +IBUP80TA PO; +OLAN1TAB16; +SERT50TA29
[2022-08-05] MEDS ORDERED: METOCLOPRAMIDE INJ 10MG/2ML VIAL (J2765 PER 1) IV ONE (22:25)
[2022-08-05] MEDS ORDERED: diphenhydrAMINE 50MG/ML VIAL (J1200) IV STA (22:25)
[2022-08-05] MEDS ORDERED: ACETAMINOPHEN 325 MG TAB PO ONE (22:25)
[2022-08-05] MEDS ORDERED: NS 1,000 ML IV ONE (22:25)
[2022-08-05] MEDS ORDERED: KETOROLAC 30 MG/ML 1ML VIAL IV ONE (23:05)
[2022-08-06 00:13] VITALS: BP 145/80
== END 2022-08-06 00:15 | disposition home or self-care (01) ==
LOC: M ED 20:17
DX: R51.9 Headache, unspecified (principal); M25.512 Pain in left shoulder; X50.0XXA Overexertion from strenuous movement or load, initial encounter; Y93.B3 Activity, free weights; J44.9 Chronic obstructive pulmonary disease, unspecified; K21.9 Gastro-esophageal reflux disease without esophagitis; M54.50 Low back pain, unspecified; Z79.51 Long term (current) use of inhaled steroids; Z79.899 Other long term (current) drug therapy
CPT/HCPCS: 70450; 73030; 96361; 96374; 96375; 99284; J1200; J1885; J2765

== ENCOUNTER → 2022-10-13 | Outpatient (CLI) | payer OTHER | LOC: M PLAIMG 09-30 08:02 | PROVIDERS: ATTEND Physician Assistant Medical | DX: M25.512 Pain in left shoulder (principal) ==

== ENCOUNTER → 2022-12-29 | Outpatient (CLI) | payer OTHER | LOC: M SLEEP HO 11:25 | PROVIDERS: ATTEND Internal Medicine Cardiovascular Disease | DX: G47.33 Obstructive sleep apnea (adult) (pediatric) (principal); R00.2 Palpitations ==

== ENCOUNTER → 2023-02-16 | Outpatient (CLI) | payer OTHER ==
[~2023-02-16] MED LIST changes: +ALBU8.5H INH; +ASPI81CH33 PO; +FLUT1INH2 IN; +INCR1INH INH; -OLAN1TAB16; +OLAN1TAB16 PO; -PANT20TA6; +PANT20TA6 PO; -SERT50TA29; +SERT50TA29 PO
[2023-02-16 13:17] LABS: INR 0.89; PROTHROMBIN TIME 12.2 SECONDS (12.5-14.5)
[2023-02-16 13:18] LABS: PARTIAL THROMBOPLASTIN TIME 30.5 SECONDS (24.8-34.2)
[2023-02-16 13:41] LABS: BASO % 0.4 % (0.0-1.0); EOS # 0.1 10^3/uL (0.0-0.5); EOS % 1.8 % (0.0-3.0); HEMATOCRIT 45.5 % (42.0-52.0); HEMOGLOBIN 14.9 g/dl (13.5-17.5); LYMPH # 1.7 10^3/uL (1.5-5.0); LYMPH % 22.2 % (24.0-44.0); MEAN CORPUSCULAR HEMOGLOBIN 29.2 pg (27.0-33.0); MEAN CORPUSCULAR HGB CONC 32.7 g/dl (32.0-36.5); MONO # 0.5 10^3/uL (0.0-0.8); NEUTROPHILS # 5.3 10^3/uL (1.5-8.5); NEUTROPHILS % 68.2 % (36.0-66.0); PLATELET COUNT, AUTOMATED 201 10^3/uL (150-450); RED BLOOD COUNT 5.11 10^6/uL (4.30-6.10); WHITE BLOOD COUNT 7.8 10^3/uL (4.0-10.0)
[2023-02-16 14:10] LABS: ALBUMIN 3.9 G/DL (3.2-5.2); ALKALINE PHOSPHATASE 126 U/L (46-116); ALT/SGPT 56 U/L (7.0-40); AST/SGOT 31 U/L (<34); BILIRUBIN,TOTAL 1.1 MG/DL (0.3-1.2); BLOOD UREA NITROGEN 16 MG/DL (9-23); CALCIUM LEVEL 8.7 MG/DL (8.5-10.1); CARBON DIOXIDE LEVEL 31 MMOL/L (20-31); CHLORIDE LEVEL 106 MMOL/L (98-107); CREATININE FOR GFR 1.24 MG/DL (0.70-1.30); GLOMERULAR FILTRATION RATE > 60.0 (>60); GLUCOSE, FASTING 97 MG/DL (60-100); POTASSIUM SERUM 4.3 MMOL/L (3.5-5.1); SODIUM LEVEL 141 MMOL/L (136-145); TOTAL PROTEIN 6.7 G/DL (5.7-8.2)
== END ==
LOC: M PLALAB 10:41
PROVIDERS: ATTEND Family Medicine
DX: Z01.810 Encounter for preprocedural cardiovascular examination (principal); Z79.899 Other long term (current) drug therapy

== ENCOUNTER 2023-02-17 08:40 | Day surgery (SDC) | payer OTHER ==
[~2023-02-17] VITALS: Ht 203.2 cm; Wt 134.0 kg
[~2023-02-17 08:40] MED LIST changes: +TRANEXAMIC ACID 100 MG/ML 10ML VIAL IV ONE; +TRANEXAMIC ACID INJection 1,000 MG in NS 100 ML IV ONE; +oxyCODONE 5MG TAB PO ONE
[2023-02-17] MEDS ORDERED: LR 1,000 ML IV SCH ×2 (09:10→12:50)
[2023-02-17] MEDS ORDERED: LIDOCAINE 1% SDV 5ML VIAL PN ONE (09:25)
[2023-02-17] MEDS ORDERED: ROPIvacaine 0.5% 30ML VIAL PN ONE (09:25)
[2023-02-17] MEDS ORDERED: LIDOCAINE 1% SDV 30ML VIAL As Ordered ONE (09:51)
[2023-02-17] MEDS ORDERED: EPINEPHrine 1MG/ML INJ 30ML MD-VIAL As Ordered ONE (09:51)
[2023-02-17] MEDS ORDERED: ceFAZolin SOD 3 GM in IV 1 EA IV ONE (10:05)
[2023-02-17] MEDS: fentaNYL 100 MCG/2 ML INJECTION IV PRN ×2 (10:06→10:10)
[2023-02-17] MEDS: MIDAZOLAM INJ 2MG/2ML VIAL IV PRN ×2 (10:07→10:09)
[2023-02-17] MEDS ORDERED: TRANEXAMIC ACID 100 MG/ML 10ML VIAL As Ordered ONE (10:08)
[2023-02-17] MEDS ORDERED: ceFAZolin SOD 1 GM in D5W MINI-BAG PLUS 50 ML IV ONE (10:10)
[2023-02-17] MEDS ORDERED: ceFAZolin SOD 2 GM in IV 1 EA IV ONE (10:10)
[2023-02-17] MEDS ORDERED: MIDAZOLAM INJ 2MG/2ML VIAL As Ordered ONE (10:56)
[2023-02-17] MEDS ORDERED: METOCLOPRAMIDE INJ 10MG/2ML VIAL As Ordered ONE (10:56)
[2023-02-17] MEDS ORDERED: KETOROLAC 60MG 2ML VIAL As Ordered ONE (10:56)
[2023-02-17] MEDS ORDERED: ROCURONIUM BROMIDE 50MG/5ML VIAL As Ordered ONE (10:56)
[2023-02-17] MEDS ORDERED: SUGAMMADEX SODIUM 500 MG/5 ML VIAL (BRIDION) As Ordered ONE (10:56)
[2023-02-17] MEDS ORDERED: propofoL 200 MG/20 ML VIAL As Ordered ONE (10:56)
[2023-02-17] MEDS ORDERED: ONDANSETRON 4MG 2ML VIAL As Ordered ONE (10:56)
[2023-02-17] MEDS ORDERED: LIDOCAINE 2% 100MG/5ML SDV (FOR ANES.) As Ordered ONE (10:56)
[2023-02-17] MEDS ORDERED: fentaNYL 100 MCG/2 ML INJECTION As Ordered ONE ×2 (10:56→10:58)
[2023-02-17] MEDS ORDERED: HYDR-3713 PO (12:49)
[2023-02-17] MEDS ORDERED: fentaNYL 100 MCG/2 ML INJECTION IV PRN (12:50)
[2023-02-17] MEDS ORDERED: ONDANSETRON 4MG 2ML VIAL IV PRN (12:50)
[2023-02-17] MEDS ORDERED: oxyCODONE 5MG TAB PO PRN (12:50)
[2023-02-17] MEDS ORDERED: HYDROMORPHONE HCL 0.5 MG/ 0.5 ML SYRINGE IV PRN (12:50)
[2023-02-17 14:35] VITALS: BP 157/89
== END 2023-02-17 14:36 | disposition home or self-care (01) ==
LOC: M SDC 08:40
PROVIDERS: ATTEND Orthopaedic Surgery
DX: S43.432A Superior glenoid labrum lesion of left shoulder, initial encounter (principal); M25.512 Pain in left shoulder; R13.10 Dysphagia, unspecified; K63.5 Polyp of colon; F41.9 Anxiety disorder, unspecified; I20.9 Angina pectoris, unspecified; F32.A Depression, unspecified; F20.9 Schizophrenia, unspecified; J44.9 Chronic obstructive pulmonary disease, unspecified; G47.33 Obstructive sleep apnea (adult) (pediatric); Z79.899 Other long term (current) drug therapy; Z79.82 Long term (current) use of aspirin; Z79.51 Long term (current) use of inhaled steroids
CPT/HCPCS: 29807; 29828; 64415; C1713; J0171; J0690; J1100; J1885; J2250; J2405; J2765; J3010

== ENCOUNTER 2023-02-25 04:21 | Emergency (ER) | payer OTHER ==
[~2023-02-25] VITALS: Ht 203.2 cm; Wt 135.2 kg
[~2023-02-25 04:21] MED LIST changes: -TRANEXAMIC ACID 100 MG/ML 10ML VIAL IV ONE; -TRANEXAMIC ACID INJection 1,000 MG in NS 100 ML IV ONE; -oxyCODONE 5MG TAB PO ONE
[2023-02-25 05:07] LABS: BASO % 0.1 % (0.0-1.0); EOS # 0.3 10^3/uL (0.0-0.5); EOS % 3.8 % (0.0-3.0); HEMATOCRIT 41.1 % (42.0-52.0); HEMOGLOBIN 13.7 g/dl (13.5-17.5); LYMPH # 2.1 10^3/uL (1.5-5.0); LYMPH % 27.2 % (24.0-44.0); MEAN CORPUSCULAR HEMOGLOBIN 29.1 pg (27.0-33.0); MEAN CORPUSCULAR HGB CONC 33.3 g/dl (32.0-36.5); MEAN CORPUSCULAR VOLUME 87.4 fl (80.0-96.0); MONO # 0.7 10^3/uL (0.0-0.8); MONO % 8.7 % (2.0-8.0); NEUTROPHILS # 4.6 10^3/uL (1.5-8.5); NEUTROPHILS % 59.7 % (36.0-66.0); PLATELET COUNT, AUTOMATED 219 10^3/uL (150-450); WHITE BLOOD COUNT 7.7 10^3/uL (4.0-10.0)
[2023-02-25 05:19] LABS: ERYTHROCYTE SEDIMENTATION RATE 25 mm/hr (0-15)
[2023-02-25 06:52] LABS: BLOOD UREA NITROGEN 21 MG/DL (9-23); CALCIUM LEVEL 8.1 MG/DL (8.5-10.1); CARBON DIOXIDE LEVEL 26 MMOL/L (20-31); CHLORIDE LEVEL 108 MMOL/L (98-107); CREATININE FOR GFR 1.19 MG/DL (0.70-1.30); GLOMERULAR FILTRATION RATE > 60.0 (>60); GLUCOSE, FASTING 98 MG/DL (60-100); POTASSIUM SERUM 4.3 MMOL/L (3.5-5.1); SODIUM LEVEL 141 MMOL/L (136-145)
[2023-02-25] MEDS ORDERED: MORPHINE 4 MG/ML 1ML VIAL IV ONE (06:55)
[2023-02-25] MEDS ORDERED: ANUSOL HC CREAM 30GM TOP ONE (08:50)
[2023-02-25 09:29] LABS: INR 0.92; PROTHROMBIN TIME 12.6 SECONDS (12.5-14.5)
[2023-02-25 09:30] LABS: PARTIAL THROMBOPLASTIN TIME 28.6 SECONDS (24.8-34.2)
[2023-02-25 09:34] VITALS: BP 137/77
[2023-02-25] MEDS ORDERED: ELIQ5TAB PO (09:53)
[2023-02-25] MEDS ORDERED: APIXABAN 5 MG TAB (ELIQUIS) PO ONE (10:00)
== END 2023-02-25 10:22 | disposition home or self-care (01) ==
LOC: M ED 04:21
DX: I82.622 Acute embolism and thrombosis of deep veins of left upper extremity (principal); L25.9 Unspecified contact dermatitis, unspecified cause

== ENCOUNTER → 2023-05-19 | Outpatient (CLI) | payer OTHER ==
[~2023-05-19] MED LIST changes: +ELIQ5TAB PO
[2023-05-19 14:15] LABS: BASO % 0.5 % (0.0-1.0); EOS # 0.1 10^3/uL (0.0-0.5); EOS % 1.5 % (0.0-3.0); HEMATOCRIT 45.7 % (42.0-52.0); HEMOGLOBIN 14.9 g/dl (13.5-17.5); LYMPH # 1.6 10^3/uL (1.5-5.0); LYMPH % 26.2 % (24.0-44.0); MEAN CORPUSCULAR HEMOGLOBIN 28.7 pg (27.0-33.0); MEAN CORPUSCULAR HGB CONC 32.6 g/dl (32.0-36.5); MEAN CORPUSCULAR VOLUME 87.9 fl (80.0-96.0); MONO # 0.5 10^3/uL (0.0-0.8); MONO % 8.3 % (2.0-8.0); NEUTROPHILS # 3.8 10^3/uL (1.5-8.5); NEUTROPHILS % 63.2 % (36.0-66.0); PLATELET COUNT, AUTOMATED 214 10^3/uL (150-450)
[2023-05-19 14:16] LABS: ALKALINE PHOSPHATASE 115 U/L (46-116); ALT/SGPT 39 U/L (7.0-40); AST/SGOT 19 U/L (<34); BILIRUBIN,TOTAL 1.5 MG/DL (0.3-1.2); BLOOD UREA NITROGEN 16 MG/DL (9-23); CALCIUM LEVEL 8.5 MG/DL (8.5-10.1); CARBON DIOXIDE LEVEL 29 MMOL/L (20-31); CHLORIDE LEVEL 106 MMOL/L (98-107); CHOLESTEROL LEVEL 155 MG/DL (<200); CHOLESTEROL RISK RATIO 4.11 (<5); CREATININE FOR GFR 1.16 MG/DL (0.70-1.30); GLOMERULAR FILTRATION RATE > 60.0 (>60); GLUCOSE, FASTING 89 MG/DL (60-100); HDL CHOLESTEROL 37.7 MG/DL (>40); LDL CHOLESTEROL 90.1 MG/DL (<100); NON-HDL-C 117.3 MG/DL; POTASSIUM SERUM 4.5 MMOL/L (3.5-5.1); SODIUM LEVEL 140 MMOL/L (136-145); TOTAL PROTEIN 6.9 G/DL (5.7-8.2); TRIGLYCERIDES LEVEL 136 MG/DL (<150)
[2023-05-19 14:58] LABS: HEMOGLOBIN A1c 5.3 % (4.0-6.0)
== END ==
LOC: M PLALAB 09:37
PROVIDERS: ATTEND Psychiatry & Neurology Psychiatry
DX: F28 Other psychotic disorder not due to a substance or known physiological condition (principal); F41.1 Generalized anxiety disorder

== ENCOUNTER 2023-07-29 06:50 | Emergency (ER) | payer MEDICAID, OTHER ==
[~2023-07-29] VITALS: Ht 203.2 cm; Wt 131.0 kg
[~2023-07-29 06:50] MED LIST changes: +LORA-1041 PO; -LORA-674 PO
[2023-07-29 07:47] LABS: HEMATOCRIT 40.6 % (42.0-52.0); HEMOGLOBIN 14.2 g/dl (13.5-17.5); MEAN CORPUSCULAR VOLUME 82.9 fl (80.0-96.0); PLATELET COUNT, AUTOMATED 217 10^3/uL (150-450); WHITE BLOOD COUNT 9.3 10^3/uL (4.0-10.0)
[2023-07-29] MEDS ORDERED: KETOROLAC 30 MG/ML 1ML VIAL IV ONE (09:10)
[2023-07-29] MEDS ORDERED: FLOM0.4C39 PO (10:00)
[2023-07-29] MEDS ORDERED: KETO10TAB PO (10:00)
[2023-07-29 10:05] VITALS: BP 139/96; TEMP 97.1; O2SAT 100
== END 2023-07-29 10:11 | disposition home or self-care (01) ==
LOC: M ED 06:50
DX: N20.0 Calculus of kidney (principal); Z87.442 Personal history of urinary calculi; Z86.718 Personal history of other venous thrombosis and embolism; J45.909 Unspecified asthma, uncomplicated; Z79.82 Long term (current) use of aspirin; Z79.899 Other long term (current) drug therapy
CPT/HCPCS: 74176; 80047; 81001; 85027; 96374; 99284; J1885

== ENCOUNTER 2023-08-03 22:04 | Emergency (ER) | payer OTHER ==
[~2023-08-03] VITALS: Ht 203.2 cm; Wt 130.3 kg
[2023-08-04 05:44] LABS: BASO % 0.2 % (0.0-1.0); EOS # 0.2 10^3/uL (0.0-0.5); HEMATOCRIT 39.3 % (42.0-52.0); LYMPH # 1.7 10^3/uL (1.5-5.0); LYMPH % 28.4 % (24.0-44.0); MEAN CORPUSCULAR HEMOGLOBIN 28.8 pg (27.0-33.0); MEAN CORPUSCULAR HGB CONC 33.1 g/dl (32.0-36.5); MEAN CORPUSCULAR VOLUME 87.1 fl (80.0-96.0); MONO # 0.5 10^3/uL (0.0-0.8); MONO % 9.1 % (2.0-8.0); NEUTROPHILS # 3.5 10^3/uL (1.5-8.5); NEUTROPHILS % 59.1 % (36.0-66.0); PLATELET COUNT, AUTOMATED 212 10^3/uL (150-450); RED BLOOD COUNT 4.51 10^6/uL (4.30-6.10); WHITE BLOOD COUNT 5.9 10^3/uL (4.0-10.0)
[2023-08-04 05:55] LABS: INR 1.04; PARTIAL THROMBOPLASTIN TIME 30.1 SECONDS (24.8-34.2); PROTHROMBIN TIME 13.3 SECONDS (12.5-14.5)
[2023-08-04 05:57] LABS: ERYTHROCYTE SEDIMENTATION RATE 26 mm/hr (0-15)
[2023-08-04 06:02] LABS: BLOOD UREA NITROGEN 17 MG/DL (9-23); CARBON DIOXIDE LEVEL 27 MMOL/L (20-31); CHLORIDE LEVEL 109 MMOL/L (98-107); CREATININE FOR GFR 1.44 MG/DL (0.70-1.30); GLOMERULAR FILTRATION RATE 55.5 (>60); GLUCOSE, FASTING 99 MG/DL (60-100); POTASSIUM SERUM 4.2 MMOL/L (3.5-5.1); SODIUM LEVEL 143 MMOL/L (136-145)
[2023-08-04 08:39] LABS: ALBUMIN 3.6 G/DL (3.2-5.2); ALKALINE PHOSPHATASE 115 U/L (46-116); ALT/SGPT 19 U/L (7.0-40); AST/SGOT 15 U/L (<34); BILIRUBIN,DIRECT 0.3 MG/DL (<0.4); BILIRUBIN,TOTAL 0.9 MG/DL (0.3-1.2); TOTAL PROTEIN 6.6 G/DL (5.7-8.2)
[2023-08-04 08:47] LABS: PROCALCITONIN <0.04 ng/ml
[2023-08-04 12:15] VITALS: BP 123/82; TEMP 97.3; O2SAT 96
[2023-08-05 11:10] LABS: ANTINUCLEAR ANTIBODIES DIRECT Negative (Negative)
== END 2023-08-04 12:25 | disposition home or self-care (01) ==
LOC: M ED 22:04
DX: R23.3 Spontaneous ecchymoses (principal); J45.909 Unspecified asthma, uncomplicated; Z86.718 Personal history of other venous thrombosis and embolism; Z87.442 Personal history of urinary calculi; Z79.899 Other long term (current) drug therapy

== ENCOUNTER 2023-11-03 05:54 | Emergency (ER) | payer MEDICAID, OTHER ==
[~2023-11-03] VITALS: Ht 203.2 cm; Wt 129.6 kg
[2023-11-03 08:27] VITALS: BP 140/89; TEMP 97.4; O2SAT 97
== END 2023-11-03 10:32 | disposition left against medical advice (07) ==
LOC: M ED 05:54
DX: Z53.21 Procedure and treatment not carried out due to patient leaving prior to being seen by health care provider (principal)

== ENCOUNTER → 2023-11-06 | Outpatient (CLI) | payer OTHER | LOC: M RAD 09:45 | PROVIDERS: ATTEND Physician Assistant Medical | DX: R52 Pain, unspecified (principal) ==

== ENCOUNTER 2023-11-07 06:18 | Emergency (ER) | payer MEDICAID, OTHER ==
[~2023-11-07] VITALS: Ht 203.2 cm; Wt 130.0 kg
[2023-11-07 06:19] VITALS: BP 126/87; TEMP 97.3; O2SAT 96
== END 2023-11-07 09:45 | disposition left against medical advice (07) ==
LOC: M ED 06:18
DX: Z53.21 Procedure and treatment not carried out due to patient leaving prior to being seen by health care provider (principal)

== ENCOUNTER → 2023-11-07 | Outpatient (REF) | payer OTHER | LOC: M LAB REF 12:17 | PROVIDERS: ATTEND Physician Assistant Medical | DX: J02.9 Acute pharyngitis, unspecified (principal) ==

== ENCOUNTER → 2023-11-20 | Outpatient (CLI) | payer OTHER ==
[2023-11-20 14:04] LABS: BASO % 0.1 % (0.0-1.0); EOS # 0.1 10^3/uL (0.0-0.5); EOS % 1.7 % (0.0-3.0); HEMATOCRIT 44.7 % (42.0-52.0); HEMOGLOBIN 14.5 g/dl (13.5-17.5); LYMPH # 1.6 10^3/uL (1.5-5.0); LYMPH % 22.4 % (24.0-44.0); MEAN CORPUSCULAR HGB CONC 32.4 g/dl (32.0-36.5); MEAN CORPUSCULAR VOLUME 89.4 fl (80.0-96.0); MONO # 0.5 10^3/uL (0.0-0.8); MONO % 7.5 % (2.0-8.0); NEUTROPHILS # 4.7 10^3/uL (1.5-8.5); NEUTROPHILS % 67.9 % (36.0-66.0); PLATELET COUNT, AUTOMATED 206 10^3/uL (150-450)
[2023-11-20 14:17] LABS: ERYTHROCYTE SEDIMENTATION RATE 12 mm/hr (0-15)
[2023-11-20 14:41] LABS: HEPATITIS B SURFACE ANTIBODY POSITIVE (POSITIVE)
[2023-11-20 14:43] LABS: ALBUMIN 3.8 G/DL (3.2-5.2); ALKALINE PHOSPHATASE 117 U/L (46-116); ALT/SGPT 22 U/L (7.0-40); AST/SGOT 12 U/L (<34); BILIRUBIN,TOTAL 1.2 MG/DL (0.3-1.2); BLOOD UREA NITROGEN 18 MG/DL (9-23); CALCIUM LEVEL 8.1 MG/DL (8.5-10.1); CARBON DIOXIDE LEVEL 30 MMOL/L (20-31); CHLORIDE LEVEL 108 MMOL/L (98-107); CREATININE FOR GFR 1.24 MG/DL (0.70-1.30); GLOMERULAR FILTRATION RATE > 60.0 (>60); GLUCOSE, FASTING 92 MG/DL (60-100); POTASSIUM SERUM 4.5 MMOL/L (3.5-5.1); SODIUM LEVEL 141 MMOL/L (136-145); TOTAL PROTEIN 6.6 G/DL (5.7-8.2)
[2023-11-20 15:06] LABS: HIV 1&2 SCREEN NEGATIVE (NEGATIVE)
[2023-11-20 15:15] LABS: HEPATITIS C VIRUS ABY INDEX 0.02 INDEX (<0.8)
== END ==
LOC: M PLALAB 10:22
PROVIDERS: ATTEND Physician Assistant Medical
DX: M47.812 Spondylosis without myelopathy or radiculopathy, cervical region (principal); F41.1 Generalized anxiety disorder; F20.0 Paranoid schizophrenia; F33.1 Major depressive disorder, recurrent, moderate; Z72.51 High risk heterosexual behavior

== ENCOUNTER 2023-12-16 09:07 | Emergency (ER) | payer MEDICAID, OTHER ==
[~2023-12-16 09:07] MED LIST changes: -FLUT1INH2 IN; +FLUT1INH2 INH
[2023-12-16] MEDS ORDERED: PRED20TA PO (09:40)
[2023-12-16] MEDS ORDERED: AMOX875T2 PO (09:40)
[2023-12-16] MEDS ORDERED: TRAZ1TAB11 PO (09:40)
[2023-12-16] MEDS ORDERED: MELO7.5T35 PO (12:28)
[2023-12-16] MEDS ORDERED: TIZA2TA PO (12:28)
[2023-12-16] MEDS ORDERED: KETO2SHA8 TOP (14:17)
[2023-12-16] MEDS ORDERED: ZITH250T PO (14:17)
[2023-12-16] MEDS ORDERED: DOXY-444 PO (14:21)
== END 2023-12-16 09:30 | disposition left against medical advice (07) ==
LOC: M ED 09:07
DX: Z53.21 Procedure and treatment not carried out due to patient leaving prior to being seen by health care provider (principal)

== ENCOUNTER 2023-12-16 09:21 | Emergency (ER) | payer MEDICAID, OTHER ==
[~2023-12-16] VITALS: Ht 203.2 cm; Wt 124.5 kg
[2023-12-16] MEDS ORDERED: TRAZ1TAB11 PO (09:40)
[2023-12-16] MEDS ORDERED: PRED20TA PO (09:40)
[2023-12-16] MEDS ORDERED: AMOX875T2 PO (09:40)
[2023-12-16 11:02] LABS: BASO % 0.1 % (0.0-1.0); EOS % 0.2 % (0.0-3.0); HEMATOCRIT 42.2 % (42.0-52.0); HEMOGLOBIN 14.1 g/dl (13.5-17.5); LYMPH # 0.7 10^3/uL (1.5-5.0); LYMPH % 7.1 % (24.0-44.0); MEAN CORPUSCULAR HGB CONC 33.4 g/dl (32.0-36.5); MEAN CORPUSCULAR VOLUME 86.7 fl (80.0-96.0); MONO # 0.6 10^3/uL (0.0-0.8); MONO % 5.9 % (2.0-8.0); NEUTROPHILS # 8.5 10^3/uL (1.5-8.5); NEUTROPHILS % 85.9 % (36.0-66.0); PLATELET COUNT, AUTOMATED 284 10^3/uL (150-450); RED BLOOD COUNT 4.87 10^6/uL (4.30-6.10); WHITE BLOOD COUNT 9.9 10^3/uL (4.0-10.0)
[2023-12-16] MEDS: diphenhydrAMINE 50MG CAP PO ONE (11:19)
[2023-12-16 11:33] LABS: MAGNESIUM LEVEL 2.2 MG/DL (1.8-2.4)
[2023-12-16 11:37] LABS: THYROID STIMULATING HORMONE 1.438 uIU/ML (0.55-4.78)
[2023-12-16] MEDS ORDERED: TIZA2TA PO (12:28)
[2023-12-16] MEDS ORDERED: MELO7.5T35 PO (12:28)
[2023-12-16] MEDS ORDERED: HOME MED LIST COMPLETE! XX SCH (12:30)
[2023-12-16] MEDS: NS 1,000 ML IV ONE (13:14)
[2023-12-16] MEDS: cefTRIAXone SOD 1 GM in D5W MINI-BAG PLUS 50 ML IV ONE (13:15)
[2023-12-16] MEDS: AZITHROMYCIN INJ 500 MG, VIAL MATE ADAPTER 1 EACH in NS 250 ML IV ONE (13:58)
[2023-12-16] MEDS ORDERED: ZITH250T PO (14:17)
[2023-12-16] MEDS ORDERED: KETO2SHA8 TOP (14:17)
[2023-12-16] MEDS ORDERED: DOXY-444 PO (14:21)
[2023-12-16 15:03] VITALS: BP 130/79; TEMP 98.6; O2SAT 97
== END 2023-12-16 09:30 | disposition home or self-care (01) ==
LOC: M ED 09:21
DX: B36.0 Pityriasis versicolor (principal); J18.9 Pneumonia, unspecified organism; J44.9 Chronic obstructive pulmonary disease, unspecified; N20.0 Calculus of kidney; Z79.51 Long term (current) use of inhaled steroids; Z79.2 Long term (current) use of antibiotics; Z79.899 Other long term (current) drug therapy
CPT/HCPCS: 71046; 80047; 83735; 84443; 85025; 93005; 93041; 96365; 96366; 99285; J0456; J0696

== ENCOUNTER 2023-12-18 08:31 | Emergency (ER) | payer OTHER ==
[~2023-12-18] VITALS: Ht 203.2 cm; Wt 127.2 kg
[2023-12-18 08:31] VITALS: BP 137/80; TEMP 97.2; O2SAT 96
[~2023-12-18 08:31] MED LIST changes: +AMOX875T2 PO; +DOXY-444 PO; +KETO2SHA8 TOP; +MELO7.5T35 PO; +TIZA2TA PO; +TRAZ1TAB11 PO; +ZITH250T PO
== END 2023-12-18 11:02 | disposition left against medical advice (07) ==
LOC: M ED 08:31
DX: Z53.21 Procedure and treatment not carried out due to patient leaving prior to being seen by health care provider (principal)

== ENCOUNTER → 2024-02-15 | Outpatient (CLI) | payer OTHER ==
[~2024-02-15] MED LIST changes: +DOXY-323 PO; +DOXY-440 PO; -DOXY-443 PO; -DOXY-444 PO
== END ==
LOC: M RAD 08:22
PROVIDERS: ATTEND Physician Assistant Medical
DX: Z88.3 Allergy status to other anti-infective agents (principal)

== ENCOUNTER 2024-06-08 20:02 | Emergency (ER) | payer MEDICAID, OTHER ==
[~2024-06-08] VITALS: Ht 203.2 cm; Wt 122.0 kg
[~2024-06-08 20:02] MED LIST changes: +ONDA-282 PO; -ONDA4TAB6 PO
[2024-06-08 20:48] LABS: BASO % 0.4 % (0.0-1.0); EOS # 0.1 10^3/uL (0.0-0.5); EOS % 1.8 % (0.0-3.0); HEMATOCRIT 39.8 % (42.0-52.0); HEMOGLOBIN 13.7 g/dl (13.5-17.5); LYMPH # 2.4 10^3/uL (1.5-5.0); MEAN CORPUSCULAR HEMOGLOBIN 29.5 pg (27.0-33.0); MEAN CORPUSCULAR HGB CONC 34.4 g/dl (32.0-36.5); MEAN CORPUSCULAR VOLUME 85.8 fl (80.0-96.0); MONO # 0.6 10^3/uL (0.0-0.8); NEUTROPHILS # 3.9 10^3/uL (1.5-8.5); NEUTROPHILS % 54.4 % (36.0-66.0); PLATELET COUNT, AUTOMATED 209 10^3/uL (150-450); RED BLOOD COUNT 4.64 10^6/uL (4.30-6.10); WHITE BLOOD COUNT 7.1 10^3/uL (4.0-10.0)
[2024-06-08 21:10] LABS: LIPASE 35 U/L (12-53)
[2024-06-08 21:13] LABS: ALBUMIN 3.8 G/DL (3.2-5.2); ALKALINE PHOSPHATASE 125 U/L (46-116); ALT/SGPT 23 U/L (7.0-40); AST/SGOT 9 U/L (<34); BILIRUBIN,DIRECT 0.5 MG/DL (<0.4); BILIRUBIN,TOTAL 1.5 MG/DL (0.3-1.2); BLOOD UREA NITROGEN 13 MG/DL (9-23); CALCIUM LEVEL 8.4 MG/DL (8.5-10.1); CARBON DIOXIDE LEVEL 28 MMOL/L (20-31); CHLORIDE LEVEL 109 MMOL/L (98-107); CK-MB VALUE MASS < 1.0 NG/ML (<3.6); CPK CREATINE PHOSPHOKINASE 110 U/L (46-171); CREATININE FOR GFR 1.23 MG/DL (0.70-1.30); GLOMERULAR FILTRATION RATE > 60.0 (>56); GLUCOSE, FASTING 96 MG/DL (60-100); SODIUM LEVEL 141 MMOL/L (136-145); TOTAL PROTEIN 6.6 G/DL (5.7-8.2)
[2024-06-08 21:17] LABS: FREE T4 1.12 NG/DL (0.89-1.76); THYROID STIMULATING HORMONE 1.348 uIU/ML (0.55-4.78)
[2024-06-08] MEDS: MAALOX 30 ML SUSP *UDC PO ONE (21:55)
[2024-06-08 22:40] VITALS: BP 135/82; TEMP 98; O2SAT 98
[2024-06-08] MEDS ORDERED: PEPC1TAB5 PO (23:11)
== END 2024-06-08 23:24 | disposition home or self-care (01) ==
LOC: M ED 20:02
DX: K21.9 Gastro-esophageal reflux disease without esophagitis (principal); J44.9 Chronic obstructive pulmonary disease, unspecified; Z79.51 Long term (current) use of inhaled steroids; Z79.2 Long term (current) use of antibiotics; Z79.899 Other long term (current) drug therapy

== ENCOUNTER 2024-07-20 19:21 | Emergency (ER) | payer MEDICAID, OTHER ==
[~2024-07-20] VITALS: Ht 203.2 cm; Wt 132.0 kg
[~2024-07-20 19:21] MED LIST changes: -DOXY-323 PO; +DOXY-441 PO; +PEPC1TAB5 PO
[2024-07-20 19:25] VITALS: TEMP 97.2
[2024-07-20] MEDS: methocarbamoL 750 MG TAB PO ONE (21:01)
[2024-07-20] MEDS ORDERED: METH-1165 PO (21:54)
[2024-07-20 22:14] VITALS: BP 139/86; O2SAT 97
== END 2024-07-20 22:15 | disposition home or self-care (01) ==
LOC: M ED 19:21
DX: M62.838 Other muscle spasm (principal); Z79.51 Long term (current) use of inhaled steroids; Z79.2 Long term (current) use of antibiotics; Z79.899 Other long term (current) drug therapy
CPT/HCPCS: 20552; 96372; 99283; J0665

== ENCOUNTER → 2024-07-29 | Outpatient (REF) | payer OTHER ==
[~2024-07-29] MED LIST changes: +METH-1165 PO
[2024-07-29 14:32] LABS: Trichomonas vaginalis (AMP) NOT DETECTED (NEGATIVE)
[2024-07-29 14:55] LABS: GC DNA AMPLIFICATION NEGATIVE (NEGATIVE)
== END ==
LOC: M LAB REF 12:23
PROVIDERS: ATTEND Physician Assistant Medical
DX: Z20.2 Contact with and (suspected) exposure to infections with a predominantly sexual mode of transmission (principal)

== ENCOUNTER 2025-06-13 23:38 | Emergency (ER) | payer MEDICARE, MEDICAID ==
[~2025-06-13] VITALS: Ht 203.2 cm; Wt 138.6 kg
[~2025-06-13 23:38] MED LIST changes: -FLOM0.4C39 PO; -IBUP-1022 PO; +IBUP600T42 PO; +KETO120S5 TOP; -KETO2SHA8 TOP; -PROZ20CA11 PO; +PROZ20CA12 PO; +TAMS-18 PO
[2025-06-14 01:57] LABS: KETONE, URINE AUTO RFX TRACE mg/dL (NEGATIVE); MUCUS, URINE RFX LARGE (NEGATIVE); NITRITE, URINE AUTO RFX NEGATIVE (NEGATIVE); RBC, URINE AUTO RFX 3 /HPF (0-3); SQUAM EPITHELIAL CELL UR AURFX 3 /HPF (0-6); WBC, URINE AUTO RFX 9 /HPF (0-3)
[2025-06-14 01:59] LABS: BASO # 0.0 10^3/uL (0.0-0.2); BASO % 0.2 % (0.0-1.0); EOS # 0.2 10^3/uL (0.0-0.5); EOS % 2.7 % (0.0-3.0); LYMPH # 2.2 10^3/uL (1.5-5.0); LYMPH % 25.9 % (24.0-44.0); MONO # 0.8 10^3/uL (0.0-0.8); MONO % 9.8 % (2.0-8.0); NEUTROPHILS # 5.1 10^3/uL (1.5-8.5); NEUTROPHILS % 61.0 % (36.0-66.0); PLATELET COUNT, AUTOMATED 218 10^3/uL (150-450)
[2025-06-14 02:02] LABS: LEUKOCYTE ESTERASE UR AUTO RFX TRACE (NEGATIVE)
[2025-06-14 02:23] LABS: INR 0.94
[2025-06-14 02:32] LABS: ALT/SGPT 31 U/L (7.0-40); AST/SGOT 18 U/L (<34); CALCIUM LEVEL 8.7 MG/DL (8.5-10.1); CARBON DIOXIDE LEVEL 29 MMOL/L (20-31); CHLORIDE LEVEL 106 MMOL/L (98-107); CK-MB VALUE MASS < 1.0 NG/ML (<3.6); CPK CREATINE PHOSPHOKINASE 97 U/L (46-171); CREATININE FOR GFR 1.30 MG/DL (0.70-1.30); GLOMERULAR FILTRATION RATE 66.5 (>56); POTASSIUM SERUM 4.2 MMOL/L (3.5-5.1); SODIUM LEVEL 144 MMOL/L (136-145)
[2025-06-14 04:46] LABS: CK-MB VALUE MASS < 1.0 NG/ML (<3.6); MAGNESIUM LEVEL 2.3 MG/DL (1.8-2.4)
[2025-06-14 04:48] LABS: CPK CREATINE PHOSPHOKINASE 88 U/L (46-171)
[2025-06-14 05:50] VITALS: BP 129/71; TEMP 97.8; O2SAT 97
== END 2025-06-14 05:51 | disposition home or self-care (01) ==
LOC: M ED 23:38
DX: F41.0 Panic disorder [episodic paroxysmal anxiety] (principal); K21.9 Gastro-esophageal reflux disease without esophagitis; F19.11 Other psychoactive substance abuse, in remission

== ENCOUNTER 2025-07-21 07:45 | Emergency (ER) | payer MEDICARE, MEDICAID ==
[~2025-07-21] VITALS: Ht 203.2 cm; Wt 135.9 kg
[2025-07-21] MEDS ORDERED: TIZA2TA (07:52)
[2025-07-21] MEDS ORDERED: BREO1INH (07:52)
[2025-07-21] MEDS ORDERED: PANT40TA29 (07:52)
[2025-07-21 09:18] VITALS: BP 133/79; TEMP 97.2; O2SAT 98
[2025-07-21] MEDS ORDERED: BENZ1LOZ9 PO (09:51)
== END 2025-07-21 10:00 | disposition home or self-care (01) ==
LOC: M ED 07:45
DX: J02.9 Acute pharyngitis, unspecified (principal); J45.909 Unspecified asthma, uncomplicated; F20.9 Schizophrenia, unspecified; Z79.899 Other long term (current) drug therapy

== ENCOUNTER → 2025-08-11 | Outpatient (CLI) | payer MEDICARE, MEDICAID ==
[~2025-08-11] MED LIST changes: +BENZ1LOZ9 PO; +BREO1INH; +PANT40TA29; +TIZA2TA
[2025-08-11 15:16] LABS: BASO # 0.0 10^3/uL (0.0-0.2); BASO % 0.2 % (0.0-1.0); EOS # 0.2 10^3/uL (0.0-0.5); EOS % 2.2 % (0.0-3.0); LYMPH # 2.1 10^3/uL (1.5-5.0); LYMPH % 24.9 % (24.0-44.0); MONO # 0.6 10^3/uL (0.0-0.8); MONO % 7.3 % (2.0-8.0); NEUTROPHILS # 5.4 10^3/uL (1.5-8.5); NEUTROPHILS % 64.9 % (36.0-66.0); PLATELET COUNT, AUTOMATED 240 10^3/uL (150-450)
[2025-08-11 15:22] LABS: PSA SCREENING 2.66 NG/ML (< 4.00)
[2025-08-11 15:29] LABS: ALT/SGPT 53.0 U/L (7.0-40); AST/SGOT 34.0 U/L (<34); CALCIUM LEVEL 8.8 MG/DL (8.5-10.1); CARBON DIOXIDE LEVEL 27.0 MMOL/L (20-31); CHLORIDE LEVEL 107.0 MMOL/L (98-107); CHOLESTEROL LEVEL 172.0 MG/DL (<200); CHOLESTEROL RISK RATIO 4.06 (<5); CREATININE FOR GFR 1.25 MG/DL (0.70-1.30); GLOMERULAR FILTRATION RATE 69.7 (>56); LDL CHOLESTEROL 108.5 MG/DL (<100); NON-HDL-C 129.7 MG/DL; POTASSIUM SERUM 5.0 MMOL/L (3.5-5.1); SODIUM LEVEL 144.0 MMOL/L (136-145); TRIGLYCERIDES LEVEL 106.0 MG/DL (<150)
[2025-08-11 15:30] LABS: FREE T4 1.15 NG/DL (0.89-1.76)
== END ==
LOC: M PLALAB 12:38
PROVIDERS: ATTEND Physician Assistant Medical
DX: J45.20 Mild intermittent asthma, uncomplicated (principal); R03.0 Elevated blood-pressure reading, without diagnosis of hypertension; F41.1 Generalized anxiety disorder; F33.1 Major depressive disorder, recurrent, moderate; Z12.5 Encounter for screening for malignant neoplasm of prostate; Z13.220 Encounter for screening for lipoid disorders
CPT/HCPCS: 36415; 80053; 80061; 84439; 84443; 85025; G0103

== ENCOUNTER 2025-10-07 17:53 | Emergency (ER) | payer MEDICARE, MEDICAID ==
[~2025-10-07] VITALS: Ht 203.2 cm; Wt 135.5 kg
[~2025-10-07 17:53] MED LIST changes: -PROZ20CA12 PO; +PROZ20CA25 PO; +PSYL0.524 PO; -RA F PO
[2025-10-07 17:57] VITALS: TEMP 98
[2025-10-07] MEDS ORDERED: ALBU2.5V10 (18:07)
[2025-10-07] MEDS ORDERED: FAMO40TA3 (18:07)
[2025-10-07 22:47] LABS: BASO # 0.0 10^3/uL (0.0-0.2); BASO % 0.2 % (0.0-1.0); EOS # 0.3 10^3/uL (0.0-0.5); EOS % 3.1 % (0.0-3.0); LYMPH # 2.5 10^3/uL (1.5-5.0); LYMPH % 30.3 % (24.0-44.0); MONO # 0.6 10^3/uL (0.0-0.8); MONO % 6.9 % (2.0-8.0); NEUTROPHILS # 4.9 10^3/uL (1.5-8.5); NEUTROPHILS % 58.9 % (36.0-66.0); PLATELET COUNT, AUTOMATED 229 10^3/uL (150-450)
[2025-10-07 23:11] LABS: CALCIUM LEVEL 8.2 MG/DL (8.5-10.1); CARBON DIOXIDE LEVEL 24 MMOL/L (20-31); CHLORIDE LEVEL 111 MMOL/L (98-107); CK-MB VALUE MASS 1.0 NG/ML (<3.6); CPK CREATINE PHOSPHOKINASE 161 U/L (46-171); CREATININE FOR GFR 1.21 MG/DL (0.70-1.30); GLOMERULAR FILTRATION RATE 72.5 (>56); MB/CK RELATIVE INDEX 0.62 (< OR =4); POTASSIUM SERUM 5.0 MMOL/L (3.5-5.1); SODIUM LEVEL 143 MMOL/L (136-145)
[2025-10-07] MEDS ORDERED: ISOVUE-370 76% 100 ML VIAL As Ordered ONE (23:12)
[2025-10-08 00:15] LABS: CK-MB VALUE MASS < 1.0 NG/ML (<3.6)
[2025-10-08 00:17] LABS: CPK CREATINE PHOSPHOKINASE 137 U/L (46-171)
[2025-10-08 00:45] VITALS: BP 117/85; O2SAT 94
[2025-10-08] MEDS: KETOROLAC 30 MG/ML 1 ML VIAL IV ONE (00:47)
[2025-10-08] MEDS: ACETAMINOPHEN 500 MG TAB PO ONE (00:47)
== END 2025-10-08 01:09 | disposition home or self-care (01) ==
LOC: M ED 17:53
DX: R07.89 Other chest pain (principal); N20.0 Calculus of kidney; F90.9 Attention-deficit hyperactivity disorder, unspecified type; F32.A Depression, unspecified; F41.9 Anxiety disorder, unspecified; Z86.718 Personal history of other venous thrombosis and embolism; Z79.51 Long term (current) use of inhaled steroids; Z79.899 Other long term (current) drug therapy
CPT/HCPCS: 71046; 71275; 80047; 80048; 82550; 82553; 84484; 85025; 93005; 96374; 99284; J1885; Q9967